=== PATIENT | female | born 1990 | race Caucasian/White ===

== ENCOUNTER 2017-01-09 18:43 | Emergency (ER) | payer OTHER ==
[2017-01-09 18:57] VITALS: BP 121/66; PULSE 87; O2SAT 97
--- NOTE | 2017-01-09 19:33 | ERPHSYRPT ---
- History of Present Illness Time Seen by Provider: 01/09/17 19:20 Source: patient Exam Limitations: clinical condition Patient Subjective Stated Complaint: gave blood today and now having weakness and dizziness. states passed out after looking at puncture site on left arm. this happened around 4pm today Triage Nursing Assessment: ambulated to room per self. skin w/d, color normal, resp easy. incident response manager equal, andres, a/o times three. Physician History: PATIENT HAD SYNCOPAL EPISODE AFTER DONATING BLOOD TODAY. HAD ASSOCIATED NAUSEA WITH DIZZINESS. DENIES HEADACHE, CHEST PAIN OR PALPITATIONS. ADMITS TO ONLY BEING HERE DUE TO HER BOSS AT WORK. REFUSES ALL LAB DRAWS. Witnessed: bystander Prior Episodes: multiple episodes today Timing/Duration: today Precipitating Factors: other (BLOOD DONOR) Context: standing Loss of Consciousness: no loss of consciousness Charcter of event(s): almost passed out Allergies/Adverse Reactions: cephalexin monohydrate [From KeEye-Fi] Allergy (Mild, Verified 01/09/17 18:52) Hives Home Medications: Ergocalciferol (Vitamin D2) [Vitamin D] 50,000 unit PO WEEKLY 01/09/17 [History] Hydroxyzine HCl 25 mg [Atarax 25 mg] 25 mg PO TID 01/09/17 [History] Trazodone HCl 50 mg [Desyrel 50 mg] 50 mg PO HS 01/09/17 [History] Venlafaxine HCl ER 75 mg [Effexor XR 75 MG] 75 mg PO DAILY 01/09/17 [ History] Hx Tetanus, Diphtheria Vaccination/Date Given: Yes Hx Influenza Vaccination/Date Given: No Hx Pneumococcal Vaccination/Date Given: No - Past Medical History Pertinent Past Medical History: Yes Neurological History: No Pertinent History ENT History: No Pertinent History Cardiac History: No Pertinent History Respiratory History: No Pertinent History Endocrine Medical History: No Pertinent History Musculoskeletal History: Arthritis GI Medical History: No Pertinent History Psycho-Social History: No Pertinent History Other Medical History: chronic back pain secondary to degenerative disk disease - Past Surgical History Past Surgical History: Yes Musculoskeletal: Orthopedic Surgery Other Surgical History: knee - tonsils - myringotomy - Social History Smoking Status: Current every day smoker How long have you smoked: YRS Exposure to second hand smoke: Yes Drug Use: none Patient Lives Alone: Yes - Female History Hx Now: No (Mirena BC) - Review of Systems Constitutional: No Fever, No Chills Eyes: No Symptoms Ears, Nose, & Throat: No Symptoms Respiratory: No Symptoms, No Cough, No Dyspnea Cardiac: No Symptoms, No Chest Pain, No Edema, No Syncope Abdominal/Gastrointestinal: No Symptoms, No Abdominal Pain, No Nausea, No Vomiting, No Diarrhea Genitourinary Symptoms: No Symptoms, No Dysuria Musculoskeletal: No Back Pain, No Neck Pain Skin: No Rash Neurological: No Dizziness, No Focal Weakness, No Sensory Changes Psychological: No Symptoms Endocrine: No Symptoms All Other Systems: Reviewed and Negative Physical Exam - Nursing Vital Signs Nursing Vital Signs: Initial Vital Signs Temperature 97.8 F Temperature Source Oral Pulse Rate 87 Respiratory Rate 18 Blood Pressure [Right Arm] 121/66 Pain Intensity 3 - [place] Coma Scale Best Eye Response (Christiano): (4) open spontaneously Best Verbal Response (Christiano): (5) oriented Best Motor Response ([place]): (6) obeys commands Christiano Total: 15 - Physical Exam General Appearance: no apparent distress, alert Eye Exam: bilateral eye: normal inspection, PERRL, EOMI Ears, Nose, Throat Exam: normal ENT inspection, pharynx normal, moist mucous membranes Neck Exam: normal inspection, non-tender, supple, full range of motion Respiratory: normal breath sounds, lungs clear, No chest tenderness, No respiratory distress Cardiovascular: regular rate/rhythm, capillary refill <2 sec, No murmur, No pulse deficit Gastrointestinal: soft, No tenderness, No distention, No mass Back Exam: normal inspection, normal range of motion, No CVA tenderness, No vertebral tenderness Extremity Exam: normal inspection, normal range of motion, pelvis stable, No tenderness Peripheral Pulses: carotid (R): 2+, carotid (L): 2+, femoral (R): 2+, femoral (L ): 2+, dorsalis-pedis (R): 2+, dorsalis-pedis (L): 2+ Mental Status: alert, oriented x 3, 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 Exam: normal speech, PERRL, No facial droop Coordination/Gait: normal finger to nose Motor/Sensory: no motor deficit, no sensory deficit, no pronator drift DTR: bicep (R): 2+, bicep (L): 2+, tricep (R): 2+, tricep (L): 2+, knee (R): 2+ , knee (L): 2+, ankle (R): 2+, ankle (L): 2+ Skin Exam: normal color, warm, dry, No rash SpO2 Interpretation: normal SpO2: 97 Oxygen Delivery: Room Air Ordered Tests: Active Orders 24 hr Category Date Time Status Clean Catch Urine Specimen STAT Care 01/09/17 19:31 Active EKG-ER Only STAT Care 01/09/17 19:31 Active IV Insertion STAT Care 01/09/17 19:31 Active BMP Stat Lab 01/09/17 19:31 Ordered CBC W DIFF Stat Lab 01/09/17 19:31 Ordered UA Stat Lab 01/09/17 19:31 Ordered Urine Triage Profile Stat Lab 01/09/17 19:31 Uncollected Medication Summary Generic Name Dose Route Start Last Admin Trade Name Freq PRN Reason Stop Dose Admin Sodium Chloride 1,000 mls @ 500 mls/hr 01/09/17 19:45 Sodium Chloride 0.9% 1000 Ml IV 02/08/17 19:44 .Q2H RASHEL - Progress Progress Note: 01/09/17 19:47, ORTHOSTATIC VS ARE NORMAL LAB TESTS, EKG AND IV FLUIDS ORDERED BUT PATIENT REFUSES AND SIGNS OUT AMA - Departure Time of Disposition: 19:35 Departure Disposition: AMA Clinical Impression: SYNCOPE Condition: Stable Critical Care Time: No Additional Instructions: CONSULT YOUR FAMILY PHYSICIAN FOR FOLLOWUP NEEDED.
[2017-01-09] MEDS ORDERED: Sodium Chloride 0.9% 1000 ML 1,000 ML IV SCH (19:45)
== END 2017-01-09 19:49 | disposition left against medical advice (07) ==
LOC: ED 18:43
DX: R55 Syncope and collapse (principal)
CPT/HCPCS: 99281

== ENCOUNTER 2019-05-22 05:16 | Emergency (ER) | payer OTHER ==
[2019-05-22] MEDS ORDERED: MORPHINE SULFATE 4 MG INJ IV ONE (05:35)
[2019-05-22] MEDS ORDERED: Pepcid 20 MG VIAL IV ONE ×2 (05:35→05:46)
[2019-05-22] MEDS ORDERED: Zofran 4 MG/2 ML VIAL IV ONE (05:35)
[2019-05-22] MEDS ORDERED: Sodium Chloride 0.9% 1000 ML 1,000 ML IV STA (05:35)
--- NOTE | 2019-05-22 05:42 | ERPHSYRPT ---
- History of Present Illness Time Seen by Provider: 05/22/19 05:25 Exam Limitations: no limitations Patient Subjective Stated Complaint: Abdominal pain Triage Nursing Assessment: Patient ambulated back to ED and transferred self to bed. Patient A+O X3. Patient's skin pink, warm and dry. Patient complains of abdominal pain 7/10 constant sharp stabbing pain. Patient states pain has lasted one month. Patient had ultrasound of gallbladder yesterday. Patient has been having vomiting and diarrhea. Patient's abdomen round and soft with BS X4. Physician History: Patient had a sudden onset of upper abdominal pain while asleep one hour prior to coming into the emergency department. Patient has had intermittent type symptoms of the abdominal pain with intermittent diarrhea, nausea and vomiting over the past one month. Activities at Onset: none, sleep Abdominal Pain Onset Location: RUQ, epigastric Pain Radiation: RUQ, LUQ Severity of Pain-Max: severe Severity of Pain-Current: severe Modifying Factors: Improves With: nothing. Worsens With: breathing, coughing, movement, rest Associated Symptoms: diarrhea, nausea, vomiting, No back, No chest pain, No diaphoresis, No fever/chills, No fatigue, No headache, No heartburn, No loss of appetite, No neck pain, No rash, No shortness of breath, No syncope, No weakness Previous symptoms: same symptoms as today, recently seen, other (had a RUQ ultrasound on 05/21/2019) Allergies/Adverse Reactions: cephalexin monohydrate [From Keflex] Allergy (Mild, Verified 05/22/19 05:26) Hives Home Medications: Omeprazole 1 tab PO DAILY 05/22/19 [History] Hx Tetanus, Diphtheria Vaccination/Date Given: Yes Hx Influenza Vaccination/Date Given: No Hx Pneumococcal Vaccination/Date Given: No Immunizations Up to Date: Yes - Review of Systems Constitutional: No Fever, No Chills Eyes: No Eye Pain, No Vision Changes Ears, Nose, & Throat: No Throat Pain, No Hoarse Respiratory: No Cough, No Dyspnea Cardiac: No Chest Pain, No Edema, No Syncope Abdominal/Gastrointestinal: Abdominal Pain, No Nausea, No Vomiting, No Diarrhea , No Constipation, No Hematemesis, No Hematochezia, No Melena Genitourinary Symptoms: No Dysuria, No Frequency, No Hematuria, No Flank Pain Musculoskeletal: No Back Pain, No Neck Pain Skin: No Rash Neurological: No Dizziness, No Focal Weakness, No Sensory Changes Psychological: No Alcohol Abuse, No Anxiety Endocrine: No Polyuria, No Polydipsia Hematologic/Lymphatic: No Easy Bleeding, No Easy Bruising All Other Systems: Reviewed and Negative - Past Medical History Pertinent Past Medical History: Yes Neurological History: No Pertinent History ENT History: No Pertinent History Cardiac History: No Pertinent History Respiratory History: No Pertinent History Endocrine Medical History: No Pertinent History Musculoskeletal History: Arthritis GI Medical History: No Pertinent History History: No Pertinent History Psycho-Social History: Depression Female Reproductive Disorders: No Pertinent History Other Medical History: chronic back pain secondary to degenerative disk disease - Past Surgical History Past Surgical History: Yes Neuro Surgical History: No Pertinent History Cardiac: No Pertinent History Gastrointestinal: No Pertinent History Genitourinary: No Pertinent History Musculoskeletal: Orthopedic Surgery Female Surgical History: No Pertinent History Other Surgical History: knee - tonsils - myringotomy - Social History Smoking Status: Never smoker How long have you smoked: YRS Exposure to second hand smoke: Yes Drug Use: none Patient Lives Alone: No - Female History Hx Last Menstrual Period: Mirena Hx Now: No - Nursing Vital Signs Nursing Vital Signs: Initial Vital Signs Temperature 98.5 F 05/22/19 05:28 Pulse Rate 87 05/22/19 05:28 Respiratory Rate 18 05/22/19 05:28 Blood Pressure 121/93 05/22/19 05:28 O2 Sat by Pulse Oximetry 96 05/22/19 05:28 Pain Scale Pain Intensity 7 - Physical Exam General Appearance: no apparent distress, alert Eye Exam: PERRL/EOMI, eyes nml inspection, No scleral icterus Ears, Nose, Throat Exam: normal ENT inspection, pharynx normal, moist mucous membranes Neck Exam: normal inspection, non-tender, supple, full range of motion Respiratory Exam: normal breath sounds, lungs clear, airway intact, No chest tenderness, No respiratory distress, No diminished breath sounds, No accessory muscle use, No crackles/rales, No rhonchi, No wheezing, No stridor Cardiovascular Exam: regular rate/rhythm, normal heart sounds, normal peripheral pulses, capillary refill <2 sec Gastrointestinal/Abdomen Exam: soft, normal bowel sounds, tenderness (on deep palpation, positive RUQ ultrasound), No mass, No rebound Back Exam: normal inspection, normal range of motion, No CVA tenderness, No vertebral tenderness Extremity Exam: normal inspection, normal range of motion, pelvis stable Neurologic Exam: alert, oriented x 3, cooperative, normal mood/affect, nml cerebellar function, sensation nml, No motor deficits Skin Exam: normal color, warm, dry SpO2 Interpretation: normal SpO2: 96 O2 Delivery: Room Air - Course Nursing assessment & vital signs reviewed: Yes EKG Interpreted by Me: RATE (75), Sinus Rhythm, NORMAL AXIS, NORMAL INTERVALS, NORMAL QRS, NORMAL ST-T - Radiology Ultrasound Exam Gallbladder Ultrasound: Other (Per radiologist report: Mild fatty liver, otherwise negative findings in the gallbladder, kidneys and pancreas as seen with overall impression being negative RUQ sonogram besides mild fatty liver) Ordered Tests: Active Orders 24 hr Category Date Time Status EKG-ER Only STAT Care 05/22/19 05:35 Active IV Insertion STAT Care 05/22/19 05:35 Active NPO (ED) STAT Care 05/22/19 05:35 Active AMYLASE Stat Lab 05/22/19 05:49 Completed CBC W DIFF Stat Lab 05/22/19 05:49 Completed CMP Stat Lab 05/22/19 05:49 Completed HCG,QUALITATIVE URINE Stat Lab 05/22/19 05:49 Completed LIPASE Stat Lab 05/22/19 05:49 Completed Lactic Acid Stat Lab 05/22/19 05:35 Completed TROPONIN Q3H Lab 05/22/19 05:49 Completed TROPONIN Q3H Lab 05/22/19 08:45 Ordered TROPONIN Q3H Lab 05/22/19 11:45 Ordered TROPONIN Q3H Lab 05/22/19 14:45 Ordered TROPONIN Q3H Lab 05/22/19 17:45 Ordered UA W/RFX UR CULTURE Stat Lab 05/22/19 05:49 Completed Medication Summary Discontinued Medications Generic Name Dose Route Start Last Admin Trade Name Freq PRN Reason Stop Dose Admin Famotidine 20 mg 05/22/19 05:35 05/22/19 05:58 Pepcid 20 Mg Vial IV 05/22/19 05:36 20 mg STAT ONE Administration Famotidine Confirm 05/22/19 05:46 Pepcid 20 Mg Vial Administered 05/22/19 05:47 Dose 20 mg IV .STK-MED ONE Sodium Chloride 1,000 mls @ 999 mls/hr 05/22/19 05:35 05/22/19 05:58 Sodium Chloride 0.9% 1000 Ml IV 05/22/19 06:35 999 mls/hr .Q1H1M STA Administration Sodium Chloride Confirm 05/22/19 05:46 Sodium Chloride 0.9% 1000 Ml Administered 05/22/19 05:47 Dose 1,000 mls @ ud .ROUTE .STK-MED ONE Morphine Sulfate 4 mg 05/22/19 05:35 05/22/19 05:58 Morphine Sulfate 4 Mg Inj IV 05/22/19 05:36 4 mg STAT ONE Administration Morphine Sulfate Confirm 05/22/19 05:46 Morphine Sulfate 4 Mg Inj Administered 05/22/19 05:47 Dose 4 mg .ROUTE .STK-MED ONE Ondansetron HCl 4 mg 05/22/19 05:35 05/22/19 05:58 Zofran 4 Mg/2 Ml Vial IV 05/22/19 05:36 4 mg STAT ONE Administration Ondansetron HCl Confirm 05/22/19 05:45 Zofran 4 Mg/2 Ml Vial Administered 05/22/19 05:46 Dose 4 mg .ROUTE .STK-MED ONE Lab/Rad Data: Laboratory Result Diagrams 05/22/19 05:49 05/22/19 05:49 Laboratory Results 05/22/19 05/22/19 05/22/19 Range/Units 05:49 05:49 05:49 WBC (4.0-10.5) K/mm3 RBC (4.1-5.4) M/mm3 Hgb (12.0-16.0) gm/dl Hct (35-47) % MCV (78-100) fl MCH (26-32) pg MCHC (32-36) g/dl RDW (11.5-14.0) % Plt Count (150-450) K/mm3 MPV (6-9.5) fl Gran % (36.0-66.0) % Eos # (Auto) (0-0.5) Absolute Lymphs (auto) (1.0-4.6) Absolute Monos (auto) (0.0-1.3) Lymphocytes % (24.0-44.0) % Monocytes % (0.0-12.0) % Eosinophils % (0.00-5.0) % Basophils % (0.0-0.4) % Absolute Granulocytes (1.4-6.9) Basophils # (0-0.4) Sodium (137-145) mmol/L Potassium (3.5-5.1) mmol/L Chloride (98-107) mmol/L Carbon Dioxide (22-30) mmol/L Anion Gap (5-15) MEQ/L BUN (7-17) mg/dL Creatinine (0.52-1.04) mg/dL Estimated GFR ML/MIN Glucose (74-106) mg/dL Lactic Acid (0.4-2.0) Calcium (8.4-10.2) mg/dL Total Bilirubin (0.2-1.3) mg/dL AST (14-36) U/L ALT (0-35) U/L Alkaline Phosphatase (38-126) U/L Troponin I < 0.012 (0.000-0.034) ng/mL Serum Total Protein (6.3-8.2) g/dL Albumin (3.5-5.0) g/dL Amylase (30-110) U/L Lipase (23-300) U/L Urine Color YELLOW (YELLOW) Urine Appearance CLEAR (CLEAR) Urine pH 7.0 (5-6) Ur Specific [place] 1.011 (1.005-1.025) Urine Protein NEGATIVE (Negative) Urine Ketones NEGATIVE (NEGATIVE) Urine Blood SMALL (0-5) Ajay/ul Urine Nitrite NEGATIVE (NEGATIVE) Urine Bilirubin NEGATIVE (NEGATIVE) Urine Urobilinogen NEGATIVE (0-1) mg/dL Ur Leukocyte Esterase NEGATIVE (NEGATIVE) Urine WBC (Auto) NONE (0-5) /HPF Urine RBC (Auto) NONE (0-2) /HPF U Epithel Cells (Auto) RARE (FEW) /HPF Urine Bacteria (Auto) NONE (NEGATIVE) /HPF Urine Mucus (Auto) SLIGHT (NEGATIVE) /HPF Urine Culture Reflexed NO (NO) Urine Glucose NEGATIVE (NEGATIVE) mg/dL Urine HCG, Qual NEGATIVE (Negative) 05/22/19 05/22/19 05/22/19 Range/Units 05:49 05:49 05:35 WBC 5.1 (4.0-10.5) K/mm3 RBC 4.54 (4.1-5.4) M/mm3 Hgb 15.2 (12.0-16.0) gm/dl Hct 43.9 (35-47) % MCV 96.7 (78-100) fl MCH 33.5 H (26-32) pg MCHC 34.6 (32-36) g/dl RDW 12.7 (11.5-14.0) % Plt Count 147 L (150-450) K/mm3 MPV 8.8 (6-9.5) fl Gran % 58.7 (36.0-66.0) % Eos # (Auto) 0.18 (0-0.5) Absolute Lymphs (auto) 1.65 (1.0-4.6) Absolute Monos (auto) 0.26 (0.0-1.3) Lymphocytes % 32.3 (24.0-44.0) % Monocytes % 5.1 (0.0-12.0) % Eosinophils % 3.5 (0.00-5.0) % Basophils % 0.4 (0.0-0.4) % Absolute Granulocytes 3.00 (1.4-6.9) Basophils # 0.02 (0-0.4) Sodium 138 (137-145) mmol/L Potassium 3.6 (3.5-5.1) mmol/L Chloride 104 (98-107) mmol/L Carbon Dioxide 26 (22-30) mmol/L Anion Gap 12.1 (5-15) MEQ/L BUN 7 (7-17) mg/dL Creatinine 0.70 (0.52-1.04) mg/dL Estimated GFR > 60.0 ML/MIN Glucose 89 (74-106) mg/dL Lactic Acid 1.0 (0.4-2.0) Calcium 8.2 L (8.4-10.2) mg/dL Total Bilirubin 0.50 (0.2-1.3) mg/dL AST 191 H (14-36) U/L ALT 68 H (0-35) U/L Alkaline Phosphatase 109 (38-126) U/L Troponin I (0.000-0.034) ng/mL Serum Total Protein 6.9 (6.3-8.2) g/dL Albumin 3.8 (3.5-5.0) g/dL Amylase 60 (30-110) U/L Lipase 130 (23-300) U/L Urine Color (YELLOW) Urine Appearance (CLEAR) Urine pH (5-6) Ur Specific [place] (1.005-1.025) Urine Protein (Negative) Urine Ketones (NEGATIVE) Urine Blood (0-5) Ajay/ul Urine Nitrite (NEGATIVE) Urine Bilirubin (NEGATIVE) Urine Urobilinogen (0-1) mg/dL Ur Leukocyte Esterase (NEGATIVE) Urine WBC (Auto) (0-5) /HPF Urine RBC (Auto) (0-2) /HPF U Epithel Cells (Auto) (FEW) /HPF Urine Bacteria (Auto) (NEGATIVE) /HPF Urine Mucus (Auto) (NEGATIVE) /HPF Urine Culture Reflexed (NO) Urine Glucose (NEGATIVE) mg/dL Urine HCG, Qual (Negative) - Progress Progress: improved, re-examined Progress Note: 05/22/19 06:43 pain has resolved after IV hydration and IV medication. No abdominal pain on repeat abdominal examination, no CVA tenderness bilaterally. Counseled pt/family regarding: lab results, diagnosis, need for follow-up, rad results - Departure Departure Disposition: Home Clinical Impression: RUQ abdominal pain, Elevated LFTs, Fatty liver, Elevated blood pressure reading without diagnosis of hypertension Condition: Good Critical Care Time: No Referrals: SAHRA GALVEZ MD [Primary Care Provider] - 05/24/19 Instructions: Acute Abdomen (Belly Pain), Nonalcoholic Steatohepatitis (GARCÍA), Toxic Hepatitis Additional Instructions: Return immediately to the emergency department if abdominal pain returns and worsens, any fevers, any nausea vomiting, new skin rashes, new chest pain, shortness of breath, new back pain or any other concerning signs or symptoms that were not present at the return visit for immediate reevaluation in the emergency department.
[2019-05-22] MEDS ORDERED: Zofran 4 MG/2 ML VIAL ONE (05:45)
[2019-05-22] MEDS ORDERED: Sodium Chloride 0.9% 1000 ML 1,000 ML ONE (05:46)
[2019-05-22] MEDS ORDERED: MORPHINE SULFATE 4 MG INJ ONE (05:46)
[2019-05-22 05:48] LABS: BASOPHIL % 0.4 % (0.0-0.4); Basophil (Absolute #) 0.02 (0-0.4); Eosinophil % 3.5 % (0.00-5.0); Eosinophil (Absolute #) 0.18 (0-0.5); Granulocytes % 58.7 % (36.0-66.0); Hematocrit 43.9 % (35-47); Hemoglobin 15.2 gm/dl (12.0-16.0); Lymphocyte (Absolute #) 1.65 (1.0-4.6); Lymphocytes % 32.3 % (24.0-44.0); Mean Cell Volume 96.7 fl (78-100); Mean Corpuscular Hemoglobin 33.5 pg (26-32); Mean Corpuscular Hgb Concent. 34.6 g/dl (32-36); Mean Platelet Volume 8.8 fl (6-9.5); Monocyte (Absolute #) 0.26 (0.0-1.3); Monocytes % 5.1 % (0.0-12.0); Platelet Count 147 K/mm3 (150-450); Red Blood Count 4.54 M/mm3 (4.1-5.4); Red Cell Distribution Width 12.7 % (11.5-14.0); White Blood Count 5.1 K/mm3 (4.0-10.5)
[2019-05-22 05:49] LABS: Appearance CLEAR (CLEAR); Bilirubin NEGATIVE (NEGATIVE); Blood SMALL Ery/ul (0-5); Epithelial Cells RARE /HPF (FEW); Glucose NEGATIVE (NEGATIVE); Ketones NEGATIVE (NEGATIVE); Leukocyte Esterase NEGATIVE (NEGATIVE); Mucus SLIGHT /HPF (NEGATIVE); Nitrite NEGATIVE (NEGATIVE); Protein,Urine Dip NEGATIVE (Negative); Specific Gravity 1.011 (1.005-1.025); Urobilinogen NEGATIVE mg/dL (0-1)
[2019-05-22 06:01] LABS: ALBUMIN 3.8 g/dL (3.5-5.0); ALKALINE PHOSPHATASE 109 U/L (38-126); AMYLASE 60 U/L (30-110); ANION GAP 12.1 MEQ/L (5-15); BLOOD UREA NITROGEN 7 mg/dL (7-17); CHLORIDE 104 mmol/L (98-107); Calcium 8.2 mg/dL (8.4-10.2); Carbon Dioxide 26 mmol/L (22-30); Glucose 89 mg/dL (74-106); Potassium 3.6 mmol/L (3.5-5.1); SGOT/AST 191 U/L (14-36); SGPT/ALT 68 U/L (0-35); SODIUM 138 mmol/L (137-145); Total Protein 6.9 g/dL (6.3-8.2)
[2019-05-22 06:07] LABS: LIPASE 130 U/L (23-300)
[2019-05-22 06:58] VITALS: BP 128/86; PULSE 80; O2SAT 97
== END 2019-05-22 07:17 | disposition home or self-care (01) ==
LOC: ED 05:16
DX: K77 Liver disorders in diseases classified elsewhere (principal); R10.11 Right upper quadrant pain; R79.89 Other specified abnormal findings of blood chemistry; K76.0 Fatty (change of) liver, not elsewhere classified
CPT/HCPCS: 36000; 36415; 80053; 81001; 82150; 83605; 83690; 84484; 84703; 85025; 93005; 96360; 96374; 96375; 99284; J2270; J2405

== ENCOUNTER 2020-04-09 10:45 | Observation (INO) | payer OTHER ==
--- NOTE | 2020-04-09 11:15 | ERPHSYRPT ---
- History of Present Illness Time Seen by Provider: 04/09/20 11:11 Historian: patient Exam Limitations: no limitations Patient Subjective Stated Complaint: vomiting/abdominal pain Triage Nursing Assessment: Patient ambulated back to ED and transferred self to bed. Patient A+O X3. Patient's skin flushed, warm and dry. Patient states she is having right sided abdominal pain with vomiting and diarrhea. Patient states she was seen in [facility] care on Friday and prescribed Zofran and was made an appointment with Dr. Hardy for April 11. Patient states she was scheduled last to have her gallblader removed, but cancelled surgery. Patient's a bdomen soft and round with BS X 4. Patient complains of constant sharp pain in RUQ 8/10. Physician History: vomiting/abdominal pain for 2 days Patient is 30-year-old female came to the emergency room with abdominal pain nausea vomiting and right upper quadrant abdominal pain for last 1 to 2 days. Patient had gallbladder ultrasound last May and at that time patient HIDA scan showed that patient ejection fraction is only 26% which was suggestive of chronic cholecystitis. At that time surgery was scheduled but somehow patient did not got her surgery done. Since last 2 days she was having severe right upper quadrant abdominal pain associated with nausea and vomiting. Denies any fever diarrhea chest pain headache. Timing/Duration: yesterday Activities at Onset: none Quality: cramping Abdominal Pain Onset Location: RUQ Pain Radiation: no radiation Severity of Pain-Max: moderate Severity of Pain-Current: moderate Modifying Factors: Improves With: nothing Associated Symptoms: loss of appetite, nausea, vomiting Previous symptoms: same symptoms as today Allergies/Adverse Reactions: cephalexin monohydrate [From Keflex] Allergy (Mild, Verified 04/09/20 10:54) Hives Home Medications: Omeprazole 1 tab PO DAILY 05/22/19 [History] Hx Tetanus, Diphtheria Vaccination/Date Given: Yes Hx Influenza Vaccination/Date Given: Yes Hx Pneumococcal Vaccination/Date Given: No Immunizations Up to Date: Yes Travel Risk - International Travel Have you traveled outside of the country in past 3 weeks: No - Coronavirus Screening Are you exhibiting any of the following symptoms?: No Symptoms: Vomiting/Diarrhea Close contact with a COVID-19 positive Pt in past 14-21 Days: No - Review of Systems Constitutional: No Fever, No Chills Eyes: No Symptoms Ears, Nose, & Throat: No Symptoms Respiratory: No Cough, No Dyspnea Cardiac: No Chest Pain, No Edema, No Syncope Abdominal/Gastrointestinal: Abdominal Pain, Nausea, Vomiting, No Diarrhea Genitourinary Symptoms: No Dysuria Musculoskeletal: No Back Pain, No Neck Pain Skin: No Rash Neurological: No Dizziness, No Focal Weakness, No Sensory Changes Psychological: No Symptoms Endocrine: No Symptoms All Other Systems: Reviewed and Negative - Past Medical History Pertinent Past Medical History: Yes Neurological History: No Pertinent History ENT History: No Pertinent History Cardiac History: No Pertinent History Respiratory History: No Pertinent History Endocrine Medical History: No Pertinent History Musculoskeletal History: Arthritis GI Medical History: No Pertinent History History: No Pertinent History Psycho-Social History: Anxiety, Attention Deficit Disorder, Depression Female Reproductive Disorders: No Pertinent History Other Medical History: chronic back pain secondary to degenerative disk disease. smoker and vaping. - Past Surgical History Past Surgical History: Yes Neuro Surgical History: No Pertinent History Cardiac: No Pertinent History Respiratory: No Pertinent History Gastrointestinal: No Pertinent History Genitourinary: No Pertinent History Musculoskeletal: Orthopedic Surgery Female Surgical History: No Pertinent History Other Surgical History: knee - tonsils - myringotomy - Social History Smoking Status: Current every day smoker How long have you smoked: 16 Exposure to second hand smoke: No Drug Use: marijuana Patient Lives Alone: No - Female History Hx Last Menstrual Period: Mirena Hx Now: No - Nursing Vital Signs Nursing Vital Signs: Initial Vital Signs Temperature 98.6 F 04/09/20 10:55 Pulse Rate 90 04/09/20 10:55 Respiratory Rate 18 04/09/20 10:55 Blood Pressure 136/100 04/09/20 10:55 O2 Sat by Pulse Oximetry 97 04/09/20 10:55 Pain Scale Pain Intensity 8 - Physical Exam General Appearance: no apparent distress, alert Eye Exam: PERRL/EOMI, eyes nml inspection Ears, Nose, Throat Exam: normal ENT inspection, pharynx normal, moist mucous membranes Neck Exam: normal inspection, non-tender, supple, full range of motion Respiratory Exam: normal breath sounds, lungs clear, No respiratory distress Cardiovascular Exam: regular rate/rhythm, normal heart sounds Gastrointestinal/Abdomen Exam: soft, tenderness (right upper quadrant), No mass Back Exam: normal inspection, normal range of motion, No CVA tenderness, No vertebral tenderness Extremity Exam: normal inspection, normal range of motion, pelvis stable Neurologic Exam: alert, oriented x 3, cooperative, normal mood/affect, nml cerebellar function, sensation nml, No motor deficits Skin Exam: normal color, warm, dry SpO2: 97 - Course Nursing assessment & vital signs reviewed: Yes Ordered Tests: Active Orders 24 hr Category Date Time Status AMYLASE Stat Lab 04/09/20 11:20 Completed CBC W DIFF Stat Lab 04/09/20 11:20 Completed CMP Stat Lab 04/09/20 11:20 Completed CULTURE,URINE Stat Lab 04/09/20 11:27 Received HCG,QUALITATIVE URINE Stat Lab 04/09/20 11:27 Completed LIPASE Stat Lab 04/09/20 11:20 Completed Lactic Acid Stat Lab 04/09/20 11:17 Completed UA W/RFX UR CULTURE Stat Lab 04/09/20 11:27 Completed Transfer Order Routine Transfer 04/09/20 Ordered Medication Summary Generic Name Dose Route Start Last Admin Trade Name Freq PRN Reason Stop Dose Admin Levofloxacin/Dextrose 500 mg in 100 mls @ 100 mls/hr 04/09/20 11:56 Levofloxacin 500mg/100ml D5w IV 04/09/20 12:55 STAT STA Discontinued Medications Generic Name Dose Route Start Last Admin Trade Name Freq PRN Reason Stop Dose Admin Famotidine 20 mg 04/09/20 11:17 04/09/20 11:30 Pepcid 20 Mg Vial IV 04/09/20 11:18 20 mg STAT ONE Administration Famotidine Confirm 04/09/20 11:29 Pepcid 20 Mg Vial Administered 04/09/20 11:30 Dose 20 mg IV .STK-MED ONE Sodium Chloride 1,000 mls @ 999 mls/hr 04/09/20 11:17 04/09/20 11:30 Sodium Chloride 0.9% 1000 Ml IV 04/09/20 12:17 999 mls/hr .Q1H1M STA Administration Sodium Chloride Confirm 04/09/20 11:29 Sodium Chloride 0.9% 1000 Ml Administered 04/09/20 11:30 Dose 1,000 mls @ ud .ROUTE .STK-MED ONE Morphine Sulfate 4 mg 04/09/20 12:11 Morphine Sulfate 4 Mg Inj IV 04/09/20 12:12 STAT ONE Ondansetron HCl 4 mg 04/09/20 11:17 04/09/20 11:30 Zofran 4 Mg/2 Ml Vial IV 04/09/20 11:18 4 mg STAT ONE Administration Ondansetron HCl Confirm 04/09/20 11:29 Zofran 4 Mg/2 Ml Vial Administered 04/09/20 11:30 Dose 4 mg .ROUTE .STK-MED ONE Pantoprazole Sodium 40 mg 04/09/20 11:17 04/09/20 11:30 Protonix 40 Mg Iv IV 04/09/20 11:18 40 mg STAT ONE Administration Pantoprazole Sodium Confirm 04/09/20 11:29 Protonix 40 Mg Iv Administered 04/09/20 11:30 Dose 40 mg IV .STK-MED ONE Lab/Rad Data: Laboratory Result Diagrams 04/09/20 11:20 04/09/20 11:20 Laboratory Results 04/09/20 04/09/20 04/09/20 Range/Units 11:27 11:27 11:20 WBC (4.0-10.5) K/mm3 RBC (4.1-5.4) M/mm3 Hgb (12.0-16.0) gm/dl Hct (35-47) % MCV (78-100) fl MCH (26-32) pg MCHC (32-36) g/dl RDW (11.5-14.0) % Plt Count (150-450) K/mm3 MPV (7.5-11.0) fl Gran % (36.0-66.0) % Eos # (Auto) (0-0.5) Absolute Lymphs (auto) (1.0-4.6) Absolute Monos (auto) (0.0-1.3) Lymphocytes % (24.0-44.0) % Monocytes % (0.0-12.0) % Eosinophils % (0.00-5.0) % Basophils % (0.0-0.4) % Absolute Granulocytes (1.4-6.9) Basophils # (0-0.4) Sodium 137 (137-145) mmol/L Potassium 3.7 (3.5-5.1) mmol/L Chloride 104 (98-107) mmol/L Carbon Dioxide 22 (22-30) mmol/L Anion Gap 14.1 (5-15) MEQ/L BUN 3 L (7-17) mg/dL Creatinine 0.71 (0.52-1.04) mg/dL Estimated GFR > 60.0 ML/MIN Glucose 111 H (74-106) mg/dL Lactic Acid (0.4-2.0) Calcium 9.7 (8.4-10.2) mg/dL Total Bilirubin 0.70 (0.2-1.3) mg/dL AST 21 (14-36) U/L ALT 11 (0-35) U/L Alkaline Phosphatase 114 (38-126) U/L Serum Total Protein 8.3 H (6.3-8.2) g/dL Albumin 4.6 (3.5-5.0) g/dL Amylase 67 (30-110) U/L Lipase 58 (23-300) U/L Urine Color YELLOW (YELLOW) Urine Appearance SLIGHTLY CLOUDY (CLEAR) Urine pH 7.0 (5-6) Ur Specific [place] 1.008 (1.005-1.025) Urine Protein NEGATIVE (Negative) Urine Ketones NEGATIVE (NEGATIVE) Urine Blood SMALL (0-5) Ajay/ul Urine Nitrite NEGATIVE (NEGATIVE) Urine Bilirubin NEGATIVE (NEGATIVE) Urine Urobilinogen NEGATIVE (0-1) mg/dL Ur Leukocyte Esterase LARGE (NEGATIVE) Urine WBC (Auto) 51-100 (0-5) /HPF Urine RBC (Auto) 11-15 (0-2) /HPF U Epithel Cells (Auto) FEW (FEW) /HPF Urine Bacteria (Auto) RARE (NEGATIVE) /HPF Urine Culture Reflexed YES (NO) Urine Glucose NEGATIVE (NEGATIVE) mg/dL Urine HCG, Qual NEGATIVE (Negative) 04/09/20 04/09/20 Range/Units 11:20 11:17 WBC 16.2 H (4.0-10.5) K/mm3 RBC 5.46 H (4.1-5.4) M/mm3 Hgb 16.9 H (12.0-16.0) gm/dl Hct 49.3 H (35-47) % MCV 90.3 (78-100) fl MCH 31.0 (26-32) pg MCHC 34.3 (32-36) g/dl RDW 12.1 (11.5-14.0) % Plt Count 449 (150-450) K/mm3 MPV 9.3 (7.5-11.0) fl Gran % 80.4 H (36.0-66.0) % Eos # (Auto) 0.10 (0-0.5) Absolute Lymphs (auto) 2.42 (1.0-4.6) Absolute Monos (auto) 0.62 (0.0-1.3) Lymphocytes % 15.0 L (24.0-44.0) % Monocytes % 3.8 (0.0-12.0) % Eosinophils % 0.6 (0.00-5.0) % Basophils % 0.2 (0.0-0.4) % Absolute Granulocytes 13.00 H (1.4-6.9) Basophils # 0.04 (0-0.4) Sodium (137-145) mmol/L Potassium (3.5-5.1) mmol/L Chloride (98-107) mmol/L Carbon Dioxide (22-30) mmol/L Anion Gap (5-15) MEQ/L BUN (7-17) mg/dL Creatinine (0.52-1.04) mg/dL Estimated GFR ML/MIN Glucose (74-106) mg/dL Lactic Acid 1.4 (0.4-2.0) Calcium (8.4-10.2) mg/dL Total Bilirubin (0.2-1.3) mg/dL AST (14-36) U/L ALT (0-35) U/L Alkaline Phosphatase (38-126) U/L Serum Total Protein (6.3-8.2) g/dL Albumin (3.5-5.0) g/dL Amylase (30-110) U/L Lipase (23-300) U/L Urine Color (YELLOW) Urine Appearance (CLEAR) Urine pH (5-6) Ur Specific [place] (1.005-1.025) Urine Protein (Negative) Urine Ketones (NEGATIVE) Urine Blood (0-5) Ajay/ul Urine Nitrite (NEGATIVE) Urine Bilirubin (NEGATIVE) Urine Urobilinogen (0-1) mg/dL Ur Leukocyte Esterase (NEGATIVE) Urine WBC (Auto) (0-5) /HPF Urine RBC (Auto) (0-2) /HPF U Epithel Cells (Auto) (FEW) /HPF Urine Bacteria (Auto) (NEGATIVE) /HPF Urine Culture Reflexed (NO) Urine Glucose (NEGATIVE) mg/dL Urine HCG, Qual (Negative) - Progress Progress: unchanged Progress Note: 04/09/20 12:[address] Carter Hardy who is a surgeon. He advised patient to be admitted and ordered a gallbladder ultrasound in the morning and then they will proceed for further surgical intervention tomorrow. Discussed with DrMarylou: Haven Fam B.Lynch Will see patient in: hospital (observation) Counseled pt/family regarding: lab results, diagnosis, need for follow-up, rad results - Departure Departure Disposition: Observation Clinical Impression: RUQ abdominal pain, Chronic cholecystitis Condition: Fair Critical Care Time: Yes Critical Care Time(excluding separately billable procedures): Critical 30-74 mins Referrals: SAHRA GALVEZ MD [Primary Care Provider] -
[2020-04-09] MEDS ORDERED: Sodium Chloride 0.9% 1000 ML 1,000 ML IV STA (11:17)
[2020-04-09] MEDS ORDERED: Pepcid 20 MG VIAL IV ONE ×2 (11:17→11:29)
[2020-04-09] MEDS ORDERED: PROTONIX 40 MG IV IV ONE ×2 (11:17→11:29)
[2020-04-09] MEDS ORDERED: Zofran 4 MG/2 ML VIAL IV ONE (11:17)
[2020-04-09 11:24] LABS: BASOPHIL % 0.2 % (0.0-0.4); Basophil (Absolute #) 0.04 (0-0.4); Eosinophil % 0.6 % (0.00-5.0); Hematocrit 49.3 % (35-47); Hemoglobin 16.9 gm/dl (12.0-16.0); Lymphocyte (Absolute #) 2.42 (1.0-4.6); Mean Cell Volume 90.3 fl (78-100); Mean Corpuscular Hgb Concent. 34.3 g/dl (32-36); Mean Platelet Volume 9.3 fl (7.5-11.0); Monocyte (Absolute #) 0.62 (0.0-1.3); Monocytes % 3.8 % (0.0-12.0); Neutrophil % 80.4 % (36.0-66.0); Platelet Count 449 K/mm3 (150-450); Red Blood Count 5.46 M/mm3 (4.1-5.4); Red Cell Distribution Width 12.1 % (11.5-14.0); White Blood Count 16.2 K/mm3 (4.0-10.5)
[2020-04-09] MEDS ORDERED: Zofran 4 MG/2 ML VIAL ONE (11:29)
[2020-04-09] MEDS ORDERED: Sodium Chloride 0.9% 1000 ML 1,000 ML ONE (11:29)
[2020-04-09 11:39] LABS: ALBUMIN 4.6 g/dL (3.5-5.0); ALKALINE PHOSPHATASE 114 U/L (38-126); AMYLASE 67 U/L (30-110); ANION GAP 14.1 MEQ/L (5-15); BLOOD UREA NITROGEN 3 mg/dL (7-17); CHLORIDE 104 mmol/L (98-107); Calcium 9.7 mg/dL (8.4-10.2); Carbon Dioxide 22 mmol/L (22-30); Creatinine 1 0.71 mg/dL (0.52-1.04); Glucose 111 mg/dL (74-106); LIPASE 58 U/L (23-300); Potassium 3.7 mmol/L (3.5-5.1); SGOT/AST 21 U/L (14-36); SGPT/ALT 11 U/L (0-35); SODIUM 137 mmol/L (137-145); Total Protein 8.3 g/dL (6.3-8.2)
[2020-04-09 11:47] LABS: Appearance SLIGHTLY CLOUDY (CLEAR); Bacteria RARE /HPF (NEGATIVE); Bilirubin NEGATIVE (NEGATIVE); Blood SMALL Ery/ul (0-5); Epithelial Cells FEW /HPF (FEW); Glucose NEGATIVE (NEGATIVE); Ketones NEGATIVE (NEGATIVE); Leukocyte Esterase LARGE (NEGATIVE); Nitrite NEGATIVE (NEGATIVE); Protein,Urine Dip NEGATIVE (Negative); Specific Gravity 1.008 (1.005-1.025); Urobilinogen NEGATIVE mg/dL (0-1); WBC 51-100 /HPF (0-5)
[2020-04-09] MEDS ORDERED: Levofloxacin 500MG/100ML D5W 500 MG/100 ML BAG IV STA (11:56)
[2020-04-09] MEDS ORDERED: MORPHINE SULFATE 4 MG INJ IV ONE (12:11)
[2020-04-09] MEDS ORDERED: Levofloxacin 500MG/100ML D5W 500 MG/100 ML BAG IV ONE (12:33)
[2020-04-09] MEDS ORDERED: MORPHINE SULFATE 4 MG INJ ONE (12:33)
[2020-04-09] MEDS: Sodium Chloride 0.9% 1000 ML 1,000 ML IV SCH ×2 (13:47→23:51)
[2020-04-09] MEDS: Zofran 4 MG/2 ML VIAL IV PRN ×2 (13:48→19:49)
[2020-04-09] MEDS: NICODERM CQ 14 MG TOP SCH (15:13)
[2020-04-09] MEDS: MORPHINE SULFATE 4 MG INJ IV PRN ×2 (16:35→20:35)
[2020-04-10] MEDS: MORPHINE SULFATE 4 MG INJ IV PRN ×3 (00:39→17:45)
[2020-04-10] MEDS: Zofran 4 MG/2 ML VIAL IV PRN ×3 (03:52→23:23)
[2020-04-10 05:01] LABS: Absolute Neutrophil Ct (ANC) 8.18 (1.4-6.9); BASOPHIL % 0.3 % (0.0-0.4); Basophil (Absolute #) 0.04 (0-0.4); Eosinophil % 3.5 % (0.00-5.0); Eosinophil (Absolute #) 0.46 (0-0.5); Hematocrit 42.9 % (35-47); Hemoglobin 14.3 gm/dl (12.0-16.0); Lymphocyte (Absolute #) 3.53 (1.0-4.6); Lymphocytes % 26.9 % (24.0-44.0); Mean Cell Volume 92.7 fl (78-100); Mean Corpuscular Hemoglobin 30.9 pg (26-32); Mean Corpuscular Hgb Concent. 33.3 g/dl (32-36); Mean Platelet Volume 9.2 fl (7.5-11.0); Monocytes % 6.9 % (0.0-12.0); Neutrophil % 62.4 % (36.0-66.0); Platelet Count 310 K/mm3 (150-450); Red Blood Count 4.63 M/mm3 (4.1-5.4); White Blood Count 13.1 K/mm3 (4.0-10.5)
[2020-04-10 05:20] LABS: ALBUMIN 3.4 g/dL (3.5-5.0); ALKALINE PHOSPHATASE 74 U/L (38-126); CHLORIDE 108 mmol/L (98-107); Calcium 8.5 mg/dL (8.4-10.2); Carbon Dioxide 23 mmol/L (22-30); Creatinine 1 0.61 mg/dL (0.52-1.04); Glucose 97 mg/dL (74-106); Potassium 3.5 mmol/L (3.5-5.1); SGOT/AST 15 U/L (14-36); SGPT/ALT 7 U/L (0-35); SODIUM 136 mmol/L (137-145); Total Protein 6.4 g/dL (6.3-8.2)
[2020-04-10 05:34] LABS: BLOOD UREA NITROGEN 2 mg/dL (7-17)
--- NOTE | 2020-04-10 08:34 | PCM.HP ---
History of Present Illness - Chief Complaint Chief Complaint: chronic cholecystitis History of Present Illness: is a 30 year old female with right upper quadrant pain, nausea and vomiting for 3 days prior to arrival. states she has had similar intermittent issues in the past. had a HIDA scan in 05/2019 with EF 26% and suggestive of chronic cholecystitis, she was scheduled to have cholecystectomy with Dr Enoc Hardy in the fall but cancelled due to a family member talking her out of having surgery. She has felt feverish but no known objective fever. had negative covid testing on 04/01, no cough, no shortness of breath, no sore throat. - Review of Systems Constitutional: No Fever, No Chills Respiratory: No Cough, No Short Of Breath Cardiac: No Chest Pain, No Edema, No Syncope Abdominal/Gastrointestinal: Abdominal Pain, Nausea, Vomiting, No Diarrhea, No Constipation Genitourinary Symptoms: No Dysuria Skin: No Rash All Other Systems: Reviewed and Negative Medications & Allergies Home Medications: Home Medication List Omeprazole 20 mg PO DAILY 05/22/19 [History Confirmed 04/09/20] Allergies/Adverse Reactions: Allergies Allergy/AdvReac Type Severity Reaction Status Date / Time cephalexin monohydrate Allergy Mild Hives Verified 04/09/20 10:54 [From Keflex] - Past Medical History Past Medical History: Yes Neurological History: No Pertinent History ENT History: Other Cardiac History: No Pertinent History Respiratory History: No Pertinent History Endocrine Medical History: Liver Disease Musculoskelatal History: No Pertinent History GI Medical History: No Pertinent History History: Other Pyscho-Social History: Anxiety, Depression Reproductive Disorders: No Pertinent History Comment: chronic back pain secondary to degenerative disk disease. smoker and vaping. wears glasses, fatty liver, UTI - Female History Hx Last Menstrual Period: Mirena Are you now?: No - Past Surgical History Past Surgical History: Yes Neuro Surgical History: No Pertinent History Cardiac History: No Pertinent History Respiratory Surgery: No Pertinent History GI Surgical History: No Pertinent History Genitourinary Surgical Hx: No Pertinent History Musculskeletal Surgical Hx: Orthopedic Surgery Female Surgical History: No Pertinent History Other Surgical History: knee - tonsils - adenoids - tubes in ears - Social History Smoking Status: Current every day smoker How long have you smoked: 12 years Exposure to second hand smoke: Yes Alcohol: None Drug Use: none - Physical Exam Vital Signs: Vital Signs - 24 hr Temp Pulse Resp BP Pulse Ox 04/10/20 07:24 99.1 F 77 16 122/67 98 04/10/20 04:10 98.7 F 67 16 112/55 96 04/09/20 23:51 98.7 F 71 18 119/76 96 04/09/20 20:00 98.2 F 73 16 113/69 97 04/09/20 16:00 99.5 F 71 16 128/72 95 04/09/20 14:54 98.6 F 67 20 102/84 04/09/20 12:46 67 20 102/84 04/09/20 12:25 97 04/09/20 10:55 98.6 F 90 18 136/100 97 General Appearance: no apparent distress Neurologic Exam: alert, oriented x 3, cooperative Respiratory Exam: normal breath sounds, lungs clear, No respiratory distress Cardiovascular Exam: regular rate/rhythm, normal heart sounds, normal peripheral pulses Gastrointestinal/Abdomen Exam: soft, normal bowel sounds, tenderness (mild RUQ), No guarding, No rebound, No hernia, No hepatomegaly, No organomegaly Extremity Exam: normal inspection, normal range of motion, pelvis stable Skin Exam: normal color, warm, dry, No rash Results - Labs Lab/Micro Results: Lab Results-Last 24 Hours 04/09/20 04/09/20 04/09/20 Range/Units 11:17 11:20 11:20 WBC 16.2 H (4.0-10.5) K/mm3 RBC 5.46 H (4.1-5.4) M/mm3 Hgb 16.9 H (12.0-16.0) gm/dl Hct 49.3 H (35-47) % MCV 90.3 (78-100) fl MCH 31.0 (26-32) pg MCHC 34.3 (32-36) g/dl RDW 12.1 (11.5-14.0) % Plt Count 449 (150-450) K/mm3 MPV 9.3 (7.5-11.0) fl Gran % 80.4 H (36.0-66.0) % Eos # (Auto) 0.10 (0-0.5) Absolute Lymphs (auto) 2.42 (1.0-4.6) Absolute Monos (auto) 0.62 (0.0-1.3) Lymphocytes % 15.0 L (24.0-44.0) % Monocytes % 3.8 (0.0-12.0) % Eosinophils % 0.6 (0.00-5.0) % Basophils % 0.2 (0.0-0.4) % Absolute Granulocytes 13.00 H (1.4-6.9) Basophils # 0.04 (0-0.4) Sodium 137 (137-145) mmol/L Potassium 3.7 (3.5-5.1) mmol/L Chloride 104 (98-107) mmol/L Carbon Dioxide 22 (22-30) mmol/L Anion Gap 14.1 (5-15) MEQ/L BUN 3 L (7-17) mg/dL Creatinine 0.71 (0.52-1.04) mg/dL Estimated GFR > 60.0 ML/MIN Glucose 111 H (74-106) mg/dL Lactic Acid 1.4 (0.4-2.0) Calcium 9.7 (8.4-10.2) mg/dL Total Bilirubin 0.70 (0.2-1.3) mg/dL AST 21 (14-36) U/L ALT 11 (0-35) U/L Alkaline Phosphatase 114 (38-126) U/L Serum Total Protein 8.3 H (6.3-8.2) g/dL Albumin 4.6 (3.5-5.0) g/dL Amylase 67 (30-110) U/L Lipase 58 (23-300) U/L Urine Color (YELLOW) Urine Appearance (CLEAR) Urine pH (5-6) Ur Specific [place] (1.005-1.025) Urine Protein (Negative) Urine Ketones (NEGATIVE) Urine Blood (0-5) Ajay/ul Urine Nitrite (NEGATIVE) Urine Bilirubin (NEGATIVE) Urine Urobilinogen (0-1) mg/dL Ur Leukocyte Esterase (NEGATIVE) Urine WBC (Auto) (0-5) /HPF Urine RBC (Auto) (0-2) /HPF U Epithel Cells (Auto) (FEW) /HPF Urine Bacteria (Auto) (NEGATIVE) /HPF Urine Culture Reflexed (NO) Urine Glucose (NEGATIVE) mg/dL Urine HCG, Qual (Negative) 08/02/20 08/02/20 08/03/20 Range/Units 11:27 11:27 04:40 WBC 13.1 H (4.0-10.5) K/mm3 RBC 4.63 (4.1-5.4) M/mm3 Hgb 14.3 (12.0-16.0) gm/dl Hct 42.9 (35-47) % MCV 92.7 (78-100) fl MCH 30.9 (26-32) pg MCHC 33.3 (32-36) g/dl RDW 12.0 (11.5-14.0) % Plt Count 310 (150-450) K/mm3 MPV 9.2 (7.5-11.0) fl Gran % 62.4 (36.0-66.0) % Eos # (Auto) 0.46 (0-0.5) Absolute Lymphs (auto) 3.53 (1.0-4.6) Absolute Monos (auto) 0.90 (0.0-1.3) Lymphocytes % 26.9 (24.0-44.0) % Monocytes % 6.9 (0.0-12.0) % Eosinophils % 3.5 (0.00-5.0) % Basophils % 0.3 (0.0-0.4) % Absolute Granulocytes 8.18 H (1.4-6.9) Basophils # 0.04 (0-0.4) Sodium (137-145) mmol/L Potassium (3.5-5.1) mmol/L Chloride (98-107) mmol/L Carbon Dioxide (22-30) mmol/L Anion Gap (5-15) MEQ/L BUN (7-17) mg/dL Creatinine (0.52-1.04) mg/dL Estimated GFR ML/MIN Glucose (74-106) mg/dL Lactic Acid (0.4-2.0) Calcium (8.4-10.2) mg/dL Total Bilirubin (0.2-1.3) mg/dL AST (14-36) U/L ALT (0-35) U/L Alkaline Phosphatase (38-126) U/L Serum Total Protein (6.3-8.2) g/dL Albumin (3.5-5.0) g/dL Amylase (30-110) U/L Lipase (23-300) U/L Urine Color YELLOW (YELLOW) Urine Appearance SLIGHTLY CLOUDY (CLEAR) Urine pH 7.0 (5-6) Ur Specific [place] 1.008 (1.005-1.025) Urine Protein NEGATIVE (Negative) Urine Ketones NEGATIVE (NEGATIVE) Urine Blood SMALL (0-5) Ajay/ul Urine Nitrite NEGATIVE (NEGATIVE) Urine Bilirubin NEGATIVE (NEGATIVE) Urine Urobilinogen NEGATIVE (0-1) mg/dL Ur Leukocyte Esterase LARGE (NEGATIVE) Urine WBC (Auto) 51-100 (0-5) /HPF Urine RBC (Auto) 11-15 (0-2) /HPF U Epithel Cells (Auto) FEW (FEW) /HPF Urine Bacteria (Auto) RARE (NEGATIVE) /HPF Urine Culture Reflexed YES (NO) Urine Glucose NEGATIVE (NEGATIVE) mg/dL Urine HCG, Qual NEGATIVE (Negative) 04/10/20 Range/Units 04:40 WBC (4.0-10.5) K/mm3 RBC (4.1-5.4) M/mm3 Hgb (12.0-16.0) gm/dl Hct (35-47) % MCV (78-100) fl MCH (26-32) pg MCHC (32-36) g/dl RDW (11.5-14.0) % Plt Count (150-450) K/mm3 MPV (7.5-11.0) fl Gran % (36.0-66.0) % Eos # (Auto) (0-0.5) Absolute Lymphs (auto) (1.0-4.6) Absolute Monos (auto) (0.0-1.3) Lymphocytes % (24.0-44.0) % Monocytes % (0.0-12.0) % Eosinophils % (0.00-5.0) % Basophils % (0.0-0.4) % Absolute Granulocytes (1.4-6.9) Basophils # (0-0.4) Sodium 136 L (137-145) mmol/L Potassium 3.5 (3.5-5.1) mmol/L Chloride 108 H (98-107) mmol/L Carbon Dioxide 23 (22-30) mmol/L Anion Gap 9.0 (5-15) MEQ/L BUN 2 L (7-17) mg/dL Creatinine 0.61 (0.52-1.04) mg/dL Estimated GFR > 60.0 ML/MIN Glucose 97 (74-106) mg/dL Lactic Acid (0.4-2.0) Calcium 8.5 (8.4-10.2) mg/dL Total Bilirubin 0.70 (0.2-1.3) mg/dL AST 15 (14-36) U/L ALT 7 (0-35) U/L Alkaline Phosphatase 74 (38-126) U/L Serum Total Protein 6.4 (6.3-8.2) g/dL Albumin 3.4 L (3.5-5.0) g/dL Amylase (30-110) U/L Lipase (23-300) U/L Urine Color (YELLOW) Urine Appearance (CLEAR) Urine pH (5-6) Ur Specific [place] (1.005-1.025) Urine Protein (Negative) Urine Ketones (NEGATIVE) Urine Blood (0-5) Ajay/ul Urine Nitrite (NEGATIVE) Urine Bilirubin (NEGATIVE) Urine Urobilinogen (0-1) mg/dL Ur Leukocyte Esterase (NEGATIVE) Urine WBC (Auto) (0-5) /HPF Urine RBC (Auto) (0-2) /HPF U Epithel Cells (Auto) (FEW) /HPF Urine Bacteria (Auto) (NEGATIVE) /HPF Urine Culture Reflexed (NO) Urine Glucose (NEGATIVE) mg/dL Urine HCG, Qual (Negative) - Radiology Impressions Radiology Exams & Impressions: Radiology Procedures Category Date Time Status GALLBLADDER [US] Routine Exams 04/10/20 07:00 Ordered - Other Procedures and Tests Respiratory Therapy 04/09/20 15:40 Smoking Cessation Education ONCE Assessment/Plan (1) Chronic cholecystitis Current Visit: Yes Status: Acute Assessment & Plan: gallbladder ultrasound pending, will continue levaquin and add flagyl with elevation of wbc and patient report of chills/subjective fever. those symptoms could be attributable to pyuria present Code(s): K81.1 - CHRONIC CHOLECYSTITIS (2) RUQ abdominal pain Current Visit: Yes Status: Acute Code(s): R10.11 - RIGHT UPPER QUADRANT PAIN (3) UTI (urinary tract infection) Current Visit: Yes Status: Acute Assessment & Plan: continue levaquin, culture pending. Code(s): N39.0 - URINARY TRACT INFECTION, SITE NOT SPECIFIED
[2020-04-10] MEDS: FLAGYL 500 MG IVPB 500 MG/100 ML BAG IV SCH ×3 (09:46→23:23)
[2020-04-10] MEDS: Protonix 40MG Tablet PO SCH (09:47)
[2020-04-10] MEDS: Sodium Chloride 0.9% 1000 ML 1,000 ML IV SCH ×2 (09:47→15:02)
[2020-04-10] MEDS ORDERED: NON-FORMULARY ITEM (Omeprazole [Omeprazole] 20 MG) PO SCH (10:00)
[2020-04-10] MEDS ORDERED: Lactated Ringers 1,000 ML IV ONE ×2 (10:33→12:31)
[2020-04-10] MEDS ORDERED: Sensorcaine 0.25% 10 ML ONE ×2 (10:33→12:32)
--- NOTE | 2020-04-10 11:39 | XRAY ---
Indication: Right upper quadrant pain. Two-dimensional gallbladder sonogram performed. Comparison: May 21, 2019. Pancreas not well-seen due to overlying bowel gas. Gallbladder again normally distended without gallstones, wall thickening, or pericholecystic fluid. Common bile duct measures 2.8 mm. Stable mild fatty echogenic liver without focal solid/cystic mass or ascites. Remaining visualized right kidney unremarkable measuring 10.2 cm in length. Incidental small right lung base effusion. Impression: 1. Pancreas not visualized. 2. Continued negative gallbladder sonogram. 3. Incidental right lung base effusion.
[2020-04-10] MEDS ORDERED: Zofran 4 MG/2 ML VIAL ONE (11:50)
[2020-04-10] MEDS ORDERED: SUBLIMAZE 100 MCG/2 ML ONE ×4 (11:50→14:16)
[2020-04-10] MEDS ORDERED: Xylocaine-Mpf 2% 5 Ml Vial ONE (11:50)
[2020-04-10] MEDS ORDERED: TORAdol 30 mg Injection ONE (11:50)
[2020-04-10] MEDS ORDERED: DIPRIVAN 200 MG/20 ML IV ONE (11:50)
[2020-04-10] MEDS ORDERED: Zemuron 100 MG/10 ML ONE (11:50)
[2020-04-10] MEDS ORDERED: Decadron 4 MG INJ ONE (11:50)
[2020-04-10] MEDS ORDERED: BRIDION 200MG/2ML IV ONE (11:50)
[2020-04-10] MEDS ORDERED: Versed 2 MG/2 ML Injection ONE (11:51)
[2020-04-10] MEDS ORDERED: Lactated Ringers 1,000 ML IV SCH (12:30)
[2020-04-10] MEDS ORDERED: LOPRESSOR 5 MG/5 ML INJECTION IV ONE (13:06)
[2020-04-10] MEDS ORDERED: CLINDAMYCIN-D5W 900 MG/50 ML*** 900 MG/50 ML BAG IV ONE (13:29)
[2020-04-10] MEDS ORDERED: DILAUDID 2 MG INJECTION ONE (13:43)
[2020-04-10] MEDS ORDERED: Phenergan 25 MG INJ ONE (13:43)
--- NOTE | 2020-04-10 14:28 | XRAY ---
Indication: Pleural effusion. Comparison: November 11, 2014. Portable chest remains clear. Heart is not enlarged. Bony thorax intact. No new/acute findings.
[2020-04-10] MEDS: NICODERM CQ 14 MG TOP SCH (15:05)
[2020-04-10] MEDS: Levofloxacin 500MG/100ML D5W 500 MG/100 ML BAG IV SCH (15:05)
[2020-04-10] MEDS: NORCO 5/325 MG PO PRN (16:16)
[2020-04-10] MEDS: Compazine 10 MG/2 ML IV PRN (18:54)
[2020-04-10] MEDS ORDERED: MORPHINE SULFATE 4 MG INJ IM ONE (20:00)
[2020-04-10] MEDS: Morphine PCA 1 MG/ML 30 ML IV PRN (20:08)
[2020-04-11] MEDS: Compazine 10 MG/2 ML IV PRN ×2 (02:20→12:52)
[2020-04-11] MEDS: Sodium Chloride 0.9% 1000 ML 1,000 ML IV SCH ×2 (02:20→15:21)
[2020-04-11 05:03] LABS: Absolute Neutrophil Ct (ANC) 16.11 (1.4-6.9); Basophil (Absolute #) 0 (0-0.4); Eosinophil % 0.1 % (0.00-5.0); Eosinophil (Absolute #) 0.02 (0-0.5); Hemoglobin 14.1 gm/dl (12.0-16.0); Lymphocytes % 12.6 % (24.0-44.0); Mean Cell Volume 92.3 fl (78-100); Mean Corpuscular Hgb Concent. 33.6 g/dl (32-36); Mean Platelet Volume 9.2 fl (7.5-11.0); Monocyte (Absolute #) 1.14 (0.0-1.3); Monocytes % 5.8 % (0.0-12.0); Neutrophil % 81.5 % (36.0-66.0); Platelet Count 313 K/mm3 (150-450); Red Blood Count 4.55 M/mm3 (4.1-5.4); White Blood Count 19.8 K/mm3 (4.0-10.5)
[2020-04-11 05:20] LABS: ALBUMIN 3.7 g/dL (3.5-5.0); ALKALINE PHOSPHATASE 82 U/L (38-126); ANION GAP 11.3 MEQ/L (5-15); BLOOD UREA NITROGEN 4 mg/dL (7-17); CHLORIDE 105 mmol/L (98-107); Calcium 8.4 mg/dL (8.4-10.2); Carbon Dioxide 21 mmol/L (22-30); Creatinine 1 0.57 mg/dL (0.52-1.04); Glucose 101 mg/dL (74-106); Potassium 3.4 mmol/L (3.5-5.1); SGOT/AST 28 U/L (14-36); SGPT/ALT 16 U/L (0-35); SODIUM 134 mmol/L (137-145); Total Protein 6.7 g/dL (6.3-8.2)
[2020-04-11] MEDS: FLAGYL 500 MG IVPB 500 MG/100 ML BAG IV SCH ×4 (06:05→23:20)
--- NOTE | 2020-04-11 08:45 | PCM.NOTE ---
Date and Time: 04/11/20 0840 Subjective Assessment: Pt really wants to discharge to home. However, she vomited everything she ate yesterday. Did get up and walk some yesterday. She is still using pain pump. WBC 19,000 this morning. - Review of Systems Constitutional: No Fever Abdominal/Gastrointestinal: Abdominal Pain, Vomiting Objective Exam General Appearance: no apparent distress, alert Neurologic Exam: oriented x 3, cooperative Skin Exam: diaphoresis, No rash Wound Assessment: Skin/Wound Assessment Wound/Incision Assessment Start: 04/09/20 20:00 Text: Status: Active Freq: Q4H Protocol: Document 04/11/20 04:00 ST (Rec: 04/11/20 05:05 ST [id number]) Wound/Incision Assessment Abdomen Wound Assessment Shift Assessment Wound Type Incision Wound Stage Non Pressure Wound Dressing Status Dry & Intact Drainage Amount None General Appearance Clean/Dry Wound Photo Photo Taken No Neck Exam: normal inspection Respiratory Exam: normal breath sounds, lungs clear, No crackles/rales, No rhonchi, No wheezing Cardiovascular Exam: regular rate/rhythm, normal heart sounds, No murmur Gastrointestinal/Abdomen Exam: soft, tenderness (throughout), No normal bowel sounds (hypoactive), No distention, No mass, No guarding, No rebound Extremity Exam: No pedal edema, No swelling Back Exam: normal inspection, No rash OBJECTIVE DATA Vital Signs: Vital Signs - 24 hr Temp Pulse Resp BP Pulse Ox 04/11/20 07:32 98.9 F 66 14 137/67 95 04/11/20 06:12 98 04/11/20 04:08 98 04/11/20 04:00 16 04/11/20 03:29 98.9 F 73 24 174/81 98 04/11/20 00:08 96 04/11/20 00:02 99 F 62 18 107/57 96 04/11/20 00:00 18 04/10/20 20:08 96 04/10/20 20:00 32 H 04/10/20 19:43 55 L 163/95 04/10/20 18:00 98.4 F 66 32 H 171/92 98 04/10/20 17:07 98.5 F 64 16 162/88 97 04/10/20 14:50 63 16 116/61 92 L 04/10/20 14:35 99.1 F 62 16 124/81 96 04/10/20 12:00 98.9 F 74 16 140/77 97 04/10/20 11:48 98.9 F 74 16 140/77 97 Pain Assessment - Last Documented Pain Intensity 10 Pain Scale Used 0-10 Pain Scale Intake and Output: Intake & Output 04/08/20 04/09/20 04/10/20 04/11/20 11:59 11:59 11:59 11:59 Intake Total 3242 4739 Output Total 1600 2600 Balance 1642 2139 Weight 81.102 kg 81.102 kg 81.102 kg Lab Results: Lab Results-Last 24 Hours 04/11/20 04/11/20 Range/Units 04:47 04:47 WBC 19.8 H (4.0-10.5) K/mm3 RBC 4.55 (4.1-5.4) M/mm3 Hgb 14.1 (12.0-16.0) gm/dl Hct 42.0 (35-47) % MCV 92.3 (78-100) fl MCH 31.0 (26-32) pg MCHC 33.6 (32-36) g/dl RDW 12.0 (11.5-14.0) % Plt Count 313 (150-450) K/mm3 MPV 9.2 (7.5-11.0) fl Gran % 81.5 H (36.0-66.0) % Eos # (Auto) 0.02 (0-0.5) Absolute Lymphs (auto) 2.50 (1.0-4.6) Absolute Monos (auto) 1.14 (0.0-1.3) Lymphocytes % 12.6 L (24.0-44.0) % Monocytes % 5.8 (0.0-12.0) % Eosinophils % 0.1 (0.00-5.0) % Basophils % 0.0 (0.0-0.4) % Absolute Granulocytes 16.11 H (1.4-6.9) Basophils # 0 (0-0.4) Sodium 134 L (137-145) mmol/L Potassium 3.4 L (3.5-5.1) mmol/L Chloride 105 (98-107) mmol/L Carbon Dioxide 21 L (22-30) mmol/L Anion Gap 11.3 (5-15) MEQ/L BUN 4 L (7-17) mg/dL Creatinine 0.57 (0.52-1.04) mg/dL Estimated GFR > 60.0 ML/MIN Glucose 101 (74-106) mg/dL Calcium 8.4 (8.4-10.2) mg/dL Total Bilirubin 0.70 (0.2-1.3) mg/dL AST 28 (14-36) U/L ALT 16 (0-35) U/L Alkaline Phosphatase 82 (38-126) U/L Serum Total Protein 6.7 (6.3-8.2) g/dL Albumin 3.7 (3.5-5.0) g/dL Radiology Exams: Radiology Procedures Category Date Time Status CHEST 1 VIEW (PORTABLE) Routine Exams 04/10/20 14:01 Completed GALLBLADDER [US] Routine Exams 04/10/20 07:00 Completed Assessment/Plan (1) S/P cholecystectomy Current Visit: Yes Status: Acute Assessment & Plan: POD #1. Needs to be asif po well, have po pain meds, prior to d/c home. She does not appear to be ready today. Code(s): Z90.49 - ACQUIRED ABSENCE OF OTHER SPECIFIED PARTS OF DIGESTIVE TRACT (2) Pleural effusion Current Visit: Yes Status: Acute Assessment & Plan: recheck with cxr. Code(s): J90 - PLEURAL EFFUSION, NOT ELSEWHERE CLASSIFIED (3) UTI (urinary tract infection) Current Visit: Yes Status: Acute Qualifiers: Urinary tract infection type: acute cystitis Hematuria presence: without hematuria Qualified Code(s): N30.00 - Acute cystitis without hematuria Assessment & Plan: on levaquin day #3 and flagyl day #2 Code(s): N39.0 - URINARY TRACT INFECTION, SITE NOT SPECIFIED (4) Leukocytosis Current Visit: Yes Status: Acute Qualifiers: Leukocytosis type: unspecified Qualified Code(s): D72.829 - Elevated white blood cell count, unspecified Assessment & Plan: 19,000 today, rechecking this evening and in a.m. Code(s): D72.829 - ELEVATED WHITE BLOOD CELL COUNT, UNSPECIFIED
--- NOTE | 2020-04-11 09:02 | CONS ---
CONSULT DATE: 04/10/2020 REASON FOR CONSULT: Right upper quadrant abdominal pain. HISTORY: The patient is a 30 year-old female who previously had been evaluated for biliary dyskinesia. Around one year ago she started having symptoms of right upper quadrant pain postprandial in nature that had become increasingly more frequent. She had been evaluated in the office with a positive HIDA scan with decreased ejection fraction, negative ultrasound by one of my partners. She was set up for laparoscopic cholecystectomy but then was talked out of it by one of her friends. In recent time the pain had become more frequent in nature and is now bothering her at least weekly and she had constant right upper quadrant abdominal pain since Friday five days ago. She had associated nausea, occasional emesis, nonbloody, nonbilious. Otherwise the review of systems is negative. MEDICATIONS: Omeprazole daily. ALLERGIES: KEFLEX (HIVES). 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 PAST SURGICAL HISTORY: Knee scoped x2. Tonsils and adenoids. Ear tubes. LEEP. FAMILY HISTORY: No bleeding. No cancer. SOCIAL HISTORY: Pack per day smoker. No illicits. Nondaily drinker. REVIEW OF SYSTEMS: Twelve point review of systems negative. PHYSICAL EXAMINATION: Afebrile. Vital signs normal. MCAP (mobile clinical access portal). HEENT: Sclera nonicteric, extraocular motion intact. NECK: Symmetric. No mass. CHEST: Nonlabored respirations. HEART: Regular rate and rhythm. ABDOMEN: Nondistended, soft, tender in the right upper quadrant without rebound or guarding. No Reyes sign. EXTREMITIES: No peripheral edema. LAB DATA AND TESTS: CBC, BMP, hepatic function and lipase reviewed. Mild leukocytosis. Liver function tests all normal. Ultrasound reviewed and no stones or wall thickening with a normal common bile duct. There is a small right pleural effusion. Prior HIDA scan with reduced ejection fraction. ASSESSMENT: A 30 year-old female with right upper quadrant pain most consistent with chronic cholecystitis, biliary dyskinesia. She does have a reported history of fatty liver disease. However, she has normal liver function tests. She has a prior positive HIDA scan. Ultrasound does not show any evidence of acute cholecystitis. She is mild to moderately tender in the right upper quadrant. PLAN: I recommend cholecystectomy. Risks, benefits, alternatives discussed with the patient and will plan for cholecystectomy with probably liver biopsy.
[2020-04-11] MEDS: Protonix 40MG Tablet PO SCH (09:12)
--- NOTE | 2020-04-11 09:26 | XRAY ---
Indication: Pleural effusion on recent gallbladder. Comparison: One day earlier. Portable chest now rotated again demonstrating normal heart, lungs, and bony thorax.
[2020-04-11] MEDS ORDERED: NICODERM CQ 14 MG TOP SCH (10:00)
--- NOTE | 2020-04-11 10:09 | OP ---
SURGERY DATE/TIME: 04/10/2020 1235 PREOPERATIVE DIAGNOSES: 1) Chronic cholecystitis. 2) Hepatic steatosis. POSTOPERATIVE DIAGNOSES: 1) Chronic cholecystitis. 2) Hepatic steatosis. PROCEDURE: Laparoscopic cholecystectomy with liver wedge biopsy. SURGEON: Johnny Hardy M.D. ANESTHESIA: General. ESTIMATED BLOOD LOSS: 100. CONDITION: Patient condition stable. COMPLICATIONS: None. SPECIMENS: 1) Gallbladder. 2) Liver wedge biopsy. HISTORY: The patient is a 30 year-old female who has had some right upper quadrant abdominal pain on and off for about a year. She had previous HIDA scan that was positive. This has been more bothersome more frequently with her. Around a year ago she was diagnosed with hepatic steatosis and nonviral hepatitis. She was set up for cholecystectomy but then was talked out of it by a friend. She has had increasing symptoms more recently. She was admitted to the hospital with five day history of right upper quadrant abdominal pain with nausea. The pain is worse with any p.o. intake. Laboratory studies show normal liver function tests, lipase. Ultrasound showed no acute cholecystitis. Discussion was had with the patient and family. Risk of infection, bleeding, injury to nearby structure, common bile duct injury, hernia as well as nontherapeutic procedure was discussed. She elected to proceed. FINDINGS: Some omental adhesions to the gallbladder consistent with chronic cholecystitis. Critical view easily obtained. Liver appeared somewhat steatotic and the liver biopsy was taken from the right liver away from the gallbladder. DESCRIPTION OF PROCEDURE: The patient was brought to the operating room. General anesthesia was induced. She was placed supine with arms out. SCD's applied on. She was routinely prepped and draped. Time out was performed. She had received preoperative antibiotic. Veress needle was inserted left upper quadrant. Opening pressure was 4. Pneumoperitoneum was established. A 5 mm Optiview trocar was placed in left upper quadrant. Abdomen was surveyed. There was no injury from Veress insertion. The 11 mm trocar was placed infraumbilically. Two additional 5 mm trocars were placed in the right upper quadrant. The gallbladder was attempted to be retracted. There were omental adhesions to the gallbladder. These were taken down with hook cautery. Gallbladder was then retracted. Cystic duct and cystic artery were dissected out with a combination of L-hook cautery, [place] and blunt dissection. There was clear anatomy. Critical view was obtained. The cystic duct was taken three down and one up with a 5 mm metal clip blacksmith helper. Cystic artery was taken two down and one up with a 5 mm clip blacksmith helper. Both were divided. The gallbladder was taken off the liver bed. A small hole was made in the gallbladder. There was spillage of bile but no spillage of stones this was all suctioned up. Gallbladder placed was placed in specimen bag removed and sent to pathology. Port was inserted. Right upper quadrant was examined. Suctioned, irrigated and the liver was addressed. The liver was somewhat enlarged and steatotic appearing. A wedge biopsy was taken from the right lateral liver away from the gallbladder, this was sent to pathology. The liver was hemostatic with some cautery. The right upper quadrant was re-examined. Clips were in position. There was good hemostasis. The 11 trocar was closed with 0 Vicryl suture passer. Skin was closed with 4-0 Vicryl sutures. Steri-Strips and sterile dressings were applied. All counts were correct. The patient tolerated the procedure well.
[2020-04-11] MEDS: Levofloxacin 500MG/100ML D5W 500 MG/100 ML BAG IV SCH (10:57)
[2020-04-11] MEDS: Morphine PCA 1 MG/ML 30 ML IV PRN (14:09)
[2020-04-11] MEDS: Ativan 0.5 MG PO PRN (16:19)
[2020-04-11] MEDS ORDERED: BENADRYL 50 MG/ML IV ONE (17:41)
[2020-04-11 17:57] LABS: Absolute Neutrophil Ct (ANC) 13.32 (1.4-6.9); BASOPHIL % 0.1 % (0.0-0.4); Basophil (Absolute #) 0.02 (0-0.4); Eosinophil % 1.4 % (0.00-5.0); Eosinophil (Absolute #) 0.25 (0-0.5); Hematocrit 44.3 % (35-47); Hemoglobin 14.8 gm/dl (12.0-16.0); Lymphocyte (Absolute #) 3.39 (1.0-4.6); Lymphocytes % 18.9 % (24.0-44.0); Mean Cell Volume 92.1 fl (78-100); Mean Corpuscular Hemoglobin 30.8 pg (26-32); Mean Corpuscular Hgb Concent. 33.4 g/dl (32-36); Mean Platelet Volume 9.4 fl (7.5-11.0); Monocyte (Absolute #) 0.96 (0.0-1.3); Monocytes % 5.4 % (0.0-12.0); Neutrophil % 74.2 % (36.0-66.0); Platelet Count 338 K/mm3 (150-450); Red Blood Count 4.81 M/mm3 (4.1-5.4); Red Cell Distribution Width 12.2 % (11.5-14.0); White Blood Count 17.9 K/mm3 (4.0-10.5)
[2020-04-11] MEDS: NORCO 5/325 MG PO PRN (20:06)
[2020-04-12] MEDS: NORCO 5/325 MG PO PRN ×2 (01:23→06:58)
[2020-04-12] MEDS: Ativan 0.5 MG PO PRN ×2 (01:23→07:44)
[2020-04-12] MEDS: Sodium Chloride 0.9% 1000 ML 1,000 ML IV SCH (02:39)
[2020-04-12] MEDS: Zofran 4 MG/2 ML VIAL IV PRN (04:52)
[2020-04-12 05:01] LABS: Absolute Neutrophil Ct (ANC) 7.94 (1.4-6.9); BASOPHIL % 0.3 % (0.0-0.4); Basophil (Absolute #) 0.04 (0-0.4); Eosinophil % 2.8 % (0.00-5.0); Eosinophil (Absolute #) 0.32 (0-0.5); Hemoglobin 13.4 gm/dl (12.0-16.0); Lymphocyte (Absolute #) 2.56 (1.0-4.6); Lymphocytes % 22.1 % (24.0-44.0); Mean Cell Volume 93.2 fl (78-100); Mean Corpuscular Hemoglobin 30.5 pg (26-32); Mean Corpuscular Hgb Concent. 32.7 g/dl (32-36); Monocyte (Absolute #) 0.74 (0.0-1.3); Monocytes % 6.4 % (0.0-12.0); Neutrophil % 68.4 % (36.0-66.0); Platelet Count 286 K/mm3 (150-450); Red Cell Distribution Width 12.3 % (11.5-14.0); White Blood Count 11.6 K/mm3 (4.0-10.5)
[2020-04-12 05:24] LABS: ALBUMIN 3.2 g/dL (3.5-5.0); ALKALINE PHOSPHATASE 67 U/L (38-126); BLOOD UREA NITROGEN 5 mg/dL (7-17); CHLORIDE 107 mmol/L (98-107); Calcium 8.3 mg/dL (8.4-10.2); Carbon Dioxide 24 mmol/L (22-30); Creatinine 1 0.62 mg/dL (0.52-1.04); Glucose 89 mg/dL (74-106); Potassium 3.3 mmol/L (3.5-5.1); SGOT/AST 22 U/L (14-36); SGPT/ALT 16 U/L (0-35); SODIUM 137 mmol/L (137-145); Total Protein 5.9 g/dL (6.3-8.2)
[2020-04-12] MEDS: FLAGYL 500 MG IVPB 500 MG/100 ML BAG IV SCH (06:20)
[2020-04-12 07:27] VITALS: BP 119/74; PULSE 69; O2SAT 97
--- NOTE | 2020-04-12 09:22 | PCM.DS ---
Discharge Summary Date of Admission: 04/09/20 12:40 Admitting Physician: JUSTINE GUSTAFSON Primary Care Provider: SAHRA GALVEZ CHINO Allergies Allergies cephalexin monohydrate [From Keflex] Allergy (Mild, Verified 04/09/20 10:54) [facility] Summary - Hospital Course Hospital Course: patient was admitted with ruq pain and nausea/vomiting. hx biliary dyskinesia, suspected chronic cholecystitis. had surgery on 04/10 and confirmed, had elevated white count and nausea/vomiting postoperatively so kept additional time. asif po intake, pain is controlled and she is doing quite well. - Vitals & Intake/Output Vital Signs: Vital Signs Temperature 98.4 F 04/12/20 07:27 Pulse Rate 69 04/12/20 07:27 Respiratory Rate 18 04/12/20 07:51 Blood Pressure 119/74 04/12/20 07:27 O2 Sat by Pulse Oximetry 97 04/12/20 07:27 Intake & Output: Intake & Output 04/09/20 04/10/20 04/11/20 04/12/20 11:59 11:59 11:59 11:59 Intake Total 3242 4739 2847 Output Total 1600 3500 800 Balance 1642 1239 2047 Weight 81.102 kg 81.102 kg 81.102 kg - Lab Result Diagrams: 04/12/20 04:40 04/12/20 04:40 Lab Results-Last 24 Hrs: Lab Results-Last 24 Hours 04/11/20 04/12/20 04/12/20 Range/Units 17:15 04:40 04:40 WBC 17.9 H 11.6 H (4.0-10.5) K/mm3 RBC 4.81 4.40 (4.1-5.4) M/mm3 Hgb 14.8 13.4 (12.0-16.0) gm/dl Hct 44.3 41.0 (35-47) % MCV 92.1 93.2 (78-100) fl MCH 30.8 30.5 (26-32) pg MCHC 33.4 32.7 (32-36) g/dl RDW 12.2 12.3 (11.5-14.0) % Plt Count 338 286 (150-450) K/mm3 MPV 9.4 9.0 (7.5-11.0) fl Gran % 74.2 H 68.4 H (36.0-66.0) % Eos # (Auto) 0.25 0.32 (0-0.5) Absolute Lymphs (auto) 3.39 2.56 (1.0-4.6) Absolute Monos (auto) 0.96 0.74 (0.0-1.3) Lymphocytes % 18.9 L 22.1 L (24.0-44.0) % Monocytes % 5.4 6.4 (0.0-12.0) % Eosinophils % 1.4 2.8 (0.00-5.0) % Basophils % 0.1 0.3 (0.0-0.4) % Absolute Granulocytes 13.32 H 7.94 H (1.4-6.9) Basophils # 0.02 0.04 (0-0.4) Sodium 137 (137-145) mmol/L Potassium 3.3 L (3.5-5.1) mmol/L Chloride 107 (98-107) mmol/L Carbon Dioxide 24 (22-30) mmol/L Anion Gap 9.0 (5-15) MEQ/L BUN 5 L (7-17) mg/dL Creatinine 0.62 (0.52-1.04) mg/dL Estimated GFR > 60.0 ML/MIN Glucose 89 (74-106) mg/dL Calcium 8.3 L (8.4-10.2) mg/dL Total Bilirubin 0.80 (0.2-1.3) mg/dL AST 22 (14-36) U/L ALT 16 (0-35) U/L Alkaline Phosphatase 67 (38-126) U/L Serum Total Protein 5.9 L (6.3-8.2) g/dL Albumin 3.2 L (3.5-5.0) g/dL Micro Results-Entire Visit: Microbiology 04/09/20 11:27 Urine Culture - Final Clean Catch Midstream <10K NORMAL SKIN DEMAR PROBABLE SKIN CONTAMINANT - Radiology Exams Ordered Rad Exams-Entire Visit: Radiology Procedures Category Date Time Status CHEST 1 VIEW (PORTABLE) Routine Exams 04/10/20 14:01 Completed CHEST 1 VIEW (PORTABLE) Routine Exams 04/11/20 08:40 Completed - Procedures and Test Procedures and Tests throughout Hospitalization: Therapy Orders & Screens 04/09/20 15:40 Smoking Cessation Education ONCE Comment: Diagnosis: chronic cholecystitis Smoking Status: Current every day smoker How long have you smoked: 12 years Have you smoked in the past 12 months: Yes Approximately how many cigarettes per day: 3/4 pack per day Do you dip or chew tobacco: No Discharge Exam General Appearance: no apparent distress, alert Respiratory Exam: normal breath sounds, lungs clear, No respiratory distress Cardiovascular Exam: regular rate/rhythm, normal heart sounds Gastrointestinal/Abdomen Exam: soft, No tenderness, No mass Wound Assessment: Skin/Wound Assessment Wound/Incision Assessment Start: 04/09/20 20:00 Text: Status: Active Freq: Q4H Protocol: Document 04/12/20 07:52 BE (Rec: 04/12/20 07:55 BE [id number]) Wound/Incision Assessment Abdomen Wound Assessment Shift Assessment Wound Type Incision Wound Stage Non Pressure Wound Dressing Status Dry & Intact Drainage Amount None General Appearance Clean/Dry Surrounding Tissue [place] Primary Dressing Absorbant Pad Comment skin intact around incisions Final Diagnosis/Problem List - Final Discharge Diagnosis/Problem (1) Chronic cholecystitis Current Visit: Yes Status: Acute Assessment & Plan: home on po levaquin with elevated white count etc, improving Code(s): K81.1 - CHRONIC CHOLECYSTITIS (2) RUQ abdominal pain Current Visit: Yes Status: Acute Code(s): R10.11 - RIGHT UPPER QUADRANT PAIN (3) UTI (urinary tract infection) Current Visit: Yes Status: Acute Assessment & Plan: culture negative Code(s): N39.0 - URINARY TRACT INFECTION, SITE NOT SPECIFIED - Discharge Disposition: Home, Self-Care Condition: Good Prescriptions: New Levofloxacin [Levaquin] 500 mg PO DAILY #5 tablet Continue Omeprazole 20 mg PO DAILY Follow up with: SAHRA GALVEZ MD [Primary Care Provider] - 1 Week KIERRA MAGANA MD [ASSOCIATE STAFF] - 1 Week
[2020-04-12] MEDS: Morphine PCA 1 MG/ML 30 ML IV PRN (10:36)
--- NOTE | 2020-04-13 07:40 | CONS ---
CONSULT DATE: 04/09/2020 REASON FOR CONSULT: Medical consultation for possible gallbladder disease. HISTORY: The patient has been seen before in the past and was felt to have gallbladder dyskinesia. She now presents with severe nausea and severe abdominal pain radiating to the back. She was hospitalized acutely. Her white count is mildly elevated. Her bilirubin is normal. On her abdominal examination she is tender in the epigastrium right upper quadrant. Jeramy discussion with her. She would like to proceed with intervention while she is here. The procedure of laparoscopic cholecystectomy was discussed in detail probably will be performed on Friday.
== END 2020-04-12 10:10 | disposition home or self-care (01) ==
LOC: ED 10:45 → MED SURG 12:40
PROVIDERS: ADMIT Family Medicine; ATTEND Family Medicine
DX: K81.1 Chronic cholecystitis (principal); K76.0 Fatty (change of) liver, not elsewhere classified; N39.0 Urinary tract infection, site not specified; R10.11 Right upper quadrant pain; J90 Pleural effusion, not elsewhere classified; D72.829 Elevated white blood cell count, unspecified; Z79.899 Other long term (current) drug therapy
CPT/HCPCS: 36415; 47100; 47562; 71045; 76705; 80053; 81001; 82150; 83605; 83690; 84703; 85025; 87086; 93268; 96365; 96374; 96375; 99291; G0378; 88304; 88307; 99285; J1100; J1170; J1200; J1885; J1956; J2250; J2270; J2405; J2550; J2704; J3010; A9270-GY

== ENCOUNTER 2020-04-28 13:32 | Emergency (ER) | payer OTHER ==
[2020-04-28] MEDS ORDERED: Hydromorphone 1 mg/ml Ampule IV ONE (14:06)
[2020-04-28] MEDS ORDERED: Sodium Chloride 0.9% 1000 ML 1,000 ML IV STA (14:06)
[2020-04-28] MEDS ORDERED: Reglan 10 MG/2 ML IV ONE (14:06)
[2020-04-28] MEDS ORDERED: TORAdol 30 mg Injection IV ONE (14:06)
[2020-04-28] MEDS ORDERED: PROTONIX 40 MG IV IV ONE ×2 (14:06→14:43)
[2020-04-28] MEDS ORDERED: TORAdol 30 mg Injection ONE (14:43)
[2020-04-28] MEDS ORDERED: Hydromorphone 1 mg/ml Ampule ONE (14:44)
[2020-04-28] MEDS ORDERED: Reglan 10 MG/2 ML ONE (14:44)
[2020-04-28] MEDS ORDERED: Sodium Chloride 0.9% 1000 ML 1,000 ML ONE (14:44)
[2020-04-28 14:48] LABS: Absolute Neutrophil Ct (ANC) 8.85 (1.4-6.9); BASOPHIL % 0.3 % (0.0-0.4); Basophil (Absolute #) 0.04 (0-0.4); Eosinophil % 0.6 % (0.00-5.0); Eosinophil (Absolute #) 0.07 (0-0.5); Hemoglobin 15.6 gm/dl (12.0-16.0); Lymphocytes % 21.2 % (24.0-44.0); Mean Cell Volume 91.3 fl (78-100); Mean Corpuscular Hgb Concent. 33.9 g/dl (32-36); Mean Platelet Volume 9.5 fl (7.5-11.0); Monocytes % 5.7 % (0.0-12.0); Neutrophil % 72.2 % (36.0-66.0); Platelet Count 435 K/mm3 (150-450); Red Blood Count 5.04 M/mm3 (4.1-5.4); Red Cell Distribution Width 12.1 % (11.5-14.0); White Blood Count 12.3 K/mm3 (4.0-10.5)
[2020-04-28 14:55] LABS: INR 1.17 (0.8-3.0); PROTIME 13.2 SECONDS (9.95-12.35)
[2020-04-28 14:58] LABS: ALBUMIN 4.7 g/dL (3.5-5.0); ALKALINE PHOSPHATASE 104 U/L (38-126); AMYLASE 79 U/L (30-110); ANION GAP 13.4 MEQ/L (5-15); BLOOD UREA NITROGEN 6 mg/dL (7-17); CHLORIDE 104 mmol/L (98-107); Calcium 9.6 mg/dL (8.4-10.2); Carbon Dioxide 22 mmol/L (22-30); Creatinine 1 0.59 mg/dL (0.52-1.04); EST GLOMERULAR FILTRATION RATE > 60.0 ML/MIN; Glucose 102 mg/dL (74-106); LIPASE 58 U/L (23-300); Potassium 3.9 mmol/L (3.5-5.1); SGOT/AST 19 U/L (14-36); SGPT/ALT 14 U/L (0-35); SODIUM 136 mmol/L (137-145); Total Protein 8.3 g/dL (6.3-8.2)
[2020-04-28 16:19] LABS: Appearance SLIGHTLY CLOUDY (CLEAR); Bilirubin NEGATIVE (NEGATIVE); Blood NEGATIVE Ery/ul (0-5); Epithelial Cells RARE /HPF (FEW); Glucose NEGATIVE (NEGATIVE); Ketones TRACE (NEGATIVE); Leukocyte Esterase NEGATIVE (NEGATIVE); Mucus MODERATE /HPF (NEGATIVE); Nitrite NEGATIVE (NEGATIVE); Protein,Urine Dip 100 (Negative); Specific Gravity 1.025 (1.005-1.025); Urobilinogen 2 mg/dL (0-1)
--- NOTE | 2020-04-28 17:39 | ERPHSYRPT ---
- History of Present Illness Time Seen by Provider: 04/28/20 14:00 Patient Subjective Stated Complaint: Pt states "I had my gall bladder out in the beggining of the month and now I am vomiting. I cannot keep anything down." Triage Nursing Assessment: pt presented alert and oriented X 3, skin pwd Pt ambulates iwth an upright steady gait, able to speak in clear full sentences. Pt nauseated and dry heaving. Physician History: Garry is a 30-year-old female who had her gallbladder out approximately 3 weeks ago who last night started with nausea and vomiting and was unable to retain any feedings. Zofran which she had been given was no help she did have epigastric pain that seem to go through the back she denied fever chills or sweats she has had some diarrhea as well. Timing/Duration: yesterday Activities at Onset: none Quality: cramping, throbbing Abdominal Pain Onset Location: epigastric Pain Radiation: back Severity of Pain-Max: moderate Severity of Pain-Current: moderate Modifying Factors: Improves With: eating Associated Symptoms: nausea, vomiting Allergies/Adverse Reactions: cephalexin monohydrate [From Keflex] Allergy (Mild, Verified 04/09/20 10:54) Hives Home Medications: Omeprazole 20 mg PO DAILY 05/22/19 [History] Hx Tetanus, Diphtheria Vaccination/Date Given: No Hx Influenza Vaccination/Date Given: Yes Hx Pneumococcal Vaccination/Date Given: No Immunizations Up to Date: Yes Travel Risk - International Travel Have you traveled outside of the country in past 3 weeks: No - Coronavirus Screening Close contact with a COVID-19 positive Pt in past 14-21 Days: No - Review of Systems Constitutional: No Fever, No Chills Eyes: No Symptoms Ears, Nose, & Throat: No Symptoms Respiratory: No Cough, No Dyspnea Cardiac: No Chest Pain, No Edema, No Syncope Abdominal/Gastrointestinal: Abdominal Pain, Nausea, Vomiting, Diarrhea Genitourinary Symptoms: No Dysuria Musculoskeletal: No Back Pain, No Neck Pain Skin: No Rash Neurological: No Dizziness, No Focal Weakness, No Sensory Changes Psychological: No Symptoms Endocrine: No Symptoms All Other Systems: Reviewed and Negative - Past Medical History Pertinent Past Medical History: Yes Neurological History: No Pertinent History ENT History: Other Cardiac History: No Pertinent History Respiratory History: No Pertinent History Endocrine Medical History: Liver Disease Musculoskeletal History: No Pertinent History GI Medical History: No Pertinent History History: Other Psycho-Social History: Anxiety, Depression Female Reproductive Disorders: No Pertinent History Other Medical History: chronic back pain secondary to degenerative disk disease. smoker and vaping. wears glasses, fatty liver, UTI - Past Surgical History Past Surgical History: Yes Neuro Surgical History: No Pertinent History Cardiac: No Pertinent History Respiratory: No Pertinent History Gastrointestinal: No Pertinent History Genitourinary: No Pertinent History Musculoskeletal: Orthopedic Surgery Female Surgical History: No Pertinent History Other Surgical History: knee - tonsils - adenoids - tubes in ears. nicole - Social History Smoking Status: Current every day smoker How long have you smoked: years Exposure to second hand smoke: Yes Drug Use: none Patient Lives Alone: No - Female History Hx Last Menstrual Period: mirena Hx Now: No (uses mirena) - Nursing Vital Signs Nursing Vital Signs: Initial Vital Signs Temperature 99.1 F 04/28/20 13:46 Pulse Rate 71 04/28/20 13:46 Respiratory Rate 24 04/28/20 13:46 Blood Pressure 129/98 04/28/20 13:46 O2 Sat by Pulse Oximetry 98 04/28/20 13:46 Pain Scale Pain Intensity 2 - Physical Exam General Appearance: moderate distress, alert Eye Exam: PERRL/EOMI, eyes nml inspection Ears, Nose, Throat Exam: normal ENT inspection, pharynx normal, moist mucous m embranes Neck Exam: normal inspection, non-tender, supple, full range of motion Respiratory Exam: normal breath sounds, lungs clear, No respiratory distress Cardiovascular Exam: regular rate/rhythm, normal heart sounds Gastrointestinal/Abdomen Exam: tenderness, No mass Back Exam: normal inspection, normal range of motion, No CVA tenderness, No vertebral tenderness Extremity Exam: normal inspection, normal range of motion, pelvis stable Neurologic Exam: alert, oriented x 3, cooperative, normal mood/affect, nml cerebellar function, sensation nml, No motor deficits Skin Exam: normal color, warm, dry SpO2: 97 - Course Nursing assessment & vital signs reviewed: Yes - CT Exams Abdomen/Pelvis CT Interpretation: Other (Impression of the CT of the abdomen and pelvis showed surgical absence of the gallbladder no biliary distention no inflammation in the region of the gallbladder fossa and no evidence of bili [place] or other complication. 2 would be apparent gastric mural thickening probably at least due in part to non) Ordered Tests: Active Orders 24 hr Category Date Time Status ABDOMEN AND PELVIS W CONTRAST [CT] Stat Exams 04/28/20 14:06 Taken AMYLASE Stat Lab 04/28/20 14:40 Completed CBC W DIFF Stat Lab 04/28/20 14:06 Completed CMP Stat Lab 04/28/20 14:40 Completed HCG,QUALITATIVE URINE Stat Lab 04/28/20 15:54 Completed LIPASE Stat Lab 04/28/20 14:40 Completed Lactic Acid Stat Lab 04/28/20 14:40 Completed PROTIME WITH INR Stat Lab 04/28/20 14:40 Completed UA W/RFX UR CULTURE Stat Lab 04/28/20 15:54 Completed Medication Summary Discontinued Medications Generic Name Dose Route Start Last Admin Trade Name Freq PRN Reason Stop Dose Admin Hydromorphone HCl 1 mg 04/28/20 14:06 04/28/20 14:46 Hydromorphone 1 Mg/Ml Ampule IV 04/28/20 14:07 1 mg STAT ONE Administration Hydromorphone HCl Confirm 04/28/20 14:44 Hydromorphone 1 Mg/Ml Ampule Administered 04/28/20 14:45 Dose 1 mg .ROUTE .STK-MED ONE Sodium Chloride 1,000 mls @ 999 mls/hr 04/28/20 14:06 04/28/20 16:16 Sodium Chloride 0.9% 1000 Ml IV 04/28/20 15:06 Infused .Q1H1M STA Infusion Sodium Chloride Confirm 04/28/20 14:44 Sodium Chloride 0.9% 1000 Ml Administered 04/28/20 14:45 Dose 1,000 mls @ ud .ROUTE .STK-MED ONE Ketorolac Tromethamine 30 mg 04/28/20 14:06 04/28/20 14:47 Toradol 30 Mg Injection IV 04/28/20 14:07 30 mg STAT ONE Administration Ketorolac Tromethamine Confirm 04/28/20 14:43 Toradol 30 Mg Injection Administered 04/28/20 14:44 Dose 30 mg .ROUTE .STK-MED ONE Metoclopramide HCl 10 mg 04/28/20 14:06 04/28/20 14:47 Reglan 10 Mg/2 Ml IV 04/28/20 14:07 10 mg STAT ONE Administration Metoclopramide HCl Confirm 04/28/20 14:44 Reglan 10 Mg/2 Ml Administered 04/28/20 14:45 Dose 10 mg .ROUTE .K-MED ONE Pantoprazole Sodium 40 mg 04/28/20 14:06 04/28/20 14:47 Protonix 40 Mg Iv IV 04/28/20 14:07 40 mg STAT ONE Administration Pantoprazole Sodium Confirm 04/28/20 14:43 Protonix 40 Mg Iv Administered 04/28/20 14:44 Dose 40 mg IV .K-MED ONE Lab/Rad Data: Laboratory Result Diagrams 04/28/20 14:06 04/28/20 14:40 Laboratory Results 04/28/20 04/28/20 04/28/20 Range/Units 15:54 15:54 14:40 WBC (4.0-10.5) K/mm3 RBC (4.1-5.4) M/mm3 Hgb (12.0-16.0) gm/dl Hct (35-47) % MCV (78-100) fl MCH (26-32) pg MCHC (32-36) g/dl RDW (11.5-14.0) % Plt Count (150-450) K/mm3 MPV (7.5-11.0) fl Gran % (36.0-66.0) % Eos # (Auto) (0-0.5) Absolute Lymphs (auto) (1.0-4.6) Absolute Monos (auto) (0.0-1.3) Lymphocytes % (24.0-44.0) % Monocytes % (0.0-12.0) % Eosinophils % (0.00-5.0) % Basophils % (0.0-0.4) % Absolute Granulocytes (1.4-6.9) Basophils # (0-0.4) PT 13.2 H (9.95-12.35) SECONDS INR 1.17 (0.8-3.0) Sodium (137-145) mmol/L Potassium (3.5-5.1) mmol/L Chloride (98-107) mmol/L Carbon Dioxide (22-30) mmol/L Anion Gap (5-15) MEQ/L BUN (7-17) mg/dL Creatinine (0.52-1.04) mg/dL Estimated GFR ML/MIN Glucose (74-106) mg/dL Lactic Acid (0.4-2.0) Calcium (8.4-10.2) mg/dL Total Bilirubin (0.2-1.3) mg/dL AST (14-36) U/L ALT (0-35) U/L Alkaline Phosphatase (38-126) U/L Serum Total Protein (6.3-8.2) g/dL Albumin (3.5-5.0) g/dL Amylase (30-110) U/L Lipase (23-300) U/L Urine Color CHASE (YELLOW) Urine Appearance SLIGHTLY CLOUDY (CLEAR) Urine pH 9.0 (5-6) Ur Specific [place] 1.025 (1.005-1.025) Urine Protein 100 (Negative) Urine Ketones TRACE (NEGATIVE) Urine Blood NEGATIVE (0-5) Ajay/ul Urine Nitrite NEGATIVE (NEGATIVE) Urine Bilirubin NEGATIVE (NEGATIVE) Urine Urobilinogen 2 (0-1) mg/dL Ur Leukocyte Esterase NEGATIVE (NEGATIVE) Urine WBC (Auto) NONE (0-5) /HPF Urine RBC (Auto) 3-5 (0-2) /HPF U Epithel Cells (Auto) RARE (FEW) /HPF Urine Bacteria (Auto) NONE (NEGATIVE) /HPF Urine Mucus (Auto) MODERATE (NEGATIVE) /HPF Urine Culture Reflexed NO (NO) Urine Glucose NEGATIVE (NEGATIVE) mg/dL Urine HCG, Qual NEGATIVE (Negative) 04/28/20 04/28/20 04/28/20 Range/Units 14:40 14:40 14:06 WBC 12.3 H (4.0-10.5) K/mm3 RBC 5.04 (4.1-5.4) M/mm3 Hgb 15.6 (12.0-16.0) gm/dl Hct 46.0 (35-47) % MCV 91.3 (78-100) fl MCH 31.0 (26-32) pg MCHC 33.9 (32-36) g/dl RDW 12.1 (11.5-14.0) % Plt Count 435 (150-450) K/mm3 MPV 9.5 (7.5-11.0) fl Gran % 72.2 H (36.0-66.0) % Eos # (Auto) 0.07 (0-0.5) Absolute Lymphs (auto) 2.60 (1.0-4.6) Absolute Monos (auto) 0.70 (0.0-1.3) Lymphocytes % 21.2 L (24.0-44.0) % Monocytes % 5.7 (0.0-12.0) % Eosinophils % 0.6 (0.00-5.0) % Basophils % 0.3 (0.0-0.4) % Absolute Granulocytes 8.85 H (1.4-6.9) Basophils # 0.04 (0-0.4) PT (9.95-12.35) SECONDS INR (0.8-3.0) Sodium 136 L (137-145) mmol/L Potassium 3.9 (3.5-5.1) mmol/L Chloride 104 (98-107) mmol/L Carbon Dioxide 22 (22-30) mmol/L Anion Gap 13.4 (5-15) MEQ/L BUN 6 L (7-17) mg/dL Creatinine 0.59 (0.52-1.04) mg/dL Estimated GFR > 60.0 ML/MIN Glucose 102 (74-106) mg/dL Lactic Acid 1.3 (0.4-2.0) Calcium 9.6 (8.4-10.2) mg/dL Total Bilirubin 0.90 (0.2-1.3) mg/dL AST 19 (14-36) U/L ALT 14 (0-35) U/L Alkaline Phosphatase 104 (38-126) U/L Serum Total Protein 8.3 H (6.3-8.2) g/dL Albumin 4.7 (3.5-5.0) g/dL Amylase 79 (30-110) U/L Lipase 58 (23-300) U/L Urine Color (YELLOW) Urine Appearance (CLEAR) Urine pH (5-6) Ur Specific [place] (1.005-1.025) Urine Protein (Negative) Urine Ketones (NEGATIVE) Urine Blood (0-5) Ajay/ul Urine Nitrite (NEGATIVE) Urine Bilirubin (NEGATIVE) Urine Urobilinogen (0-1) mg/dL Ur Leukocyte Esterase (NEGATIVE) Urine WBC (Auto) (0-5) /HPF Urine RBC (Auto) (0-2) /HPF U Epithel Cells (Auto) (FEW) /HPF Urine Bacteria (Auto) (NEGATIVE) /HPF Urine Mucus (Auto) (NEGATIVE) /HPF Urine Culture Reflexed (NO) Urine Glucose (NEGATIVE) mg/dL Urine HCG, Qual (Negative) - Progress Progress: improved - Departure Departure Disposition: Home Clinical Impression: Gastritis Condition: Stable Critical Care Time: No Referrals: SAHRA GALVEZ MD [Primary Care Provider] - Prescriptions: PANTOPRAZOLE 40 mg Tablet [Protonix 40MG Tablet] 40 mg PO QAM 30 Days #30 tab Metoclopramide HCl [Reglan] 5 mg PO Q6H 5 Days #20 tablet
[2020-04-28 18:13] VITALS: BP 111/63; PULSE 62; O2SAT 98
--- NOTE | 2020-04-28 22:37 | XRAY ---
Indication: Abdomen pain and vomiting. Multiple contiguous axial images obtained through the abdomen and pelvis using 80 cc Isovue 370 contrast only. Comparison: None Lung bases are clear with incidental tiny left lower lobe calcified granuloma. Heart is not enlarged. Noncontrasted stomach and bowel loops appear nonobstructed. Normal appendix. Previous cholecystectomy. No free fluid/air. Uterus demonstrates IUD in situ. Remaining liver, pancreas, spleen, adrenal glands, kidneys, ureters, bladder, uterus, and aorta appear unremarkable. No pathologic retroperitoneal lymphadenopathy. Osseous structures intact. Impression: Incidental left lung base calcified granuloma and IUD in situ. Remaining CT abdomen/pelvis with contrast exam is negative. Comment: Preliminary interpretation was made by [facility]. No critical discrepancy.
== END 2020-04-28 18:12 | disposition home or self-care (01) ==
LOC: ED 13:32
DX: K29.70 Gastritis, unspecified, without bleeding (principal)
CPT/HCPCS: 36000; 36415; 74177; 80053; 81001; 82150; 83605; 83690; 84703; 85025; 85610; 96360; 96374; 96375; 99284; J1170; J1885

== ENCOUNTER 2020-04-29 10:04 | Emergency (ER) | payer OTHER ==
[2020-04-29] MEDS ORDERED: MORPHINE SULFATE 4 MG INJ IV ONE (10:24)
[2020-04-29] MEDS ORDERED: Sodium Chloride 0.9% 1000 ML 1,000 ML IV STA (10:24)
[2020-04-29] MEDS ORDERED: Zofran 4 MG/2 ML VIAL IV ONE (10:24)
[2020-04-29] MEDS ORDERED: Pepcid 20 MG VIAL IV ONE ×2 (10:24→10:27)
--- NOTE | 2020-04-29 10:26 | ERPHSYRPT ---
- History of Present Illness Time Seen by Provider: 04/29/20 10:15 Historian: patient Exam Limitations: no limitations Patient Subjective Stated Complaint: nausea/vomiting Triage Nursing Assessment: pt to ED for NVD x 3 days. has had diarrhea since gallbladder removed earlier this month at [facility]. seen here in ED yesterday for same sx, dx with gastritis and dc with reglan and protonix. has taken both 0400 this am with no relief. also had one zofran at 0800 also with no relief. emesis bile and anything she attempts to take PO. rates 7/10 abd pain. no urinary problems Physician History: 30 years old female presented in the ER with chief complaint of upper abdominal pain associated with nausea and multiple episodes of nonprojectile, nonbilious vomiting with no hematemesis. Patient was seen in the ER yesterday with thorough work-up including CT done which were grossly negative and patient was discharged on Reglan/Protonix. She did not have vomiting after discharge yesterday until this morning. Patient reports she had router tender last night and around 4 AM woke up with increasing upper abdominal pain with nausea and had multiple episodes of vomiting. Denies any fever or chills. She has a chronic diarrhea after her cholecystectomy and is not any worse than usual. No fever or chills reported. Patient feels dehydrated and generally weak. Timing/Duration: day(s) (3) Activities at Onset: rest Quality: aching Pain Radiation: RUQ, epigastric, periumbilical Severity of Pain-Max: moderate Severity of Pain-Current: moderate Modifying Factors: Improves With: eating, vomiting Associated Symptoms: diarrhea, nausea, vomiting Previous symptoms: no prior history Allergies/Adverse Reactions: cephalexin monohydrate [From Keflex] Allergy (Mild, Verified 04/09/20 10:54) Hives Home Medications: Omeprazole 20 mg PO DAILY 05/22/19 [History] Hx Tetanus, Diphtheria Vaccination/Date Given: No Hx Influenza Vaccination/Date Given: Yes Hx Pneumococcal Vaccination/Date Given: No Immunizations Up to Date: No Travel Risk - International Travel Have you traveled outside of the country in past 3 weeks: No - Coronavirus Screening Are you exhibiting any of the following symptoms?: Yes Symptoms: Vomiting/Diarrhea Close contact with a COVID-19 positive Pt in past 14-21 Days: No - Review of Systems Constitutional: Fatigue, Weakness Eyes: No Symptoms Ears, Nose, & Throat: No Symptoms Respiratory: No Symptoms Cardiac: No Symptoms Abdominal/Gastrointestinal: Abdominal Pain, Nausea, Vomiting, Diarrhea Genitourinary Symptoms: No Symptoms Musculoskeletal: No Symptoms Neurological: No Symptoms Psychological: No Symptoms Endocrine: No Symptoms Hematologic/Lymphatic: No Symptoms Immunological/Allergic: No Symptoms - Past Medical History Pertinent Past Medical History: Yes Neurological History: No Pertinent History ENT History: Other Cardiac History: No Pertinent History Respiratory History: No Pertinent History Endocrine Medical History: Liver Disease Musculoskeletal History: No Pertinent History GI Medical History: No Pertinent History History: Other Psycho-Social History: Anxiety, Depression Female Reproductive Disorders: No Pertinent History Other Medical History: chronic back pain secondary to degenerative disk disease. smoker and vaping. wears glasses, fatty liver, UTI - Past Surgical History Past Surgical History: Yes Neuro Surgical History: No Pertinent History Cardiac: No Pertinent History Respiratory: No Pertinent History Gastrointestinal: No Pertinent History Genitourinary: No Pertinent History Musculoskeletal: Orthopedic Surgery Female Surgical History: No Pertinent History Other Surgical History: knee - tonsils - adenoids - tubes in ears. nicole - Social History Smoking Status: Current every day smoker How long have you smoked: years Exposure to second hand smoke: Yes Drug Use: none Patient Lives Alone: No - Female History Hx Now: No - Nursing Vital Signs Nursing Vital Signs: Initial Vital Signs Temperature 98.1 F 04/29/20 10:05 Pulse Rate 85 04/29/20 10:05 Respiratory Rate 18 04/29/20 10:05 Blood Pressure 132/89 04/29/20 10:05 O2 Sat by Pulse Oximetry 97 04/29/20 10:05 Pain Scale Pain Intensity 10 - Physical Exam General Appearance: no apparent distress, alert Eye Exam: eyes nml inspection Ears, Nose, Throat Exam: normal ENT inspection, pharynx normal Neck Exam: normal inspection, supple, full range of motion Respiratory Exam: normal breath sounds, lungs clear Cardiovascular Exam: regular rate/rhythm, normal heart sounds Gastrointestinal/Abdomen Exam: soft, tenderness (Epigastric/periumbilical area/right upper quadrant with no guarding or rebound) Back Exam: normal inspection, normal range of motion, No CVA tenderness Extremity Exam: normal inspection Neurologic Exam: alert, oriented x 3, cooperative Skin Exam: normal color, warm, dry SpO2 Interpretation: normal SpO2: 97 O2 Delivery: Room Air Ordered Tests: Active Orders 24 hr Category Date Time Status IV Insertion STAT Care 04/29/20 10:24 Active NPO (ED) STAT Care 04/29/20 10:24 Active KUB Stat Exams 04/29/20 10:24 Taken CBC W DIFF Stat Lab 04/29/20 10:24 Completed CMP Stat Lab 04/29/20 10:24 Completed LIPASE Stat Lab 04/29/20 10:24 Completed UA W/RFX UR CULTURE Stat Lab 04/29/20 10:26 Completed Medication Summary Discontinued Medications Generic Name Dose Route Start Last Admin Trade Name Ronnellq PRN Reason Stop Dose Admin Famotidine 20 mg 04/29/20 10:24 04/29/20 10:32 Pepcid 20 Mg Vial IV 04/29/20 10:25 20 mg STAT ONE Administration Famotidine Confirm 04/29/20 10:27 Pepcid 20 Mg Vial Administered 04/29/20 10:28 Dose 20 mg IV .STK-MED ONE Hydromorphone HCl Confirm 04/29/20 11:14 Hydromorphone 1 Mg/Ml Ampule Administered 04/29/20 11:15 Dose 1 mg .ROUTE .STK-MED ONE Hydromorphone HCl 1 mg 04/29/20 11:24 04/29/20 11:26 Hydromorphone 1 Mg/Ml Ampule IV 04/29/20 11:25 1 mg STAT ONE Administration Sodium Chloride 1,000 mls @ 999 mls/hr 04/29/20 10:24 04/29/20 11:33 Sodium Chloride 0.9% 1000 Ml IV 04/29/20 11:24 Infused .Q1H1M STA Infusion Sodium Chloride Confirm 04/29/20 10:28 Sodium Chloride 0.9% 1000 Ml Administered 04/29/20 10:29 Dose 1,000 mls @ ud .ROUTE .STK-MED ONE Morphine Sulfate 4 mg 04/29/20 10:24 04/29/20 10:32 Morphine Sulfate 4 Mg Inj IV 04/29/20 10:25 4 mg STAT ONE Administration Morphine Sulfate Confirm 04/29/20 10:28 Morphine Sulfate 4 Mg Inj Administered 04/29/20 10:29 Dose 4 mg .ROUTE .STK-MED ONE Ondansetron HCl 4 mg 04/29/20 10:24 04/29/20 10:32 Zofran 4 Mg/2 Ml Vial IV 04/29/20 10:25 4 mg STAT ONE Administration Ondansetron HCl Confirm 04/29/20 10:27 Zofran 4 Mg/2 Ml Vial Administered 04/29/20 10:28 Dose 4 mg .ROUTE .STK-MED ONE Promethazine HCl Confirm 04/29/20 11:14 Phenergan 25 Mg Inj Administered 04/29/20 11:15 Dose 25 mg .ROUTE .STK-MED ONE Promethazine HCl 12.5 mg 04/29/20 11:24 04/29/20 11:26 Phenergan 25 Mg Inj IM 04/29/20 11:25 12.5 mg STAT ONE Administration Lab/Rad Data: Laboratory Result Diagrams 04/29/20 10:24 04/29/20 10:24 Laboratory Results 04/29/20 04/29/20 04/29/20 Range/Units 10:26 10:24 10:24 WBC 11.1 H (4.0-10.5) K/mm3 RBC 4.76 (4.1-5.4) M/mm3 Hgb 14.8 (12.0-16.0) gm/dl Hct 43.8 (35-47) % MCV 92.0 (78-100) fl MCH 31.1 (26-32) pg MCHC 33.8 (32-36) g/dl RDW 12.3 (11.5-14.0) % Plt Count 400 (150-450) K/mm3 MPV 9.6 (7.5-11.0) fl Gran % 70.8 H (36.0-66.0) % Eos # (Auto) 0.08 (0-0.5) Absolute Lymphs (auto) 2.71 (1.0-4.6) Absolute Monos (auto) 0.43 (0.0-1.3) Lymphocytes % 24.3 (24.0-44.0) % Monocytes % 3.9 (0.0-12.0) % Eosinophils % 0.7 (0.00-5.0) % Basophils % 0.3 (0.0-0.4) % Absolute Granulocytes 7.88 H (1.4-6.9) Basophils # 0.03 (0-0.4) Sodium 137 (137-145) mmol/L Potassium 3.4 L (3.5-5.1) mmol/L Chloride 106 (98-107) mmol/L Carbon Dioxide 21 L (22-30) mmol/L Anion Gap 12.6 (5-15) MEQ/L BUN 4 L (7-17) mg/dL Creatinine 0.55 (0.52-1.04) mg/dL Estimated GFR > 60.0 ML/MIN Glucose 104 (74-106) mg/dL Calcium 9.1 (8.4-10.2) mg/dL Total Bilirubin 0.80 (0.2-1.3) mg/dL AST 20 (14-36) U/L ALT 13 (0-35) U/L Alkaline Phosphatase 93 (38-126) U/L Serum Total Protein 7.4 (6.3-8.2) g/dL Albumin 4.3 (3.5-5.0) g/dL Lipase 102 (23-300) U/L Urine Color STRAW (YELLOW) Urine Appearance CLEAR (CLEAR) Urine pH 8.0 (5-6) Ur Specific [place] 1.003 (1.005-1.025) Urine Protein NEGATIVE (Negative) Urine Ketones TRACE (NEGATIVE) Urine Blood SMALL (0-5) Ajay/ul Urine Nitrite NEGATIVE (NEGATIVE) Urine Bilirubin NEGATIVE (NEGATIVE) Urine Urobilinogen NEGATIVE (0-1) mg/dL Ur Leukocyte Esterase NEGATIVE (NEGATIVE) Urine WBC (Auto) NONE (0-5) /HPF Urine RBC (Auto) NONE (0-2) /HPF U Epithel Cells (Auto) RARE (FEW) /HPF Urine Bacteria (Auto) NONE (NEGATIVE) /HPF Urine Mucus (Auto) SLIGHT (NEGATIVE) /HPF Urine Culture Reflexed NO (NO) Urine Glucose NEGATIVE (NEGATIVE) mg/dL - Progress Progress: improved, re-examined Progress Note: 04/29/20 12:26 She is given IV fluid and pain medication along with Zofran and Phenergan, on reevaluation feeling better. She has no peritoneal signs. Vomiting only couple of times before antiemetics and currently nausea free. Has minimally elevated white count of 11, stable chemistries. KUB did not show any obstructive gas pattern. I believe patient has gastritis and is advised to continue with Protonix and will add Phenergan to take as needed along with Zofran and will hold off on Reglan. She is advised to slowly introduce soft diet followed by regular. Discussed signs symptoms of worsening needing return to ER which she seemed understanding. Stable for discharge. Counseled pt/family regarding: lab results, diagnosis, need for follow-up, rad results - Departure Departure Disposition: Home Clinical Impression: Gastritis Qualifiers: Gastritis type: unspecified gastritis Chronicity: acute Gastritis bleeding: without bleeding Qualified Code(s): K29.00 - Acute gastritis without bleeding Condition: Stable Critical Care Time: No Referrals: SAHRA GALVZE MD [Primary Care Provider] - Follow Up with PCP/3 days Instructions: Gastritis (DC), Nausea and Vomiting, Adult (DC) Additional Instructions: Drink plenty of fluids. Continue with Protonix. Take Zofran and Phenergan as needed on alternate basis. Stop taking Reglan. Follow-up with primary care for reevaluation. Return to ER for any worsening. Prescriptions: Promethazine HCl 25 mg [Phenergan 25 mg] 25 mg PO Q8H PRN PRN #10 tablet PRN Reason: Vomiting
[2020-04-29] MEDS ORDERED: Zofran 4 MG/2 ML VIAL ONE (10:27)
[2020-04-29] MEDS ORDERED: Sodium Chloride 0.9% 1000 ML 1,000 ML ONE (10:28)
[2020-04-29] MEDS ORDERED: MORPHINE SULFATE 4 MG INJ ONE (10:28)
[2020-04-29 10:43] LABS: Absolute Neutrophil Ct (ANC) 7.88 (1.4-6.9); BASOPHIL % 0.3 % (0.0-0.4); Basophil (Absolute #) 0.03 (0-0.4); Eosinophil % 0.7 % (0.00-5.0); Eosinophil (Absolute #) 0.08 (0-0.5); Hematocrit 43.8 % (35-47); Hemoglobin 14.8 gm/dl (12.0-16.0); Lymphocyte (Absolute #) 2.71 (1.0-4.6); Lymphocytes % 24.3 % (24.0-44.0); Mean Corpuscular Hemoglobin 31.1 pg (26-32); Mean Corpuscular Hgb Concent. 33.8 g/dl (32-36); Mean Platelet Volume 9.6 fl (7.5-11.0); Monocyte (Absolute #) 0.43 (0.0-1.3); Monocytes % 3.9 % (0.0-12.0); Neutrophil % 70.8 % (36.0-66.0); Platelet Count 400 K/mm3 (150-450); Red Blood Count 4.76 M/mm3 (4.1-5.4); Red Cell Distribution Width 12.3 % (11.5-14.0); White Blood Count 11.1 K/mm3 (4.0-10.5)
[2020-04-29 10:45] LABS: Appearance CLEAR (CLEAR); Bilirubin NEGATIVE (NEGATIVE); Blood SMALL Ery/ul (0-5); Epithelial Cells RARE /HPF (FEW); Glucose NEGATIVE (NEGATIVE); Ketones TRACE (NEGATIVE); Leukocyte Esterase NEGATIVE (NEGATIVE); Mucus SLIGHT /HPF (NEGATIVE); Nitrite NEGATIVE (NEGATIVE); Protein,Urine Dip NEGATIVE (Negative); Specific Gravity 1.003 (1.005-1.025); Urobilinogen NEGATIVE mg/dL (0-1)
[2020-04-29 10:55] LABS: ALBUMIN 4.3 g/dL (3.5-5.0); ALKALINE PHOSPHATASE 93 U/L (38-126); ANION GAP 12.6 MEQ/L (5-15); BLOOD UREA NITROGEN 4 mg/dL (7-17); CHLORIDE 106 mmol/L (98-107); Calcium 9.1 mg/dL (8.4-10.2); Carbon Dioxide 21 mmol/L (22-30); Creatinine 1 0.55 mg/dL (0.52-1.04); Glucose 104 mg/dL (74-106); LIPASE 102 U/L (23-300); Potassium 3.4 mmol/L (3.5-5.1); SGOT/AST 20 U/L (14-36); SGPT/ALT 13 U/L (0-35); SODIUM 137 mmol/L (137-145); Total Protein 7.4 g/dL (6.3-8.2)
[2020-04-29] MEDS ORDERED: Hydromorphone 1 mg/ml Ampule ONE (11:14)
[2020-04-29] MEDS ORDERED: Phenergan 25 MG INJ ONE (11:14)
[2020-04-29] MEDS ORDERED: Hydromorphone 1 mg/ml Ampule IV ONE (11:24)
[2020-04-29] MEDS ORDERED: Phenergan 25 MG INJ IM ONE (11:24)
[2020-04-29 12:25] VITALS: O2SAT 97
[2020-04-29 12:43] VITALS: BP 131/77; PULSE 56
--- NOTE | 2020-04-29 15:58 | XRAY ---
Indication: Abdomen pain, nausea, and vomiting. Negative CT abdomen/pelvis 1 day earlier. Comparison: None KUB nonacute and nonobstructed with incidental cholecystectomy clips and IUD in situ. Solid organs unremarkable. Osseous structures intact with stable right femur head bone island.
== END 2020-04-29 12:43 | disposition home or self-care (01) ==
LOC: ED 10:04
DX: K29.00 Acute gastritis without bleeding (principal); R11.2 Nausea with vomiting, unspecified; R19.7 Diarrhea, unspecified; R10.11 Right upper quadrant pain; R10.13 Epigastric pain; R10.9 Unspecified abdominal pain; Z79.899 Other long term (current) drug therapy
CPT/HCPCS: 36000; 36415; 74018; 80053; 81001; 83690; 85025; 96360; 96372; 96374; 96375; 99284; J1170; J2270; J2405; J2550

== ENCOUNTER 2020-04-30 07:04 | Emergency (ER) | payer OTHER ==
[2020-04-30] MEDS ORDERED: Zofran 4 MG/2 ML VIAL IV ONE (07:18)
[2020-04-30] MEDS ORDERED: Sodium Chloride 0.9% 1000 ML 1,000 ML IV STA (07:18)
[2020-04-30] MEDS ORDERED: Carafate 1 GM PO ONE ×2 (07:18→07:43)
--- NOTE | 2020-04-30 07:21 | ERPHSYRPT ---
- History of Present Illness Time Seen by Provider: 04/30/20 07:17 Historian: patient Exam Limitations: no limitations Physician History: The patient is a 30-year-old female who presents with a chief complaint of persistent nausea and vomiting and epigastric pain as well as right upper quadrant pain. Of note, this is the patient's believe third visit to the emergency department for such complaint. She reportedly has been dealing with abdominal pain and nausea vomiting for well over a year. She had an outpatient HIDA scan that suggested possible chronic cholecystitis a year ago but decided against a cholecystectomy because a family member talked her out of it. She represented again as an outpatient with ongoing right upper quadrant pain and nausea vomiting and had a repeat gallbladder ultrasound on 04/10/20 that was relatively benign and then had a elective cholecystectomy by Dr. Hardy on April 102019. She continues to experience right upper quadrant and epigastric pain as well as nausea vomiting as described above and has had a recent CT abdomen and pelvis with contrast on 04/28/20 that was relatively benign with the exception of showing evidence of her being status post cholecystectomy with no evidence of abscess or bile leak. She re-presented again to the emergency department with ongoing abdominal pain and had a KUB on April 29, 2020 that was relatively normal and her labs are relatively reassuring and she was subsequently discharged with not only instructions to take Zofran but as well as promethazine and Protonix which reportedly she has been trying to take but with no relief in her symptoms. She states that she continues to vomit and has tried to take 2 doses of Phenergan but she keeps vomiting the medications up and will not stay down. Of note, the patient did endorse being in a weekly marijuana smoker and reports that she smokes marijuana in addition to vaping CBD oil and this seems to help her abdominal pain. She states that her last use was Friday prior to coming back to the emergency department with vomiting and epigastric pain and right upper quadrant abdominal pain. Allergies/Adverse Reactions: cephalexin monohydrate [From Keflex] Allergy (Mild, Verified 04/30/20 09:43) Hives Home Medications: Omeprazole 20 mg PO DAILY 05/22/19 [History] Hx Tetanus, Diphtheria Vaccination/Date Given: No Hx Influenza Vaccination/Date Given: Yes Hx Pneumococcal Vaccination/Date Given: No - Review of Systems Constitutional: No Fever, No Chills Eyes: No Symptoms Ears, Nose, & Throat: No Symptoms Respiratory: No Symptoms Abdominal/Gastrointestinal: Abdominal Pain, Nausea, Vomiting Genitourinary Symptoms: No Dysuria, No Frequency, No Hematuria Musculoskeletal: No No Symptoms Skin: No Symptoms Neurological: No Symptoms Psychological: No Symptoms Endocrine: No Symptoms Hematologic/Lymphatic: No Symptoms All Other Systems: Reviewed and Negative - Past Medical History Pertinent Past Medical History: Yes Neurological History: No Pertinent History ENT History: Other Cardiac History: No Pertinent History Respiratory History: No Pertinent History Endocrine Medical History: Liver Disease Musculoskeletal History: No Pertinent History GI Medical History: No Pertinent History History: Other Psycho-Social History: Anxiety, Depression Female Reproductive Disorders: No Pertinent History Other Medical History: chronic back pain secondary to degenerative disk disease. smoker and vaping. wears glasses, fatty liver, UTI - Past Surgical History Past Surgical History: Yes Neuro Surgical History: No Pertinent History Cardiac: No Pertinent History Respiratory: No Pertinent History Gastrointestinal: No Pertinent History Genitourinary: No Pertinent History Musculoskeletal: Orthopedic Surgery Female Surgical History: No Pertinent History Other Surgical History: knee - tonsils - adenoids - tubes in ears. nicole - Social History Smoking Status: Current every day smoker How long have you smoked: years Exposure to second hand smoke: Yes Drug Use: none Patient Lives Alone: No - Nursing Vital Signs Nursing Vital Signs: Initial Vital Signs Temperature 98.2 F 04/30/20 07:18 Pulse Rate 62 04/30/20 07:18 Respiratory Rate 16 04/30/20 07:18 Blood Pressure 121/106 04/30/20 07:18 O2 Sat by Pulse Oximetry 99 04/30/20 07:18 Pain Scale Pain Intensity 5 - Physical Exam General Appearance: mild distress, obese, other (The patient was sitting up in the bed with a bag full of vomitus) Eye Exam: PERRL/EOMI, eyes nml inspection, scleral icterus Ears, Nose, Throat Exam: normal ENT inspection Neck Exam: normal inspection, non-tender, supple Respiratory Exam: normal breath sounds, lungs clear, No chest tenderness, No respiratory distress Cardiovascular Exam: normal heart sounds, normal peripheral pulses, capillary refill <2 sec, No murmur, No friction rub, No gallop Gastrointestinal/Abdomen Exam: soft, tenderness (Tenderness to the epigastrum and RUQ with no rebound tenderness, guarding, or rigidity) Pelvic Exam: not done Rectal Exam: deferred Back Exam: normal inspection Extremity Exam: normal inspection Neurologic Exam: alert, oriented x 3, cooperative Skin Exam: normal color, warm, dry, No rash, No petechiae, No jaundice SpO2 Interpretation: normal O2 Delivery: Room Air Ordered Tests: Active Orders 24 hr Category Date Time Status EKG-ER Only STAT Care 04/30/20 07:18 Completed IV Insertion STAT Care 04/30/20 07:18 Completed CMP Stat Lab 04/30/20 07:18 Completed LIPASE Stat Lab 04/30/20 07:18 Completed Lactic Acid Stat Lab 04/30/20 07:18 Completed UA W/RFX UR CULTURE Stat Lab 04/30/20 07:56 Completed Urine Triage Profile Stat Lab 04/30/20 07:56 Completed Medication Summary Discontinued Medications Generic Name Dose Route Start Last Admin Trade Name Freq PRN Reason Stop Dose Admin Dicyclomine HCl 20 mg 04/30/20 09:00 04/30/20 09:06 Bentyl 20 Mg PO 04/30/20 09:01 20 mg ONCE ONE Administration Dicyclomine HCl Confirm 04/30/20 09:03 Bentyl 20 Mg Administered 04/30/20 09:04 Dose 20 mg .ROUTE .STK-MED ONE Diphenhydramine HCl 25 mg 04/30/20 07:33 04/30/20 07:52 Benadryl 50 Mg/Ml IV 04/30/20 07:34 25 mg STAT ONE Administration Diphenhydramine HCl Confirm 04/30/20 07:43 Benadryl 50 Mg/Ml Administered 04/30/20 07:44 Dose 50 mg .ROUTE .STK-MED ONE Diphenhydramine HCl 25 mg 04/30/20 08:58 04/30/20 09:05 Benadryl 50 Mg/Ml IV 04/30/20 08:59 25 mg STAT ONE Administration Diphenhydramine HCl Confirm 04/30/20 09:02 Benadryl 50 Mg/Ml Administered 04/30/20 09:03 Dose 50 mg .ROUTE .STK-MED ONE Haloperidol Lactate 2.5 mg 04/30/20 07:32 04/30/20 07:51 Haldol 5 Mg IV 04/30/20 07:33 2.5 mg STAT ONE Administration Haloperidol Lactate Confirm 04/30/20 07:43 Haldol 5 Mg Administered 04/30/20 07:44 Dose 5 mg .ROUTE .STK-MED ONE Sodium Chloride 1,000 mls @ 999 mls/hr 04/30/20 07:18 04/30/20 07:46 Sodium Chloride 0.9% 1000 Ml IV 04/30/20 08:18 999 mls/hr .Q1H1M STA Administration Sodium Chloride Confirm 04/30/20 07:43 Sodium Chloride 0.9% 1000 Ml Administered 04/30/20 07:44 Dose 1,000 mls @ ud .ROUTE .STK-MED ONE Metoclopramide HCl 10 mg 04/30/20 08:58 04/30/20 09:06 Reglan 10 Mg/2 Ml IV 04/30/20 08:59 10 mg STAT ONE Administration Metoclopramide HCl Confirm 04/30/20 09:03 Reglan 10 Mg/2 Ml Administered 04/30/20 09:04 Dose 10 mg .ROUTE .STK-MED ONE Ondansetron HCl 8 mg 04/30/20 07:18 04/30/20 07:51 Zofran 4 Mg/2 Ml Vial IV 04/30/20 07:19 8 mg STAT ONE Administration Ondansetron HCl Confirm 04/30/20 07:43 Zofran 4 Mg/2 Ml Vial Administered 04/30/20 07:44 Dose 4 mg .ROUTE .STK-MED ONE Ondansetron HCl Confirm 04/30/20 07:53 Zofran 4 Mg/2 Ml Vial Administered 04/30/20 07:54 Dose 4 mg .ROUTE .STK-MED ONE Sucralfate 1 g 04/30/20 07:18 04/30/20 08:32 Carafate 1 Gm PO 04/30/20 07:19 1 g STAT ONE Administration Sucralfate Confirm 04/30/20 07:43 Carafate 1 Gm Administered 04/30/20 07:44 Dose 1 g PO .STK-MED ONE Lab/Rad Data: Laboratory Result Diagrams 04/30/20 07:18 Laboratory Results 04/30/20 04/30/20 04/30/20 Range/Units 07:56 07:56 07:18 Sodium 137 (137-145) mmol/L Potassium 3.6 (3.5-5.1) mmol/L Chloride 105 (98-107) mmol/L Carbon Dioxide 23 (22-30) mmol/L Anion Gap 12.5 (5-15) MEQ/L BUN 4 L (7-17) mg/dL Creatinine 0.69 (0.52-1.04) mg/dL Estimated GFR > 60.0 ML/MIN Glucose 112 H (74-106) mg/dL Lactic Acid (0.4-2.0) Calcium 9.3 (8.4-10.2) mg/dL Total Bilirubin 0.70 (0.2-1.3) mg/dL AST 32 (14-36) U/L ALT 29 (0-35) U/L Alkaline Phosphatase 105 (38-126) U/L Serum Total Protein 7.5 (6.3-8.2) g/dL Albumin 4.3 (3.5-5.0) g/dL Lipase 99 (23-300) U/L Urine Color STRAW (YELLOW) Urine Appearance CLEAR (CLEAR) Urine pH 9.0 (5-6) Ur Specific [place] 1.004 (1.005-1.025) Urine Protein NEGATIVE (Negative) Urine Ketones TRACE (NEGATIVE) Urine Blood NEGATIVE (0-5) Ajay/ul Urine Nitrite NEGATIVE (NEGATIVE) Urine Bilirubin NEGATIVE (NEGATIVE) Urine Urobilinogen NEGATIVE (0-1) mg/dL Ur Leukocyte Esterase NEGATIVE (NEGATIVE) Urine WBC (Auto) NONE (0-5) /HPF Urine RBC (Auto) NONE (0-2) /HPF U Epithel Cells (Auto) NONE (FEW) /HPF Urine Bacteria (Auto) NONE (NEGATIVE) /HPF Urine Culture Reflexed NO (NO) Urine Glucose NEGATIVE (NEGATIVE) mg/dL Urine Opiates Level NEGATIVE (NEGATIVE) Ur Methadone NEGATIVE (NEGATIVE) Urine Barbiturates NEGATIVE (NEGATIVE) Ur Phencyclidine (PCP) NEGATIVE (NEGATIVE) Urine Amphetamine NEGATIVE (NEGATIVE) U Benzodiazepine Level NEGATIVE (NEGATIVE) Urine Cocaine NEGATIVE (NEGATIVE) Urine Marijuana (THC) POSITIVE (NEGATIVE) 04/30/20 Range/Units 07:18 Sodium (137-145) mmol/L Potassium (3.5-5.1) mmol/L Chloride (98-107) mmol/L Carbon Dioxide (22-30) mmol/L Anion Gap (5-15) MEQ/L BUN (7-17) mg/dL Creatinine (0.52-1.04) mg/dL Estimated GFR ML/MIN Glucose (74-106) mg/dL Lactic Acid 1.1 (0.4-2.0) Calcium (8.4-10.2) mg/dL Total Bilirubin (0.2-1.3) mg/dL AST (14-36) U/L ALT (0-35) U/L Alkaline Phosphatase (38-126) U/L Serum Total Protein (6.3-8.2) g/dL Albumin (3.5-5.0) g/dL Lipase (23-300) U/L Urine Color (YELLOW) Urine Appearance (CLEAR) Urine pH (5-6) Ur Specific [place] (1.005-1.025) Urine Protein (Negative) Urine Ketones (NEGATIVE) Urine Blood (0-5) Ajay/ul Urine Nitrite (NEGATIVE) Urine Bilirubin (NEGATIVE) Urine Urobilinogen (0-1) mg/dL Ur Leukocyte Esterase (NEGATIVE) Urine WBC (Auto) (0-5) /HPF Urine RBC (Auto) (0-2) /HPF U Epithel Cells (Auto) (FEW) /HPF Urine Bacteria (Auto) (NEGATIVE) /HPF Urine Culture Reflexed (NO) Urine Glucose (NEGATIVE) mg/dL Urine Opiates Level (NEGATIVE) Ur Methadone (NEGATIVE) Urine Barbiturates (NEGATIVE) Ur Phencyclidine (PCP) (NEGATIVE) Urine Amphetamine (NEGATIVE) U Benzodiazepine Level (NEGATIVE) Urine Cocaine (NEGATIVE) Urine Marijuana (THC) (NEGATIVE) - Progress Progress: improved (See progress note) Progress Note: 04/30/20 07:41 EMR reviewed, specifically most recent ED visits and recent operative report from her cholecystectomy. Patient is nontoxic in appearance who presents with persistent abdominal pain and nausea vomiting which honestly sounds like chronic abdominal pain at this time. I am suspicious that her right upper quadrant abdominal pain was not her gallbladder to begin with and she appears to have no postoperative complication seen on her most previous work-up in the emergency department include KUB as well as CT abdomen pelvis with contrast, specifically a bile leak or any abdominal abscess. Given her body habitus and given that there is evidence of hepatic steatosis differential at this time includes possible gastroparesis although she has not had any emptying study of her stomach at this point or possible cannabis hyperemesis syndrome given her repor doron history of marijuana use, specifically marijuana use to relieve her abdominal pain. No ahead and obtain screening labs to include CBC CMP, urine, UPT in addition to a urine drug screen. I did administer IV fluids in addition to Zofran. I discussed using Haldol with the patient and that has been used as an off label for abdominal pain, specifically cannabis hyperemesis syndrome with reported success and alleviation of pain. The patient was receptive to receiving this medication and she was warned about potential side effects to include akathisia's and dystonia which Benadryl will be administered to prevent this side effect. I did obtain a screening EKG to eval the patient's QT interv al to screen for prolonged QT given as some of these medications are associated with prolonging the QT interval as well. 04/30/20 09:00 Is reassessed to find that she felt "jittery" and stated that she was overall feeling better. I will go ahead and order more Benadryl, Bentyl in addition to some Reglan. I will try to contact her primary care provider to set up hopefully follow-up as an outpatient tomorrow. Her labs are reviewed and relatively benign. 04/30/20 09:21 Urine drug screen did confirm that the patient is indeed taken marijuana given that she tested positive for this. 04/30/20 09:59 The patient was discharged home with instructions to follow-up with her primary care provider for further evaluation. I specifically instructed her to inquire about the need for GI follow-up to see if she warrants an EGD or gastric emptying study. I have a suspicion that her right upper quadrant pain and nausea vomiting was likely not due to gallbladder dysfunction. I instructed her to refrain from using marijuana as well. He was discharged with Phenergan suppositories in addition to Bentyl. I have a low suspicion for peritonitis at this time and therefore imaging of her abdomen was deferred as planned. 04/30/20 10:03 Counseled pt/family regarding: lab results, diagnosis, need for follow-up, smoking cessation - Departure Departure Disposition: Home Clinical Impression: Nausea and vomiting, Abdominal pain, Marijuana abuse Condition: Good Critical Care Time: No Referrals: SAHRA GALVEZ MD [Primary Care Provider] - Instructions: Acute Abdomen (Belly Pain), Adult (DC), Nausea and Vomiting, Adult (DC) Additional Instructions: He is refrain from smoking marijuana or vaping CBD oil in the future. This may be contributing to your episodes of nausea and vomiting as well as abdominal pain. Please follow-up with your primary care provider if able ideally tomorrow and inquire about the need to have a gastroenterology referral, specifically to inquire about the need for endoscopy or an emptying study to rule out gastroparesis. Also please take Benadryl 5 to 50 mg every 8 hours for your complaint of "jitteriness" which may be a medication side effect from the Haldol. The side effect should gradually waned over the next 24 hours then resolve on its own. Prescriptions: Diphenhydramine HCl 25 mg [Benadryl 25 mg Capsule] 25 mg PO Q4H PRN PRN #20 capsule PRN Reason: Muscle Spasms Dicyclomine HCl 20 mg [Bentyl 20 mg] 20 mg PO Q6-8HPRN PRN #30 tablet PRN Reason: Pain Promethazine HCl 25 mg Supp [Phenergan 25 mg Supp] 25 mg [place] Q6-8HPRN PRN #25 supp.rect PRN Reason: Nausea/Vomiting
[2020-04-30] MEDS ORDERED: Haldol 5 MG IV ONE (07:32)
[2020-04-30] MEDS ORDERED: BENADRYL 50 MG/ML IV ONE ×2 (07:33→08:58)
[2020-04-30] MEDS ORDERED: Sodium Chloride 0.9% 1000 ML 1,000 ML ONE (07:43)
[2020-04-30] MEDS ORDERED: BENADRYL 50 MG/ML ONE ×2 (07:43→09:02)
[2020-04-30] MEDS ORDERED: Zofran 4 MG/2 ML VIAL ONE ×2 (07:43→07:53)
[2020-04-30] MEDS ORDERED: Haldol 5 MG ONE (07:43)
[2020-04-30 08:06] LABS: Appearance CLEAR (CLEAR); Bilirubin NEGATIVE (NEGATIVE); Blood NEGATIVE Ery/ul (0-5); Glucose NEGATIVE (NEGATIVE); Ketones TRACE (NEGATIVE); Leukocyte Esterase NEGATIVE (NEGATIVE); Nitrite NEGATIVE (NEGATIVE); Protein,Urine Dip NEGATIVE (Negative); Specific Gravity 1.004 (1.005-1.025); Urobilinogen NEGATIVE mg/dL (0-1)
[2020-04-30 08:07] LABS: ALBUMIN 4.3 g/dL (3.5-5.0); ALKALINE PHOSPHATASE 105 U/L (38-126); ANION GAP 12.5 MEQ/L (5-15); BLOOD UREA NITROGEN 4 mg/dL (7-17); CHLORIDE 105 mmol/L (98-107); Calcium 9.3 mg/dL (8.4-10.2); Carbon Dioxide 23 mmol/L (22-30); Creatinine 1 0.69 mg/dL (0.52-1.04); Glucose 112 mg/dL (74-106); LIPASE 99 U/L (23-300); Potassium 3.6 mmol/L (3.5-5.1); SGOT/AST 32 U/L (14-36); SGPT/ALT 29 U/L (0-35); SODIUM 137 mmol/L (137-145); Total Protein 7.5 g/dL (6.3-8.2)
[2020-04-30 08:34] LABS: Amphetamine,Urine NEGATIVE (NEGATIVE); Barbiturate,Urine NEGATIVE (NEGATIVE); Benzodiazepine,Urine NEGATIVE (NEGATIVE); Cocaine,Urine NEGATIVE (NEGATIVE); Methadone,Urine NEGATIVE (NEGATIVE); Opiate,Urine NEGATIVE (NEGATIVE); PCP,Urine NEGATIVE (NEGATIVE); THC,Urine POSITIVE (NEGATIVE)
[2020-04-30] MEDS ORDERED: Reglan 10 MG/2 ML IV ONE (08:58)
[2020-04-30] MEDS ORDERED: BENTYL 20 MG PO ONE (09:00)
[2020-04-30] MEDS ORDERED: Reglan 10 MG/2 ML ONE (09:03)
[2020-04-30] MEDS ORDERED: BENTYL 20 MG ONE (09:03)
[2020-04-30 09:41] VITALS: BP 114/89; PULSE 86; O2SAT 97
== END 2020-04-30 09:58 | disposition home or self-care (01) ==
LOC: ED 07:04
DX: R11.2 Nausea with vomiting, unspecified (principal); F12.10 Cannabis abuse, uncomplicated; R10.13 Epigastric pain
CPT/HCPCS: 36000; 36415; 80053; 80307; 81001; 83605; 83690; 93005; 96360; 96374; 96375; 96376; 99284; J1200; J1630; J2405; A9270-GY

== ENCOUNTER 2021-01-27 14:25 | Emergency (ER) | payer OTHER ==
[2021-01-27] MEDS ORDERED: Zofran 4 MG/2 ML VIAL IV ONE (14:58)
[2021-01-27] MEDS ORDERED: Protonix 40MG Tablet PO ONE (14:58)
[2021-01-27] MEDS ORDERED: Reglan 10 MG/2 ML IV ONE (14:58)
[2021-01-27] MEDS ORDERED: Sodium Chloride 0.9% 1000 ML 1,000 ML IV STA (14:58)
[2021-01-27] MEDS ORDERED: SUBLIMAZE 100 MCG/2 ML IV ONE (14:58)
[2021-01-27] MEDS ORDERED: Zofran 4 MG/2 ML VIAL ONE (15:12)
[2021-01-27] MEDS ORDERED: SUBLIMAZE 100 MCG/2 ML ONE (15:13)
[2021-01-27] MEDS ORDERED: Reglan 10 MG/2 ML ONE (15:13)
[2021-01-27] MEDS ORDERED: PROTONIX 40 MG IV IV ONE ×2 (15:13→15:29)
[2021-01-27] MEDS ORDERED: Sodium Chloride 0.9% 1000 ML 1,000 ML ONE (15:14)
[2021-01-27 15:31] LABS: Absolute Neutrophil Ct (ANC) 10.58 (1.4-6.9); BASOPHIL % 0.1 % (0.0-0.4); Basophil (Absolute #) 0.02 (0-0.4); Eosinophil % 0.4 % (0.00-5.0); Eosinophil (Absolute #) 0.05 (0-0.5); Hematocrit 53.8 % (35-47); Hemoglobin 18.1 gm/dl (12.0-16.0); Lymphocyte (Absolute #) 2.66 (1.0-4.6); Lymphocytes % 18.9 % (24.0-44.0); Mean Cell Volume 91.5 fl (78-100); Mean Corpuscular Hemoglobin 30.8 pg (26-32); Mean Corpuscular Hgb Concent. 33.6 g/dl (32-36); Mean Platelet Volume 9.5 fl (7.5-11.0); Monocytes % 5.7 % (0.0-12.0); Neutrophil % 74.9 % (36.0-66.0); Platelet Count 307 K/mm3 (150-450); Red Blood Count 5.88 M/mm3 (4.1-5.4); White Blood Count 14.1 K/mm3 (4.0-10.5)
[2021-01-27 15:37] LABS: ALBUMIN 4.5 g/dL (3.5-5.0); ALKALINE PHOSPHATASE 113 U/L (38-126); AMYLASE 55 U/L (30-110); ANION GAP 13.2 MEQ/L (5-15); BLOOD UREA NITROGEN 3 mg/dL (7-17); CHLORIDE 101 mmol/L (98-107); Calcium 9.6 mg/dL (8.4-10.2); Carbon Dioxide 24 mmol/L (22-30); Creatinine 1 0.63 mg/dL (0.52-1.04); EST GLOMERULAR FILTRATION RATE > 60.0 ML/MIN; Glucose 93 mg/dL (74-106); LIPASE 52 U/L (23-300); Potassium 3.3 mmol/L (3.5-5.1); SGOT/AST 28 U/L (14-36); SGPT/ALT 41 U/L (0-35); SODIUM 134 mmol/L (137-145); Total Protein 7.9 g/dL (6.3-8.2)
--- NOTE | 2021-01-27 18:04 | ERPHSYRPT ---
- History of Present Illness Time Seen by Provider: 01/27/21 14:50 Historian: patient Exam Limitations: no limitations Patient Subjective Stated Complaint: vomiting with upper abdominal pain for 3 days Triage Nursing Assessment: Pt was brought to the ER by her father, vitals wnl, rates abd pain as 7/10, upper quadrants of abdomen tender with palpatation, unable to keep anything down for 3 days, pulses normal, skin n/w/d Physician History: Patient has been vomiting for 3 days brought to the hospital by her father with a complaint of upper abdominal pain really severe nausea vomiting unable to retain anything for 3 days she reports no diarrhea no fever chills or sweats she also reports that she has these episodes frequently she had her gallbladder out within the last year and feels that that has worsened her problems. Timing/Duration: day(s) (3) Activities at Onset: none Quality: stabbing Abdominal Pain Onset Location: epigastric Pain Radiation: no radiation Severity of Pain-Max: moderate Severity of Pain-Current: moderate Modifying Factors: Improves With: eating, vomiting Associated Symptoms: nausea, vomiting Previous symptoms: same symptoms as today Allergies/Adverse Reactions: cephalexin monohydrate [From [employer]isure[employer]] Allergy (Mild, Verified 01/27/21 14:46) Hives Home Medications: Doxepin HCl 25 mg PO HS 01/27/21 [History] Hx Tetanus, Diphtheria Vaccination/Date Given: No Hx Influenza Vaccination/Date Given: Yes Hx Pneumococcal Vaccination/Date Given: No Travel Risk - International Travel Have you traveled outside of the country in past 3 weeks: No - Coronavirus Screening Are you exhibiting any of the following symptoms?: No Close contact with a COVID-19 positive Pt in past 14-21 Days: No - Vaccine Status Have you recieved a Covid-19 vaccination: No - Review of Systems Constitutional: No Fever, No Chills Eyes: No Symptoms Ears, Nose, & Throat: No Symptoms Respiratory: No Cough, No Dyspnea Cardiac: No Chest Pain, No Edema, No Syncope Abdominal/Gastrointestinal: Abdominal Pain, Vomiting, No Nausea, No Diarrhea Genitourinary Symptoms: No Dysuria Musculoskeletal: No Back Pain, No Neck Pain Skin: No Rash Neurological: No Dizziness, No Focal Weakness, No Sensory Changes Psychological: No Symptoms Endocrine: No Symptoms All Other Systems: Reviewed and Negative - Past Medical History Pertinent Past Medical History: Yes Neurological History: No Pertinent History ENT History: Other Cardiac History: No Pertinent History Respiratory History: No Pertinent History Endocrine Medical History: No Pertinent History Musculoskeletal History: Other GI Medical History: No Pertinent History History: Other Psycho-Social History: Anxiety, Depression Female Reproductive Disorders: No Pertinent History Other Medical History: IBS. ACL TEAR ON RIGHT KNEE AT AGE 14 WITH TWO SURGERIES. - Past Surgical History Past Surgical History: Yes Neuro Surgical History: No Pertinent History Cardiac: No Pertinent History Respiratory: No Pertinent History Gastrointestinal: Cholecystectomy Genitourinary: No Pertinent History Musculoskeletal: Orthopedic Surgery Female Surgical History: No Pertinent History Other Surgical History: knee - tonsils - adenoids - tubes in ears. nicole - Social History Smoking Status: Current every day smoker How long have you smoked: years Exposure to second hand smoke: Yes Drug Use: none Patient Lives Alone: No - Female History Hx Now: No (rachel) - Nursing Vital Signs Nursing Vital Signs: Initial Vital Signs Temperature 98.5 F 01/27/21 14:37 Pulse Rate 89 01/27/21 14:37 Blood Pressure 133/83 01/27/21 14:37 O2 Sat by Pulse Oximetry 97 01/27/21 14:37 Pain Scale Pain Intensity 5 - Physical Exam General Appearance: moderate distress, alert Eye Exam: PERRL/EOMI, eyes nml inspection Ears, Nose, Throat Exam: normal ENT inspection, pharynx normal, moist mucous membranes Neck Exam: normal inspection, non-tender, supple, full range of motion Respiratory Exam: normal breath sounds, lungs clear, No respiratory distress Cardiovascular Exam: regular rate/rhythm, normal heart sounds Gastrointestinal/Abdomen Exam: soft, No tenderness, No mass Back Exam: normal inspection, normal range of motion, No CVA tenderness, No vertebral tenderness Extremity Exam: normal inspection, normal range of motion, pelvis stable Neurologic Exam: alert, oriented x 3, cooperative, normal mood/affect, nml cerebellar function, sensation nml, No motor deficits Skin Exam: normal color, warm, dry SpO2: 99 - Course Nursing assessment & vital signs reviewed: Yes - CT Exams Abdomen/Pelvis CT Interpretation: Negative, Tele-radiologist Report Ordered Tests: Active Orders 24 hr Category Date Time Status IV Insertion STAT Care 01/27/21 14:58 Active ABDOMEN AND PELVIS W CONTRAST [CT] Stat Exams 01/27/21 14:59 Taken AMYLASE Stat Lab 01/27/21 15:15 Completed CBC W DIFF Stat Lab 01/27/21 15:15 Completed CMP Stat Lab 01/27/21 15:15 Completed LIPASE Stat Lab 01/27/21 15:15 Completed Lactic Acid Stat Lab 01/27/21 14:58 Completed UA W/RFX UR CULTURE Stat Lab 01/27/21 17:13 Ordered Medication Summary Discontinued Medications Generic Name Dose Route Start Last Admin Trade Name Remi PRN Reason Stop Dose Admin Fentanyl Citrate 50 mcg 01/27/21 14:58 01/27/21 15:27 Sublimaze 100 Mcg/2 Ml IV 01/27/21 14:59 50 mcg STAT ONE Administration Fentanyl Citrate Confirm 01/27/21 15:13 Sublimaze 100 Mcg/2 Ml Administered 01/27/21 15:14 Dose 100 mcg .ROUTE .STK-MED ONE Sodium Chloride 1,000 mls @ 999 mls/hr 01/27/21 14:58 01/27/21 16:20 Sodium Chloride 0.9% 1000 Ml IV 01/27/21 15:58 Infused .Q1H1M STA Infusion Sodium Chloride Confirm 01/27/21 15:14 Sodium Chloride 0.9% 1000 Ml Administered 01/27/21 15:15 Dose 1,000 mls @ ud .ROUTE .STK-MED ONE Metoclopramide HCl 10 mg 01/27/21 14:58 01/27/21 15:22 Reglan 10 Mg/2 Ml IV 01/27/21 14:59 10 mg STAT ONE Administration Metoclopramide HCl Confirm 01/27/21 15:13 Reglan 10 Mg/2 Ml Administered 01/27/21 15:14 Dose 10 mg .ROUTE .STK-MED ONE Ondansetron HCl 4 mg 01/27/21 14:58 01/27/21 15:21 Zofran 4 Mg/2 Ml Vial IV 01/27/21 14:59 4 mg STAT ONE Administration Ondansetron HCl Confirm 01/27/21 15:12 Zofran 4 Mg/2 Ml Vial Administered 01/27/21 15:13 Dose 4 mg .ROUTE .STK-MED ONE Pantoprazole Sodium 40 mg 01/27/21 14:58 01/27/21 15:29 Protonix 40mg Tablet PO 01/27/21 14:59 Not Given STAT ONE Pantoprazole Sodium Confirm 01/27/21 15:13 Protonix 40 Mg Iv Administered 01/27/21 15:14 Dose 40 mg IV .STK-MED ONE Pantoprazole Sodium 40 mg 01/27/21 15:29 01/27/21 15:20 Protonix 40 Mg Iv IV 01/27/21 15:30 40 mg STAT ONE Administration Lab/Rad Data: Laboratory Result Diagrams 01/27/21 15:15 01/27/21 15:15 Laboratory Results 01/27/21 01/27/21 01/27/21 Range/Units 15:15 15:15 14:58 WBC 14.1 H (4.0-10.5) K/mm3 RBC 5.88 H (4.1-5.4) M/mm3 Hgb 18.1 H (12.0-16.0) gm/dl Hct 53.8 H (35-47) % MCV 91.5 (78-100) fl MCH 30.8 (26-32) pg MCHC 33.6 (32-36) g/dl RDW 13.0 (11.5-14.0) % Plt Count 307 (150-450) K/mm3 MPV 9.5 (7.5-11.0) fl Gran % 74.9 H (36.0-66.0) % Eos # (Auto) 0.05 (0-0.5) Absolute Lymphs (auto) 2.66 (1.0-4.6) Absolute Monos (auto) 0.80 (0.0-1.3) Lymphocytes % 18.9 L (24.0-44.0) % Monocytes % 5.7 (0.0-12.0) % Eosinophils % 0.4 (0.00-5.0) % Basophils % 0.1 (0.0-0.4) % Absolute Granulocytes 10.58 H (1.4-6.9) Basophils # 0.02 (0-0.4) Sodium 134 L (137-145) mmol/L Potassium 3.3 L (3.5-5.1) mmol/L Chloride 101 (98-107) mmol/L Carbon Dioxide 24 (22-30) mmol/L Anion Gap 13.2 (5-15) MEQ/L BUN 3 L (7-17) mg/dL Creatinine 0.63 (0.52-1.04) mg/dL Estimated GFR > 60.0 ML/MIN Glucose 93 (74-106) mg/dL Lactic Acid 1.2 (0.4-2.0) Calcium 9.6 (8.4-10.2) mg/dL Total Bilirubin 0.90 (0.2-1.3) mg/dL AST 28 (14-36) U/L ALT 41 H (0-35) U/L Alkaline Phosphatase 113 (38-126) U/L Serum Total Protein 7.9 (6.3-8.2) g/dL Albumin 4.5 (3.5-5.0) g/dL Amylase 55 (30-110) U/L Lipase 52 (23-300) U/L - Progress Progress: improved - Departure Departure Disposition: Home Clinical Impression: Cyclical vomiting syndrome Condition: Fair Critical Care Time: No Referrals: SAHRA GALVEZ MD [Primary Care Provider] - Instructions: Gastritis (DC) Prescriptions: Metoclopramide HCl 10 mg [Reglan 10 MG] 10 mg PO Q6H 5 Days #30 tablet
[2021-01-27 18:39] VITALS: BP 124/72; PULSE 94; O2SAT 95
[2021-01-27 19:29] LABS: Appearance SLIGHTLY CLOUDY (CLEAR); Bilirubin NEGATIVE (NEGATIVE); Blood NEGATIVE Ery/ul (0-5); Epithelial Cells RARE /HPF (FEW); Glucose NEGATIVE (NEGATIVE); Ketones NEGATIVE (NEGATIVE); Leukocyte Esterase NEGATIVE (NEGATIVE); Nitrite NEGATIVE (NEGATIVE); Protein,Urine Dip NEGATIVE (Negative); Specific Gravity 1.008 (1.005-1.025); Urobilinogen NEGATIVE mg/dL (0-1)
--- NOTE | 2021-01-27 22:17 | XRAY ---
Indication: Abdomen pain, nausea, and vomiting. Multiple contiguous axial images obtained through the abdomen and pelvis using 80 cc Isovue 370 contrast. Comparison: April 28, 2020. Lung bases remain clear again with left lower lobe calcified granuloma. Heart not enlarged. Noncontrasted stomach and bowel loops remain nonobstructed. Normal appendix. Again cholecystectomy clips and uterine IUD. No free fluid/air. Remaining liver, pancreas, spleen, adrenal glands, kidneys, ureters, bladder, uterus, and aorta appear unremarkable. No pathologic retroperitoneal lymphadenopathy. Osseous structures intact. Impression: Continued negative CT abdomen/pelvis with contrast exam. Comment: Preliminary interpretation was made by [facility]. No critical discrepancy.
== END 2021-01-27 18:30 | disposition home or self-care (01) ==
LOC: ED 14:25
DX: R11.15 Cyclical vomiting syndrome unrelated to migraine (principal)
CPT/HCPCS: 36000; 36415; 74177; 80053; 81001; 82150; 83605; 83690; 85025; 96360; 96374; 96375; 99284; J2405; J3010

== ENCOUNTER 2021-04-03 11:32 | Observation (INO) | payer OTHER ==
[2021-04-03] MEDS ORDERED: MORPHINE SULFATE 4 MG INJ IV ONE ×2 (12:37→14:07)
[2021-04-03] MEDS ORDERED: Sodium Chloride 0.9% 1000 ML 1,000 ML IV STA (12:37)
[2021-04-03] MEDS ORDERED: Zofran 4 MG/2 ML VIAL IV ONE ×2 (12:52→14:14)
[2021-04-03 12:53] LABS: BASOPHIL % 0.2 % (0.0-0.4); Basophil (Absolute #) 0.03 (0-0.4); Eosinophil % 0.3 % (0.00-5.0); Eosinophil (Absolute #) 0.04 (0-0.5); Hematocrit 56.3 % (35-47); Hemoglobin 18.6 gm/dl (12.0-16.0); Lymphocyte (Absolute #) 1.82 (1.0-4.6); Lymphocytes % 13.7 % (24.0-44.0); Mean Cell Volume 94.5 fl (78-100); Mean Corpuscular Hemoglobin 31.2 pg (26-32); Mean Platelet Volume 9.8 fl (7.5-11.0); Monocyte (Absolute #) 0.47 (0.0-1.3); Monocytes % 3.5 % (0.0-12.0); Neutrophil % 82.3 % (36.0-66.0); Platelet Count 354 K/mm3 (150-450); Red Blood Count 5.96 M/mm3 (4.1-5.4); Red Cell Distribution Width 13.2 % (11.5-14.0); White Blood Count 13.3 K/mm3 (4.0-10.5)
[2021-04-03] MEDS ORDERED: MORPHINE SULFATE 4 MG INJ ONE ×2 (12:53→14:09)
[2021-04-03] MEDS ORDERED: Sodium Chloride 0.9% 1000 ML 1,000 ML ONE (12:53)
[2021-04-03] MEDS ORDERED: Zofran 4 MG/2 ML VIAL ONE ×2 (12:53→14:17)
[2021-04-03 13:05] LABS: ALBUMIN 4.5 g/dL (3.5-5.0); ALKALINE PHOSPHATASE 127 U/L (38-126); ANION GAP 15.2 MEQ/L (5-15); BLOOD UREA NITROGEN 4 mg/dL (7-17); CHLORIDE 106 mmol/L (98-107); Calcium 9.2 mg/dL (8.4-10.2); Carbon Dioxide 21 mmol/L (22-30); Creatinine 1 0.59 mg/dL (0.52-1.04); EST GLOMERULAR FILTRATION RATE > 60.0 ML/MIN; Glucose 116 mg/dL (74-106); LIPASE 75 U/L (23-300); Potassium 3.9 mmol/L (3.5-5.1); SGOT/AST 28 U/L (14-36); SGPT/ALT 20 U/L (0-35); SODIUM 137 mmol/L (137-145); Total Protein 8.1 g/dL (6.3-8.2)
[2021-04-03 13:07] LABS: Appearance SLIGHTLY CLOUDY (CLEAR); Bacteria RARE /HPF (NEGATIVE); Bilirubin NEGATIVE (NEGATIVE); Blood NEGATIVE Ery/ul (0-5); Epithelial Cells RARE /HPF (FEW); Glucose NEGATIVE (NEGATIVE); Ketones NEGATIVE (NEGATIVE); Leukocyte Esterase NEGATIVE (NEGATIVE); Mucus SLIGHT /HPF (NEGATIVE); Nitrite NEGATIVE (NEGATIVE); Protein,Urine Dip 30 (Negative); Urobilinogen NEGATIVE mg/dL (0-1); WBC 0-2 /HPF (0-5)
--- NOTE | 2021-04-03 15:11 | XRAY ---
Indication: Intermittent vomiting and nausea for over one year. Multiple contiguous images obtained through the abdomen and pelvis using 80 cc Isovue 370 contrast. Comparison: January 27, 2021. Lung bases demonstrates stable small left lower lobe calcified granuloma. No infiltrate or effusion. Heart not enlarged. New small hiatal hernia. Noncontrasted stomach and bowel loops remain nonobstructed with normal appendix. Stable cholecystectomy clips and uterine IUD. No free fluid/air. Remaining liver, pancreas, spleen, adrenal glands, kidneys, ureters, bladder, uterus, and aorta are unremarkable. No pathologic retroperitoneal lymphadenopathy. Osseous structures intact. Impression: 1. New small hiatal hernia. 2. Remaining CT abdomen/pelvis with contrast exam is again negative.
--- NOTE | 2021-04-03 15:25 | ERPHSYRPT ---
- History of Present Illness Time Seen by Provider: 04/03/21 11:55 Historian: patient Exam Limitations: no limitations Patient Subjective Stated Complaint: pt here for vomiting since last sat. pt has been vomiting off and on since gallbladder out, and was placed on new meds Triage Nursing Assessment: pt alert, vomiting.resp easy, skin w/d/p. face mask in place, abd soft Physician History: Patient is a 31-year-old female 1 year status post cholecystectomy presents to our ED with complaints of epigastric pain nausea and vomiting. Patient states that ever since she had her surgery she has been experiencing intermittent bouts of nausea vomiting and pain. Most recently patient's last bout of nausea vomiting started Friday 3 days ago. Patient states she is unable to hold anything down. Patient tries to eat and vomits immediately. Symptoms have been constant. No specific worsening improving factors. No trauma no fever. Patient denies chest pain. Patient voices no other complaints or concerns at this time. Timing/Duration: day(s) (3 days) Activities at Onset: none Quality: aching Abdominal Pain Onset Location: epigastric Pain Radiation: no radiation Severity of Pain-Max: moderate Severity of Pain-Current: mild Modifying Factors: Improves With: nothing Associated Symptoms: No chest pain, No diarrhea, No headache, No heartburn, No loss of appetite, No shortness of breath, No weakness Previous symptoms: no prior history Allergies/Adverse Reactions: cephalexin monohydrate [From Keflex] Allergy (Mild, Verified 04/03/21 11:52) Hives Home Medications: Amitriptyline HCl 10 mg [Elavil 10 mg] 1 ea DAILY 04/03/21 [History] Ondansetron ODT 4 MG [Zofran Odt 4 mg] 1 ea QID 04/03/21 [History] Trazodone HCl 1 ea DAILY 04/03/21 [History] Hx Tetanus, Diphtheria Vaccination/Date Given: No Hx Influenza Vaccination/Date Given: No Hx Pneumococcal Vaccination/Date Given: No Immunizations Up to Date: Yes Travel Risk - International Travel Have you traveled outside of the country in past 3 weeks: No - Coronavirus Screening Are you exhibiting any of the following symptoms?: No - Vaccine Status Have you recieved a Covid-19 vaccination: No - Review of Systems Constitutional: No Symptoms, No Fever, No Chills Eyes: No Symptoms Ears, Nose, & Throat: No Symptoms Respiratory: No Symptoms, No Cough, No Dyspnea Cardiac: No Symptoms, No Chest Pain, No Edema, No Syncope Abdominal/Gastrointestinal: No Symptoms, No Abdominal Pain, No Nausea, No Vomiting, No Diarrhea Genitourinary Symptoms: No Symptoms, No Dysuria Musculoskeletal: No Symptoms, No Back Pain, No Neck Pain Skin: No Symptoms, No Rash Neurological: No Symptoms, No Dizziness, No Focal Weakness, No Sensory Changes Psychological: No Symptoms Endocrine: No Symptoms Hematologic/Lymphatic: No Symptoms Immunological/Allergic: No Symptoms All Other Systems: Reviewed and Negative - Past Medical History Pertinent Past Medical History: Yes Neurological History: No Pertinent History ENT History: Other Cardiac History: No Pertinent History Respiratory History: No Pertinent History Endocrine Medical History: No Pertinent History Musculoskeletal History: Other GI Medical History: No Pertinent History History: Other Psycho-Social History: Anxiety, Depression Female Reproductive Disorders: No Pertinent History Other Medical History: IBS. ACL TEAR ON RIGHT KNEE AT AGE 14 WITH TWO SURGERIES. - Past Surgical History Past Surgical History: Yes Neuro Surgical History: No Pertinent History Cardiac: No Pertinent History Respiratory: No Pertinent History Gastrointestinal: Cholecystectomy Genitourinary: No Pertinent History Musculoskeletal: Orthopedic Surgery Female Surgical History: No Pertinent History Other Surgical History: knee - tonsils - adenoids - tubes in ears. nicole - Social History Smoking Status: Current every day smoker How long have you smoked: years Exposure to second hand smoke: Yes Drug Use: marijuana Patient Lives Alone: No - Female History Hx Last Menstrual Period: unsure Hx Now: No - Nursing Vital Signs Nursing Vital Signs: Initial Vital Signs Temperature 96.0 F 04/03/21 11:45 Pulse Rate 80 04/03/21 11:45 Respiratory Rate 16 04/03/21 11:45 Blood Pressure 159/97 04/03/21 11:45 O2 Sat by Pulse Oximetry 99 04/03/21 11:45 Pain Scale Pain Intensity 9 - Physical Exam General Appearance: no apparent distress, alert Eye Exam: PERRL/EOMI, eyes nml inspection Ears, Nose, Throat Exam: normal ENT inspection, pharynx normal, moist mucous membranes Neck Exam: normal inspection, non-tender, supple, full range of motion Respiratory Exam: normal breath sounds, lungs clear, No respiratory distress Cardiovascular Exam: regular rate/rhythm, normal heart sounds Gastrointestinal/Abdomen Exam: soft, tenderness, other (Epigastric tenderness. No guarding. No pulsatile masses no rebound. Overlying soft tissue intact. No signs of trauma.), No mass Back Exam: normal inspection, normal range of motion, No CVA tenderness, No vertebral tenderness Extremity Exam: normal inspection, normal range of motion, pelvis stable Neurologic Exam: alert, oriented x 3, cooperative, normal mood/affect, nml cerebellar function, sensation nml, No motor deficits Skin Exam: normal color, warm, dry SpO2 Interpretation: normal SpO2: 98 O2 Delivery: Room Air - Course Nursing assessment & vital signs reviewed: Yes - CT Exams Abdomen/Pelvis CT Interpretation: Tele-radiologist Report (New small hiatal hernia. CT abdomen pelvis with contrast is otherwise negative.) Ordered Tests: Active Orders 24 hr Category Date Time Status IV Insertion STAT Care 04/03/21 12:37 Active ABDOMEN AND PELVIS W CONTRAST [CT] Stat Exams 04/03/21 12:37 Completed CBC W DIFF Stat Lab 04/03/21 12:45 Completed CMP Stat Lab 04/03/21 12:45 Completed HCG,QUALITATIVE URINE Stat Lab 04/03/21 12:45 Completed LIPASE Stat Lab 04/03/21 12:45 Completed TROPONIN Q3H Lab 04/03/21 12:45 Completed TROPONIN Q3H Lab 04/03/21 15:45 Completed TROPONIN Q3H Lab 04/03/21 18:45 Ordered TROPONIN Q3H Lab 04/03/21 21:45 Ordered TROPONIN Q3H Lab 04/04/21 00:45 Ordered UA W/RFX UR CULTURE Stat Lab 04/03/21 12:45 Completed Transfer Order Routine Transfer 04/03/21 Ordered Medication Summary Discontinued Medications Generic Name Dose Route Start Last Admin Trade Name Freq PRN Reason Stop Dose Admin Al Hydrox/Mg Hydrox/Simethicone Confirm 04/03/21 15:31 Maalox Es 30 Ml Unit Dose Administered 04/03/21 15:32 Dose 30 ml .ROUTE .STK-MED ONE Sodium Chloride 1,000 mls @ 999 mls/hr 04/03/21 12:37 04/03/21 14:33 Sodium Chloride 0.9% 1000 Ml IV 04/03/21 13:37 Infused .Q1H1M STA Infusion Sodium Chloride Confirm 04/03/21 12:53 Sodium Chloride 0.9% 1000 Ml Administered 04/03/21 12:54 Dose 1,000 mls @ ud .ROUTE .STK-MED ONE Lidocaine HCl Confirm 04/03/21 15:30 Xylocaine Hcl Viscous * Administered 04/03/21 15:31 Dose 15 ml .ROUTE .STK-MED ONE Magnesium Hydroxide 45 ml 04/03/21 15:27 04/03/21 15:32 Gi Cocktail 45 Ml (Maalox/Lidocaine) PO 04/03/21 15:28 45 ml STAT ONE Administration Morphine Sulfate 4 mg 04/03/21 12:37 04/03/21 12:56 Morphine Sulfate 4 Mg Inj IV 04/03/21 12:38 4 mg STAT ONE Administration Morphine Sulfate Confirm 04/03/21 12:53 Morphine Sulfate 4 Mg Inj Administered 04/03/21 12:54 Dose 4 mg .ROUTE .STK-MED ONE Morphine Sulfate 4 mg 04/03/21 14:07 04/03/21 14:11 Morphine Sulfate 4 Mg Inj IV 04/03/21 14:08 4 mg STAT ONE Administration Morphine Sulfate Confirm 04/03/21 14:09 Morphine Sulfate 4 Mg Inj Administered 04/03/21 14:10 Dose 4 mg .ROUTE .STK-MED ONE Ondansetron HCl 4 mg 04/03/21 12:52 04/03/21 12:55 Zofran 4 Mg/2 Ml Vial IV 04/03/21 12:53 4 mg STAT ONE Administration Ondansetron HCl Confirm 04/03/21 12:53 Zofran 4 Mg/2 Ml Vial Administered 04/03/21 12:54 Dose 4 mg .ROUTE .STK-MED ONE Ondansetron HCl 4 mg 04/03/21 14:14 04/03/21 14:18 Zofran 4 Mg/2 Ml Vial IV 04/03/21 14:15 4 mg STAT ONE Administration Ondansetron HCl Confirm 04/03/21 14:17 Zofran 4 Mg/2 Ml Vial Administered 04/03/21 14:18 Dose 4 mg .ROUTE .STK-MED ONE Lab/Rad Data: Laboratory Result Diagrams 04/03/21 12:45 04/03/21 12:45 Laboratory Results 04/03/21 04/03/21 04/03/21 Range/Units 15:54 15:45 12:45 WBC (4.0-10.5) K/mm3 RBC (4.1-5.4) M/mm3 Hgb (12.0-16.0) gm/dl Hct (35-47) % MCV (78-100) fl MCH (26-32) pg MCHC (32-36) g/dl RDW (11.5-14.0) % Plt Count (150-450) K/mm3 MPV (7.5-11.0) fl Gran % (36.0-66.0) % Eos # (Auto) (0-0.5) Absolute Lymphs (auto) (1.0-4.6) Absolute Monos (auto) (0.0-1.3) Lymphocytes % (24.0-44.0) % Monocytes % (0.0-12.0) % Eosinophils % (0.00-5.0) % Basophils % (0.0-0.4) % Absolute Granulocytes (1.4-6.9) Basophils # (0-0.4) Sodium (137-145) mmol/L Potassium (3.5-5.1) mmol/L Chloride (98-107) mmol/L Carbon Dioxide (22-30) mmol/L Anion Gap (5-15) MEQ/L BUN (7-17) mg/dL Creatinine (0.52-1.04) mg/dL Estimated GFR ML/MIN Glucose (74-106) mg/dL Calcium (8.4-10.2) mg/dL Total Bilirubin (0.2-1.3) mg/dL AST (14-36) U/L ALT (0-35) U/L Alkaline Phosphatase (38-126) U/L Troponin I < 0.012 (0.000-0.034) ng/mL Serum Total Protein (6.3-8.2) g/dL Albumin (3.5-5.0) g/dL Lipase (23-300) U/L Urine Color (YELLOW) Urine Appearance (CLEAR) Urine pH (5-6) Ur Specific [place] (1.005-1.025) Urine Protein (Negative) Urine Ketones (NEGATIVE) Urine Blood (0-5) Ajay/ul Urine Nitrite (NEGATIVE) Urine Bilirubin (NEGATIVE) Urine Urobilinogen (0-1) mg/dL Ur Leukocyte Esterase (NEGATIVE) Urine WBC (Auto) (0-5) /HPF Urine RBC (Auto) (0-2) /HPF U Epithel Cells (Auto) (FEW) /HPF Urine Bacteria (Auto) (NEGATIVE) /HPF Urine Mucus (Auto) (NEGATIVE) /HPF Urine Culture Reflexed (NO) Urine Glucose (NEGATIVE) mg/dL Urine HCG, Qual NEGATIVE (Negative) SARS-CoV-2 (PCR) NEGATIVE (NEGATIVE) 04/03/21 04/03/21 04/03/21 Range/Units 12:45 12:45 12:45 WBC 13.3 H (4.0-10.5) K/mm3 RBC 5.96 H (4.1-5.4) M/mm3 Hgb 18.6 H (12.0-16.0) gm/dl Hct 56.3 H (35-47) % MCV 94.5 (78-100) fl MCH 31.2 (26-32) pg MCHC 33.0 (32-36) g/dl RDW 13.2 (11.5-14.0) % Plt Count 354 (150-450) K/mm3 MPV 9.8 (7.5-11.0) fl Gran % 82.3 H (36.0-66.0) % Eos # (Auto) 0.04 (0-0.5) Absolute Lymphs (auto) 1.82 (1.0-4.6) Absolute Monos (auto) 0.47 (0.0-1.3) Lymphocytes % 13.7 L (24.0-44.0) % Monocytes % 3.5 (0.0-12.0) % Eosinophils % 0.3 (0.00-5.0) % Basophils % 0.2 (0.0-0.4) % Absolute Granulocytes 10.90 H (1.4-6.9) Basophils # 0.03 (0-0.4) Sodium 137 (137-145) mmol/L Potassium 3.9 (3.5-5.1) mmol/L Chloride 106 (98-107) mmol/L Carbon Dioxide 21 L (22-30) mmol/L Anion Gap 15.2 H (5-15) MEQ/L BUN 4 L (7-17) mg/dL Creatinine 0.59 (0.52-1.04) mg/dL Estimated GFR > 60.0 ML/MIN Glucose 116 H (74-106) mg/dL Calcium 9.2 (8.4-10.2) mg/dL Total Bilirubin 0.60 (0.2-1.3) mg/dL AST 28 (14-36) U/L ALT 20 (0-35) U/L Alkaline Phosphatase 127 H (38-126) U/L Troponin I < 0.012 (0.000-0.034) ng/mL Serum Total Protein 8.1 (6.3-8.2) g/dL Albumin 4.5 (3.5-5.0) g/dL Lipase 75 (23-300) U/L Urine Color (YELLOW) Urine Appearance (CLEAR) Urine pH (5-6) Ur Specific [place] (1.005-1.025) Urine Protein (Negative) Urine Ketones (NEGATIVE) Urine Blood (0-5) Ajay/ul Urine Nitrite (NEGATIVE) Urine Bilirubin (NEGATIVE) Urine Urobilinogen (0-1) mg/dL Ur Leukocyte Esterase (NEGATIVE) Urine WBC (Auto) (0-5) /HPF Urine RBC (Auto) (0-2) /HPF U Epithel Cells (Auto) (FEW) /HPF Urine Bacteria (Auto) (NEGATIVE) /HPF Urine Mucus (Auto) (NEGATIVE) /HPF Urine Culture Reflexed (NO) Urine Glucose (NEGATIVE) mg/dL Urine HCG, Qual (Negative) SARS-CoV-2 (PCR) (NEGATIVE) 04/03/21 Range/Units 12:45 WBC (4.0-10.5) K/mm3 RBC (4.1-5.4) M/mm3 Hgb (12.0-16.0) gm/dl Hct (35-47) % MCV (78-100) fl MCH (26-32) pg MCHC (32-36) g/dl RDW (11.5-14.0) % Plt Count (150-450) K/mm3 MPV (7.5-11.0) fl Gran % (36.0-66.0) % Eos # (Auto) (0-0.5) Absolute Lymphs (auto) (1.0-4.6) Absolute Monos (auto) (0.0-1.3) Lymphocytes % (24.0-44.0) % Monocytes % (0.0-12.0) % Eosinophils % (0.00-5.0) % Basophils % (0.0-0.4) % Absolute Granulocytes (1.4-6.9) Basophils # (0-0.4) Sodium (137-145) mmol/L Potassium (3.5-5.1) mmol/L Chloride (98-107) mmol/L Carbon Dioxide (22-30) mmol/L Anion Gap (5-15) MEQ/L BUN (7-17) mg/dL Creatinine (0.52-1.04) mg/dL Estimated GFR ML/MIN Glucose (74-106) mg/dL Calcium (8.4-10.2) mg/dL Total Bilirubin (0.2-1.3) mg/dL AST (14-36) U/L ALT (0-35) U/L Alkaline Phosphatase (38-126) U/L Troponin I (0.000-0.034) ng/mL Serum Total Protein (6.3-8.2) g/dL Albumin (3.5-5.0) g/dL Lipase (23-300) U/L Urine Color YELLOW (YELLOW) Urine Appearance SLIGHTLY CLOUDY (CLEAR) Urine pH 8.0 (5-6) Ur Specific [place] 1.020 (1.005-1.025) Urine Protein 30 (Negative) Urine Ketones NEGATIVE (NEGATIVE) Urine Blood NEGATIVE (0-5) Ajay/ul Urine Nitrite NEGATIVE (NEGATIVE) Urine Bilirubin NEGATIVE (NEGATIVE) Urine Urobilinogen NEGATIVE (0-1) mg/dL Ur Leukocyte Esterase NEGATIVE (NEGATIVE) Urine WBC (Auto) 0-2 (0-5) /HPF Urine RBC (Auto) 3-5 (0-2) /HPF U Epithel Cells (Auto) RARE (FEW) /HPF Urine Bacteria (Auto) RARE (NEGATIVE) /HPF Urine Mucus (Auto) SLIGHT (NEGATIVE) /HPF Urine Culture Reflexed NO (NO) Urine Glucose NEGATIVE (NEGATIVE) mg/dL Urine HCG, Qual (Negative) SARS-CoV-2 (PCR) (NEGATIVE) - Progress Progress: improved Progress Note: Patient reassessed. Patient remains asymptomatic. Work-up does not explain patient's symptoms. Case discussed with Dr. Lopez who accepts admission to observation. Plan of care discussed with patient. She agrees to admission to [facility] for further evaluation and treatment patient is Covid negative. Dr. Lopez is covering Dr. Galvez today. 04/03/21 17:38 04/03/21 17:39 Discussed with : Sherley Will see patient in: hospital (observation) Counseled pt/family regarding: lab results, diagnosis, rad results - Departure Departure Disposition: Observation Clinical Impression: Leukocytosis, Hiatal hernia, Intractable nausea and vomiting, Intractable abdominal pain Condition: Stable Critical Care Time: No Referrals: SAHRA GALVEZ MD [Primary Care Provider] -
[2021-04-03] MEDS ORDERED: GI COCKTAIL 45 ML (Maalox/Lidocaine) PO ONE (15:27)
[2021-04-03] MEDS ORDERED: XYLOCAINE HCl Viscous ONE (15:30)
[2021-04-03] MEDS ORDERED: MAALOX ES 30 ML UNIT DOSE ONE (15:31)
[2021-04-03] MEDS ORDERED: Hydromorphone 1 mg/ml Injection IV PRN (17:42)
[2021-04-03] MEDS ORDERED: Hydromorphone 1 mg/ml Injection ONE (17:52)
[2021-04-03] MEDS ORDERED: TORAdol 30 mg Injection IV PRN (17:58)
[2021-04-03] MEDS ORDERED: DESYREL 50 MG PO PRN (17:58)
[2021-04-03] MEDS: Sodium Chloride 0.9% 1000 ML 1,000 ML IV SCH (17:59)
[2021-04-03] MEDS: Zofran 4 MG/2 ML VIAL IV PRN ×2 (18:00→23:50)
[2021-04-03 20:47] LABS: Amphetamine,Urine NEGATIVE (NEGATIVE); Barbiturate,Urine NEGATIVE (NEGATIVE); Benzodiazepine,Urine NEGATIVE (NEGATIVE); Cocaine,Urine NEGATIVE (NEGATIVE); Methadone,Urine NEGATIVE (NEGATIVE); Opiate,Urine NEGATIVE (NEGATIVE); PCP,Urine NEGATIVE (NEGATIVE); THC,Urine POSITIVE (NEGATIVE)
[2021-04-03] MEDS: Carafate 1 GM PO SCH (21:01)
[2021-04-03] MEDS ORDERED: NICODERM CQ 14 MG TOP SCH (21:30)
[2021-04-03] MEDS ORDERED: ELAVIL 10 MG PO SCH (22:00)
[2021-04-03] MEDS ORDERED: PROTONIX 40 MG IV IV SCH (22:00)
[2021-04-04] MEDS: Sodium Chloride 0.9% 1000 ML 1,000 ML IV SCH (03:59)
[2021-04-04 05:24] LABS: Absolute Neutrophil Ct (ANC) 9.25 (1.4-6.9); BASOPHIL % 0.2 % (0.0-0.4); Basophil (Absolute #) 0.03 (0-0.4); Eosinophil % 0.8 % (0.00-5.0); Eosinophil (Absolute #) 0.11 (0-0.5); Hematocrit 52.7 % (35-47); Hemoglobin 17.1 gm/dl (12.0-16.0); Lymphocyte (Absolute #) 3.46 (1.0-4.6); Lymphocytes % 25.1 % (24.0-44.0); Mean Cell Volume 96.7 fl (78-100); Mean Corpuscular Hemoglobin 31.4 pg (26-32); Mean Corpuscular Hgb Concent. 32.4 g/dl (32-36); Mean Platelet Volume 9.9 fl (7.5-11.0); Monocyte (Absolute #) 0.91 (0.0-1.3); Monocytes % 6.6 % (0.0-12.0); Neutrophil % 67.3 % (36.0-66.0); Platelet Count 300 K/mm3 (150-450); Red Blood Count 5.45 M/mm3 (4.1-5.4); Red Cell Distribution Width 13.1 % (11.5-14.0); White Blood Count 13.8 K/mm3 (4.0-10.5)
[2021-04-04] MEDS ORDERED: Zofran 4 MG/2 ML VIAL ONE (06:23)
[2021-04-04] MEDS: Zofran 4 MG/2 ML VIAL IV PRN (06:24)
[2021-04-04 07:02] VITALS: BP 132/88; PULSE 88; O2SAT 98
--- NOTE | 2021-04-04 08:11 | PCM.SSS ---
History of Present Illness - Chief Complaint Chief Complaint: intractable abdominal pain,n/v History of Present Illness: is a 31 year old female with chronic recurrent abdominal pain and vomiting, she has had trouble for over a year. She had a cholecystecomty [address] Pierre Hardy, following continued to have troubles, workup has been negative with Dr Juan Miguel RHODES and was referrred to GI in [place], recently started on amitriptyline, diagnosed with IBS. her pain and vomiting are resolved today and she is tolerating po intake. - Review of Systems Constitutional: No Fever, No Chills Respiratory: No Cough, No Short Of Breath Cardiac: No Chest Pain, No Edema, No Syncope Abdominal/Gastrointestinal: Abdominal Pain, Nausea, Vomiting, No Diarrhea, No Constipation Genitourinary Symptoms: No Dysuria Skin: No Rash All Other Systems: Reviewed and Negative Medications & Allergies Home Medications: Home Medication List Promethazine HCl 25 mg [Phenergan 25 mg] 25 mg PO Q8H PRN PRN #10 tablet 04/29/20 [Rx Confirmed 04/03/21] Amitriptyline HCl 10 mg [Elavil 10 mg] 1 ea PO HS 04/03/21 [History Confirmed 04/03/21] Ondansetron ODT 4 MG [Zofran Odt 4 mg] 1 ea PO QIDPRN PRN 04/03/21 [History Confirmed 04/03/21] Trazodone HCl 50 mg PO HSPRN PRN 04/03/21 [History Confirmed 04/03/21] Allergies/Adverse Reactions: Allergies Allergy/AdvReac Type Severity Reaction Status Date / Time cephalexin monohydrate Allergy Mild Hives Verified 04/03/21 11:52 [From Keflex] - Past Medical History Past Medical History: Yes Neurological History: No Pertinent History ENT History: Other Cardiac History: No Pertinent History Respiratory History: No Pertinent History Endocrine Medical History: No Pertinent History Musculoskelatal History: Other GI Medical History: No Pertinent History History: Other Pyscho-Social History: Anxiety, Depression Reproductive Disorders: No Pertinent History Comment: IBS. ACL TEAR ON RIGHT KNEE AT AGE 14 WITH TWO SURGERIES. - Female History Hx Last Menstrual Period: unsure Are you now?: No - Past Surgical History Past Surgical History: Yes Neuro Surgical History: No Pertinent History Cardiac History: No Pertinent History Respiratory Surgery: No Pertinent History GI Surgical History: Cholecystectomy Genitourinary Surgical Hx: No Pertinent History Musculskeletal Surgical Hx: Orthopedic Surgery Female Surgical History: No Pertinent History Other Surgical History: knee - tonsils - adenoids - tubes in ears. nicole - Social History Smoking Status: Current every day smoker How long have you smoked: 13 Exposure to second hand smoke: Yes Alcohol: Occasionally Drug Use: marijuana - Physical Exam Vital Signs: Vital Signs - 24 hr Temp Pulse Resp BP Pulse Ox 04/04/21 07:00 98.1 F 88 16 132/88 98 04/04/21 04:00 98.1 F 87 18 132/82 94 L 04/04/21 00:00 97.8 F 90 16 115/79 96 04/03/21 19:52 98.4 F 78 18 157/84 96 04/03/21 18:09 98.4 F 78 18 157/84 96 04/03/21 17:50 96 04/03/21 17:42 98.4 F 78 16 157/84 96 04/03/21 17:39 98 04/03/21 16:09 80 16 123/58 98 04/03/21 14:27 64 20 173/93 98 04/03/21 13:33 96.0 F 56 L 16 158/98 98 04/03/21 12:45 68 16 152/85 98 04/03/21 11:45 96.0 F 80 16 159/97 99 General Appearance: no apparent distress, alert Respiratory Exam: normal breath sounds, lungs clear, No respiratory distress Cardiovascular Exam: regular rate/rhythm, normal heart sounds, normal peripheral pulses Gastrointestinal/Abdomen Exam: soft, normal bowel sounds, No tenderness, No mass Extremity Exam: normal inspection, normal range of motion, pelvis stable Skin Exam: normal color, warm, dry, No rash Results - Labs Lab/Micro Results: Lab Results-Last 24 Hours 04/03/21 04/03/21 04/03/21 Range/Units 12:45 12:45 12:45 WBC 13.3 H (4.0-10.5) K/mm3 RBC 5.96 H (4.1-5.4) M/mm3 Hgb 18.6 H (12.0-16.0) gm/dl Hct 56.3 H (35-47) % MCV 94.5 (78-100) fl MCH 31.2 (26-32) pg MCHC 33.0 (32-36) g/dl RDW 13.2 (11.5-14.0) % Plt Count 354 (150-450) K/mm3 MPV 9.8 (7.5-11.0) fl Gran % 82.3 H (36.0-66.0) % Eos # (Auto) 0.04 (0-0.5) Absolute Lymphs (auto) 1.82 (1.0-4.6) Absolute Monos (auto) 0.47 (0.0-1.3) Lymphocytes % 13.7 L (24.0-44.0) % Monocytes % 3.5 (0.0-12.0) % Eosinophils % 0.3 (0.00-5.0) % Basophils % 0.2 (0.0-0.4) % Absolute Granulocytes 10.90 H (1.4-6.9) Basophils # 0.03 (0-0.4) Sodium 137 (137-145) mmol/L Potassium 3.9 (3.5-5.1) mmol/L Chloride 106 (98-107) mmol/L Carbon Dioxide 21 L (22-30) mmol/L Anion Gap 15.2 H (5-15) MEQ/L BUN 4 L (7-17) mg/dL Creatinine 0.59 (0.52-1.04) mg/dL Estimated GFR > 60.0 ML/MIN Glucose 116 H (74-106) mg/dL Calcium 9.2 (8.4-10.2) mg/dL Total Bilirubin 0.60 (0.2-1.3) mg/dL AST 28 (14-36) U/L ALT 20 (0-35) U/L Alkaline Phosphatase 127 H (38-126) U/L Troponin I (0.000-0.034) ng/mL Serum Total Protein 8.1 (6.3-8.2) g/dL Albumin 4.5 (3.5-5.0) g/dL Lipase 75 (23-300) U/L Urine Color YELLOW (YELLOW) Urine Appearance SLIGHTLY CLOUDY (CLEAR) Urine pH 8.0 (5-6) Ur Specific [place] 1.020 (1.005-1.025) Urine Protein 30 (Negative) Urine Ketones NEGATIVE (NEGATIVE) Urine Blood NEGATIVE (0-5) Ajay/ul Urine Nitrite NEGATIVE (NEGATIVE) Urine Bilirubin NEGATIVE (NEGATIVE) Urine Urobilinogen NEGATIVE (0-1) mg/dL Ur Leukocyte Esterase NEGATIVE (NEGATIVE) Urine WBC (Auto) 0-2 (0-5) /HPF Urine RBC (Auto) 3-5 (0-2) /HPF U Epithel Cells (Auto) RARE (FEW) /HPF Urine Bacteria (Auto) RARE (NEGATIVE) /HPF Urine Mucus (Auto) SLIGHT (NEGATIVE) /HPF Urine Culture Reflexed NO (NO) Urine Glucose NEGATIVE (NEGATIVE) mg/dL Urine HCG, Qual (Negative) Urine Opiates Level (NEGATIVE) Ur Methadone (NEGATIVE) Urine Barbiturates (NEGATIVE) Ur Phencyclidine (PCP) (NEGATIVE) Urine Amphetamine (NEGATIVE) U Benzodiazepine Level (NEGATIVE) Urine Cocaine (NEGATIVE) Urine Marijuana (THC) (NEGATIVE) SARS-CoV-2 (PCR) (NEGATIVE) 04/03/21 04/03/21 04/03/21 Range/Units 12:45 12:45 15:45 WBC (4.0-10.5) K/mm3 RBC (4.1-5.4) M/mm3 Hgb (12.0-16.0) gm/dl Hct (35-47) % MCV (78-100) fl MCH (26-32) pg MCHC (32-36) g/dl RDW (11.5-14.0) % Plt Count (150-450) K/mm3 MPV (7.5-11.0) fl Gran % (36.0-66.0) % Eos # (Auto) (0-0.5) Absolute Lymphs (auto) (1.0-4.6) Absolute Monos (auto) (0.0-1.3) Lymphocytes % (24.0-44.0) % Monocytes % (0.0-12.0) % Eosinophils % (0.00-5.0) % Basophils % (0.0-0.4) % Absolute Granulocytes (1.4-6.9) Basophils # (0-0.4) Sodium (137-145) mmol/L Potassium (3.5-5.1) mmol/L Chloride (98-107) mmol/L Carbon Dioxide (22-30) mmol/L Anion Gap (5-15) MEQ/L BUN (7-17) mg/dL Creatinine (0.52-1.04) mg/dL Estimated GFR ML/MIN Glucose (74-106) mg/dL Calcium (8.4-10.2) mg/dL Total Bilirubin (0.2-1.3) mg/dL AST (14-36) U/L ALT (0-35) U/L Alkaline Phosphatase (38-126) U/L Troponin I < 0.012 < 0.012 (0.000-0.034) ng/mL Serum Total Protein (6.3-8.2) g/dL Albumin (3.5-5.0) g/dL Lipase (23-300) U/L Urine Color (YELLOW) Urine Appearance (CLEAR) Urine pH (5-6) Ur Specific [place] (1.005-1.025) Urine Protein (Negative) Urine Ketones (NEGATIVE) Urine Blood (0-5) Ajay/ul Urine Nitrite (NEGATIVE) Urine Bilirubin (NEGATIVE) Urine Urobilinogen (0-1) mg/dL Ur Leukocyte Esterase (NEGATIVE) Urine WBC (Auto) (0-5) /HPF Urine RBC (Auto) (0-2) /HPF U Epithel Cells (Auto) (FEW) /HPF Urine Bacteria (Auto) (NEGATIVE) /HPF Urine Mucus (Auto) (NEGATIVE) /HPF Urine Culture Reflexed (NO) Urine Glucose (NEGATIVE) mg/dL Urine HCG, Qual NEGATIVE (Negative) Urine Opiates Level (NEGATIVE) Ur Methadone (NEGATIVE) Urine Barbiturates (NEGATIVE) Ur Phencyclidine (PCP) (NEGATIVE) Urine Amphetamine (NEGATIVE) U Benzodiazepine Level (NEGATIVE) Urine Cocaine (NEGATIVE) Urine Marijuana (THC) (NEGATIVE) SARS-CoV-2 (PCR) (NEGATIVE) 04/03/21 04/03/21 04/04/21 Range/Units 15:54 Unknown 04:35 WBC 13.8 H (4.0-10.5) K/mm3 RBC 5.45 H (4.1-5.4) M/mm3 Hgb 17.1 H (12.0-16.0) gm/dl Hct 52.7 H (35-47) % MCV 96.7 (78-100) fl MCH 31.4 (26-32) pg MCHC 32.4 (32-36) g/dl RDW 13.1 (11.5-14.0) % Plt Count 300 (150-450) K/mm3 MPV 9.9 (7.5-11.0) fl Gran % 67.3 H (36.0-66.0) % Eos # (Auto) 0.11 (0-0.5) Absolute Lymphs (auto) 3.46 (1.0-4.6) Absolute Monos (auto) 0.91 (0.0-1.3) Lymphocytes % 25.1 (24.0-44.0) % Monocytes % 6.6 (0.0-12.0) % Eosinophils % 0.8 (0.00-5.0) % Basophils % 0.2 (0.0-0.4) % Absolute Granulocytes 9.25 H (1.4-6.9) Basophils # 0.03 (0-0.4) Sodium (137-145) mmol/L Potassium (3.5-5.1) mmol/L Chloride (98-107) mmol/L Carbon Dioxide (22-30) mmol/L Anion Gap (5-15) MEQ/L BUN (7-17) mg/dL Creatinine (0.52-1.04) mg/dL Estimated GFR ML/MIN Glucose (74-106) mg/dL Calcium (8.4-10.2) mg/dL Total Bilirubin (0.2-1.3) mg/dL AST (14-36) U/L ALT (0-35) U/L Alkaline Phosphatase (38-126) U/L Troponin I (0.000-0.034) ng/mL Serum Total Protein (6.3-8.2) g/dL Albumin (3.5-5.0) g/dL Lipase (23-300) U/L Urine Color (YELLOW) Urine Appearance (CLEAR) Urine pH (5-6) Ur Specific [place] (1.005-1.025) Urine Protein (Negative) Urine Ketones (NEGATIVE) Urine Blood (0-5) Ajay/ul Urine Nitrite (NEGATIVE) Urine Bilirubin (NEGATIVE) Urine Urobilinogen (0-1) mg/dL Ur Leukocyte Esterase (NEGATIVE) Urine WBC (Auto) (0-5) /HPF Urine RBC (Auto) (0-2) /HPF U Epithel Cells (Auto) (FEW) /HPF Urine Bacteria (Auto) (NEGATIVE) /HPF Urine Mucus (Auto) (NEGATIVE) /HPF Urine Culture Reflexed (NO) Urine Glucose (NEGATIVE) mg/dL Urine HCG, Qual (Negative) Urine Opiates Level NEGATIVE (NEGATIVE) Ur Methadone NEGATIVE (NEGATIVE) Urine Barbiturates NEGATIVE (NEGATIVE) Ur Phencyclidine (PCP) NEGATIVE (NEGATIVE) Urine Amphetamine NEGATIVE (NEGATIVE) U Benzodiazepine Level NEGATIVE (NEGATIVE) Urine Cocaine NEGATIVE (NEGATIVE) Urine Marijuana (THC) POSITIVE (NEGATIVE) SARS-CoV-2 (PCR) NEGATIVE (NEGATIVE) - Radiology Impressions Radiology Exams & Impressions: Radiology Procedures Category Date Time Status ABDOMEN AND PELVIS W CONTRAST [CT] Stat Exams 04/03/21 12:37 Completed Assessment/Plan (1) Intractable abdominal pain Current Visit: Yes Status: Acute Assessment & Plan: resolved, home today and will f/u with her GI, recently started new med Code(s): R10.9 - UNSPECIFIED ABDOMINAL PAIN (2) Intractable nausea and vomiting Current Visit: Yes Status: Acute Code(s): R11.2 - NAUSEA WITH VOMITING, UNSPECIFIED (3) Irritable bowel syndrome (IBS) Current Visit: Yes Status: Acute Hospital Summary - Vitals & Intake/Output Vital Signs: Vital Signs Temperature 98.1 F 04/04/21 07:00 Pulse Rate 88 04/04/21 07:00 Respiratory Rate 16 04/04/21 07:00 Blood Pressure 132/88 04/04/21 07:00 O2 Sat by Pulse Oximetry 98 04/04/21 07:00 Intake & Output: Intake & Output 04/01/21 04/02/21 04/03/21 04/04/21 11:59 11:59 11:59 11:59 Intake Total 1673 Balance 1673 Weight 80 kg 83 kg - Lab Result Diagrams: 04/04/21 04:35 04/03/21 12:45 Lab Results-Last 24 Hrs: Lab Results-Last 24 Hours 04/03/21 04/03/21 04/03/21 Range/Units 12:45 12:45 12:45 WBC 13.3 H (4.0-10.5) K/mm3 RBC 5.96 H (4.1-5.4) M/mm3 Hgb 18.6 H (12.0-16.0) gm/dl Hct 56.3 H (35-47) % MCV 94.5 (78-100) fl MCH 31.2 (26-32) pg MCHC 33.0 (32-36) g/dl RDW 13.2 (11.5-14.0) % Plt Count 354 (150-450) K/mm3 MPV 9.8 (7.5-11.0) fl Gran % 82.3 H (36.0-66.0) % Eos # (Auto) 0.04 (0-0.5) Absolute Lymphs (auto) 1.82 (1.0-4.6) Absolute Monos (auto) 0.47 (0.0-1.3) Lymphocytes % 13.7 L (24.0-44.0) % Monocytes % 3.5 (0.0-12.0) % Eosinophils % 0.3 (0.00-5.0) % Basophils % 0.2 (0.0-0.4) % Absolute Granulocytes 10.90 H (1.4-6.9) Basophils # 0.03 (0-0.4) Sodium 137 (137-145) mmol/L Potassium 3.9 (3.5-5.1) mmol/L Chloride 106 (98-107) mmol/L Carbon Dioxide 21 L (22-30) mmol/L Anion Gap 15.2 H (5-15) MEQ/L BUN 4 L (7-17) mg/dL Creatinine 0.59 (0.52-1.04) mg/dL Estimated GFR > 60.0 ML/MIN Glucose 116 H (74-106) mg/dL Calcium 9.2 (8.4-10.2) mg/dL Total Bilirubin 0.60 (0.2-1.3) mg/dL AST 28 (14-36) U/L ALT 20 (0-35) U/L Alkaline Phosphatase 127 H (38-126) U/L Troponin I (0.000-0.034) ng/mL Serum Total Protein 8.1 (6.3-8.2) g/dL Albumin 4.5 (3.5-5.0) g/dL Lipase 75 (23-300) U/L Urine Color YELLOW (YELLOW) Urine Appearance SLIGHTLY CLOUDY (CLEAR) Urine pH 8.0 (5-6) Ur Specific [place] 1.020 (1.005-1.025) Urine Protein 30 (Negative) Urine Ketones NEGATIVE (NEGATIVE) Urine Blood NEGATIVE (0-5) Ajay/ul Urine Nitrite NEGATIVE (NEGATIVE) Urine Bilirubin NEGATIVE (NEGATIVE) Urine Urobilinogen NEGATIVE (0-1) mg/dL Ur Leukocyte Esterase NEGATIVE (NEGATIVE) Urine WBC (Auto) 0-2 (0-5) /HPF Urine RBC (Auto) 3-5 (0-2) /HPF U Epithel Cells (Auto) RARE (FEW) /HPF Urine Bacteria (Auto) RARE (NEGATIVE) /HPF Urine Mucus (Auto) SLIGHT (NEGATIVE) /HPF Urine Culture Reflexed NO (NO) Urine Glucose NEGATIVE (NEGATIVE) mg/dL Urine HCG, Qual (Negative) Urine Opiates Level (NEGATIVE) Ur Methadone (NEGATIVE) Urine Barbiturates (NEGATIVE) Ur Phencyclidine (PCP) (NEGATIVE) Urine Amphetamine (NEGATIVE) U Benzodiazepine Level (NEGATIVE) Urine Cocaine (NEGATIVE) Urine Marijuana (THC) (NEGATIVE) SARS-CoV-2 (PCR) (NEGATIVE) 04/03/21 04/03/21 04/03/21 Range/Units 12:45 12:45 15:45 WBC (4.0-10.5) K/mm3 RBC (4.1-5.4) M/mm3 Hgb (12.0-16.0) gm/dl Hct (35-47) % MCV (78-100) fl MCH (26-32) pg MCHC (32-36) g/dl RDW (11.5-14.0) % Plt Count (150-450) K/mm3 MPV (7.5-11.0) fl Gran % (36.0-66.0) % Eos # (Auto) (0-0.5) Absolute Lymphs (auto) (1.0-4.6) Absolute Monos (auto) (0.0-1.3) Lymphocytes % (24.0-44.0) % Monocytes % (0.0-12.0) % Eosinophils % (0.00-5.0) % Basophils % (0.0-0.4) % Absolute Granulocytes (1.4-6.9) Basophils # (0-0.4) Sodium (137-145) mmol/L Potassium (3.5-5.1) mmol/L Chloride (98-107) mmol/L Carbon Dioxide (22-30) mmol/L Anion Gap (5-15) MEQ/L BUN (7-17) mg/dL Creatinine (0.52-1.04) mg/dL Estimated GFR ML/MIN Glucose (74-106) mg/dL Calcium (8.4-10.2) mg/dL Total Bilirubin (0.2-1.3) mg/dL AST (14-36) U/L ALT (0-35) U/L Alkaline Phosphatase (38-126) U/L Troponin I < 0.012 < 0.012 (0.000-0.034) ng/mL Serum Total Protein (6.3-8.2) g/dL Albumin (3.5-5.0) g/dL Lipase (23-300) U/L Urine Color (YELLOW) Urine Appearance (CLEAR) Urine pH (5-6) Ur Specific [place] (1.005-1.025) Urine Protein (Negative) Urine Ketones (NEGATIVE) Urine Blood (0-5) Ajay/ul Urine Nitrite (NEGATIVE) Urine Bilirubin (NEGATIVE) Urine Urobilinogen (0-1) mg/dL Ur Leukocyte Esterase (NEGATIVE) Urine WBC (Auto) (0-5) /HPF Urine RBC (Auto) (0-2) /HPF U Epithel Cells (Auto) (FEW) /HPF Urine Bacteria (Auto) (NEGATIVE) /HPF Urine Mucus (Auto) (NEGATIVE) /HPF Urine Culture Reflexed (NO) Urine Glucose (NEGATIVE) mg/dL Urine HCG, Qual NEGATIVE (Negative) Urine Opiates Level (NEGATIVE) Ur Methadone (NEGATIVE) Urine Barbiturates (NEGATIVE) Ur Phencyclidine (PCP) (NEGATIVE) Urine Amphetamine (NEGATIVE) U Benzodiazepine Level (NEGATIVE) Urine Cocaine (NEGATIVE) Urine Marijuana (THC) (NEGATIVE) SARS-CoV-2 (PCR) (NEGATIVE) 04/03/21 04/03/21 04/04/21 Range/Units 15:54 Unknown 04:35 WBC 13.8 H (4.0-10.5) K/mm3 RBC 5.45 H (4.1-5.4) M/mm3 Hgb 17.1 H (12.0-16.0) gm/dl Hct 52.7 H (35-47) % MCV 96.7 (78-100) fl MCH 31.4 (26-32) pg MCHC 32.4 (32-36) g/dl RDW 13.1 (11.5-14.0) % Plt Count 300 (150-450) K/mm3 MPV 9.9 (7.5-11.0) fl Gran % 67.3 H (36.0-66.0) % Eos # (Auto) 0.11 (0-0.5) Absolute Lymphs (auto) 3.46 (1.0-4.6) Absolute Monos (auto) 0.91 (0.0-1.3) Lymphocytes % 25.1 (24.0-44.0) % Monocytes % 6.6 (0.0-12.0) % Eosinophils % 0.8 (0.00-5.0) % Basophils % 0.2 (0.0-0.4) % Absolute Granulocytes 9.25 H (1.4-6.9) Basophils # 0.03 (0-0.4) Sodium (137-145) mmol/L Potassium (3.5-5.1) mmol/L Chloride (98-107) mmol/L Carbon Dioxide (22-30) mmol/L Anion Gap (5-15) MEQ/L BUN (7-17) mg/dL Creatinine (0.52-1.04) mg/dL Estimated GFR ML/MIN Glucose (74-106) mg/dL Calcium (8.4-10.2) mg/dL Total Bilirubin (0.2-1.3) mg/dL AST (14-36) U/L ALT (0-35) U/L Alkaline Phosphatase (38-126) U/L Troponin I (0.000-0.034) ng/mL Serum Total Protein (6.3-8.2) g/dL Albumin (3.5-5.0) g/dL Lipase (23-300) U/L Urine Color (YELLOW) Urine Appearance (CLEAR) Urine pH (5-6) Ur Specific [place] (1.005-1.025) Urine Protein (Negative) Urine Ketones (NEGATIVE) Urine Blood (0-5) Ajay/ul Urine Nitrite (NEGATIVE) Urine Bilirubin (NEGATIVE) Urine Urobilinogen (0-1) mg/dL Ur Leukocyte Esterase (NEGATIVE) Urine WBC (Auto) (0-5) /HPF Urine RBC (Auto) (0-2) /HPF U Epithel Cells (Auto) (FEW) /HPF Urine Bacteria (Auto) (NEGATIVE) /HPF Urine Mucus (Auto) (NEGATIVE) /HPF Urine Culture Reflexed (NO) Urine Glucose (NEGATIVE) mg/dL Urine HCG, Qual (Negative) Urine Opiates Level NEGATIVE (NEGATIVE) Ur Methadone NEGATIVE (NEGATIVE) Urine Barbiturates NEGATIVE (NEGATIVE) Ur Phencyclidine (PCP) NEGATIVE (NEGATIVE) Urine Amphetamine NEGATIVE (NEGATIVE) U Benzodiazepine Level NEGATIVE (NEGATIVE) Urine Cocaine NEGATIVE (NEGATIVE) Urine Marijuana (THC) POSITIVE (NEGATIVE) SARS-CoV-2 (PCR) NEGATIVE (NEGATIVE) - Radiology Exams Ordered Rad Exams-Entire Visit: Radiology Procedures Category Date Time Status ABDOMEN AND PELVIS W CONTRAST [CT] Stat Exams 04/03/21 12:37 Completed - Procedures and Test Procedures and Tests throughout Hospitalization: Therapy Orders & Screens 04/03/21 18:18 Smoking Cessation Education ONCE Comment: Diagnosis: intractable abdominal pain,n/v Smoking Status: Current every day smoker How long have you smoked: 13 Have you smoked in the past 12 months: Yes Approximately how many cigarettes per day: 15 Do you dip or chew tobacco: No - Discharge Disposition: Home, Self-Care Condition: Stable Prescriptions: Continue Promethazine HCl 25 mg [Phenergan 25 mg] 25 mg PO Q8H PRN PRN #10 tablet PRN Reason: Vomiting Ondansetron ODT 4 MG [Zofran Odt 4 mg] 1 ea PO QIDPRN PRN PRN Reason: n/v Amitriptyline HCl 10 mg [Elavil 10 mg] 1 ea PO HS Trazodone HCl 50 mg PO HSPRN PRN PRN Reason: sleep Follow up with: SAHRA GALVEZ MD [Primary Care Provider] -
[2021-04-04] MEDS: Carafate 1 GM PO SCH (08:31)
[2021-04-04 15:28] LABS: ALBUMIN 3.5 g/dL (3.5-5.0); ALKALINE PHOSPHATASE 99 U/L (38-126); ANION GAP 12.7 MEQ/L (5-15); BLOOD UREA NITROGEN 4 mg/dL (7-17); CHLORIDE 104 mmol/L (98-107); Calcium 8.5 mg/dL (8.4-10.2); Carbon Dioxide 25 mmol/L (22-30); Creatinine 1 0.71 mg/dL (0.52-1.04); EST GLOMERULAR FILTRATION RATE > 60.0 ML/MIN; Glucose 93 mg/dL (74-106); Potassium 4.3 mmol/L (3.5-5.1); SGOT/AST 22 U/L (14-36); SGPT/ALT 15 U/L (0-35); SODIUM 137 mmol/L (137-145); Total Protein 6.6 g/dL (6.3-8.2)
[2021-04-04] MEDS ORDERED: NICODERM CQ 14 MG TOP SCH (22:00)
== END 2021-04-04 09:25 | disposition home or self-care (01) ==
LOC: ED 11:32 → MED SURG 17:42
PROVIDERS: ADMIT Family Medicine; ATTEND Family Medicine
DX: R10.13 Epigastric pain (principal); K58.9 Irritable bowel syndrome, unspecified; R11.2 Nausea with vomiting, unspecified; Z79.899 Other long term (current) drug therapy; D72.829 Elevated white blood cell count, unspecified; Z20.828 Contact with and (suspected) exposure to other viral communicable diseases
CPT/HCPCS: 36000; 36415; 74177; 80053; 80307; 81001; 83690; 84484; 84703; 85025; 96360; 96374; 96375; 96376; 99285; G0378; U0003; J1170; J2270; J2405; A9270-GY

== ENCOUNTER 2021-04-06 13:08 | Emergency (ER) | payer OTHER ==
--- NOTE | 2021-04-06 13:10 | ERPHSYRPT ---
- History of Present Illness Time Seen by Provider: 04/06/21 13:10 Historian: patient Exam Limitations: no limitations Physician History: This is an obese 31-year-old white female who has been diagnosed in the past with intractable, recurrent vomiting and epigastric abdominal pain. She is a patient of Dr. Galvez. She also sees Dr. Bullard in [facility] for her gastroenterology services. She has been told she has cyclic vomiting syndrome. She also has been told that she has irritable bowel syndrome. She has been diagnosed with gastritis in the past. She has had a cholecystectomy in the past. She occasionally uses marijuana. And she has anxiety issues. Recently, her GI specialist in [facility] referred her to a different gastroenterology specialist out of [facility]. She saw that individual last week. She reports that she was started on a new medication. She does not know the name of that medication offhand. Patient was seen in this emergency department and admitted overnight been discharged approximately 24 hours later for similar symptoms. She attempted using Zofran this morning and then oral Phenergan. She took these around 8 and 830 respectively. They are not helping and she vomited them up. The CAT scan of the abdomen and pelvis without contrast from 04/03/2021 did not show any acute findings. Timing/Duration: today Quality: aching Abdominal Pain Onset Location: epigastric Pain Radiation: no radiation Severity of Pain-Max: mild Severity of Pain-Current: mild Modifying Factors: Improves With: vomiting Associated Symptoms: nausea, vomiting Previous symptoms: same symptoms as today, recently seen, recent hospitalization, recently treated Allergies/Adverse Reactions: cephalexin monohydrate [From [employer]] Allergy (Mild, Verified 04/06/21 13:26) Hives Home Medications: Amitriptyline HCl 10 mg [Elavil 10 mg] 1 ea PO HS 04/03/21 [History] Ondansetron ODT 4 MG [Zofran Odt 4 mg] 1 ea PO QIDPRN PRN 04/03/21 [Hi story] Trazodone HCl 50 mg PO HSPRN PRN 04/03/21 [History] Hx Tetanus, Diphtheria Vaccination/Date Given: No Hx Influenza Vaccination/Date Given: No Hx Pneumococcal Vaccination/Date Given: No Travel Risk - International Travel Have you traveled outside of the country in past 3 weeks: No - Coronavirus Screening Are you exhibiting any of the following symptoms?: No Close contact with a COVID-19 positive Pt in past 14-21 Days: No - Vaccine Status Have you recieved a Covid-19 vaccination: No - Review of Systems Constitutional: No Symptoms Eyes: No Symptoms Ears, Nose, & Throat: No Symptoms Respiratory: No Symptoms Cardiac: No Symptoms Abdominal/Gastrointestinal: Abdominal Pain, Nausea, Vomiting Genitourinary Symptoms: No Symptoms Musculoskeletal: No Symptoms Skin: No Symptoms Neurological: No Symptoms Psychological: No Symptoms Endocrine: No Symptoms Hematologic/Lymphatic: No Symptoms Immunological/Allergic: No Symptoms All Other Systems: Reviewed and Negative - Past Medical History Pertinent Past Medical History: Yes Neurological History: No Pertinent History ENT History: Other Cardiac History: No Pertinent History Respiratory History: No Pertinent History Endocrine Medical History: No Pertinent History Musculoskeletal History: Other GI Medical History: No Pertinent History History: Other Psycho-Social History: Anxiety, Depression Female Reproductive Disorders: No Pertinent History Other Medical History: IBS. ACL TEAR ON RIGHT KNEE AT AGE 14 WITH TWO SURGERIES. - Past Surgical History Past Surgical History: Yes Neuro Surgical History: No Pertinent History Cardiac: No Pertinent History Respiratory: No Pertinent History Gastrointestinal: Cholecystectomy Genitourinary: No Pertinent History Musculoskeletal: Orthopedic Surgery Female Surgical History: No Pertinent History Other Surgical History: knee - tonsils - adenoids - tubes in ears. nicole - Social History Smoking Status: Current every day smoker How long have you smoked: 13 Exposure to second hand smoke: Yes Drug Use: marijuana Patient Lives Alone: No - Nursing Vital Signs Nursing Vital Signs: Initial Vital Signs Temperature 97.8 F 04/06/21 13:20 Pulse Rate 102 H 04/06/21 13:20 Respiratory Rate 16 04/06/21 13:20 Blood Pressure 133/88 04/06/21 13:20 O2 Sat by Pulse Oximetry 96 04/06/21 13:20 Pain Scale Pain Intensity 7 - Physical Exam General Appearance: no apparent distress, alert, anxiety, obese Eye Exam: PERRL/EOMI, eyes nml inspection Ears, Nose, Throat Exam: normal ENT inspection, moist mucous membranes Neck Exam: normal inspection, non-tender, supple, full range of motion Respiratory Exam: normal breath sounds, lungs clear, airway intact, No chest tenderness, No respiratory distress Cardiovascular Exam: regular rate/rhythm, normal heart sounds, normal peripheral pulses Gastrointestinal/Abdomen Exam: soft, normal bowel sounds, tenderness (Mild epigastric to palpation), No guarding, No rebound Pelvic Exam: not done Rectal Exam: not done Back Exam: normal inspection, normal range of motion, No CVA tenderness, No vertebral tenderness Extremity Exam: normal inspection, normal range of motion, pelvis stable Neurologic Exam: alert, oriented x 3, cooperative, 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 tested, normal mood/affect, nml cerebellar function, nml station & gait, sensation nml Skin Exam: normal color, warm, dry Lymphatic Exam: No adenopathy SpO2 Interpretation: normal O2 Delivery: Room Air - Course Nursing assessment & vital signs reviewed: Yes Ordered Tests: Active Orders 24 hr Category Date Time Status IV Insertion STAT Care 04/06/21 13:30 Active AMYLASE Stat Lab 04/06/21 13:38 Completed CBC W DIFF Stat Lab 04/06/21 13:38 Completed CMP Stat Lab 04/06/21 13:38 Completed HCG,QUALITATIVE URINE Stat Lab 04/06/21 13:34 Completed LIPASE Stat Lab 04/06/21 13:38 Completed Lactic Acid Stat Lab 04/06/21 13:41 Completed UA W/RFX UR CULTURE Stat Lab 04/06/21 13:34 Completed Medication Summary Generic Name Dose Route Start Last Admin Trade Name Freq PRN Reason Stop Dose Admin Sodium Chloride 1,000 mls @ 999 mls/hr 04/06/21 13:30 04/06/21 13:46 Sodium Chloride 0.9% 1000 Ml IV 04/06/21 14:30 999 mls/hr .Q1H1M STA Administration Discontinued Medications Generic Name Dose Route Start Last Admin Trade Name Freq PRN Reason Stop Dose Admin Famotidine 40 mg 04/06/21 13:30 04/06/21 13:46 Pepcid 20 Mg Vial IV 04/06/21 13:31 40 mg STAT ONE Administration Famotidine Confirm 04/06/21 13:43 Pepcid 20 Mg Vial Administered 04/06/21 13:44 Dose 40 mg IV .STK-MED ONE Hydromorphone HCl 1 mg 04/06/21 14:04 Hydromorphone 1 Mg/Ml Injection IV 04/06/21 14:05 STAT ONE Hydromorphone HCl Confirm 04/06/21 14:16 Hydromorphone 1 Mg/Ml Injection Administered 04/06/21 14:17 Dose 1 mg .ROUTE .STK-MED ONE Sodium Chloride Confirm 04/06/21 13:43 Sodium Chloride 0.9% 1000 Ml Administered 04/06/21 13:44 Dose 1,000 mls @ ud .ROUTE .STK-MED ONE Sodium Chloride Confirm 04/06/21 14:16 Sodium Chloride 0.9% 1000 Ml Administered 04/06/21 14:17 Dose 1,000 mls @ ud .ROUTE .STK-MED ONE Ondansetron HCl 4 mg 04/06/21 13:30 04/06/21 13:46 Zofran 4 Mg/2 Ml Vial IV 04/06/21 13:31 4 mg STAT ONE Administration Ondansetron HCl Confirm 04/06/21 13:43 Zofran 4 Mg/2 Ml Vial Administered 04/06/21 13:44 Dose 4 mg .ROUTE .STK-MED ONE Prochlorperazine Edisylate 10 mg 04/06/21 14:04 Compazine 10 Mg/2 Ml IV 04/06/21 14:05 STAT ONE Prochlorperazine Edisylate Confirm 04/06/21 14:16 Compazine 10 Mg/2 Ml Administered 04/06/21 14:17 Dose 10 mg .ROUTE .STK-MED ONE Lab/Rad Data: Laboratory Result Diagrams 04/06/21 13:38 04/06/21 13:38 Laboratory Results 04/06/21 04/06/21 04/06/21 Range/Units 13:41 13:38 13:38 WBC 10.7 H (4.0-10.5) K/mm3 RBC 5.69 H (4.1-5.4) M/mm3 Hgb 17.9 H (12.0-16.0) gm/dl Hct 53.7 H (35-47) % MCV 94.4 (78-100) fl MCH 31.5 (26-32) pg MCHC 33.3 (32-36) g/dl RDW 12.8 (11.5-14.0) % Plt Count 311 (150-450) K/mm3 MPV 9.5 (7.5-11.0) fl Gran % 79.1 H (36.0-66.0) % Eos # (Auto) 0.08 (0-0.5) Absolute Lymphs (auto) 1.62 (1.0-4.6) Absolute Monos (auto) 0.51 (0.0-1.3) Lymphocytes % 15.1 L (24.0-44.0) % Monocytes % 4.8 (0.0-12.0) % Eosinophils % 0.7 (0.00-5.0) % Basophils % 0.3 (0.0-0.4) % Absolute Granulocytes 8.47 H (1.4-6.9) Basophils # 0.03 (0-0.4) Sodium 136 L (137-145) mmol/L Potassium 3.9 (3.5-5.1) mmol/L Chloride 103 (98-107) mmol/L Carbon Dioxide 24 (22-30) mmol/L Anion Gap 13.3 (5-15) MEQ/L BUN 5 L (7-17) mg/dL Creatinine 0.71 (0.52-1.04) mg/dL Estimated GFR > 60.0 ML/MIN Glucose 112 H (74-106) mg/dL Lactic Acid 1.0 (0.4-2.0) Calcium 8.9 (8.4-10.2) mg/dL Total Bilirubin 0.50 (0.2-1.3) mg/dL AST 22 (14-36) U/L ALT 17 (0-35) U/L Alkaline Phosphatase 101 (38-126) U/L Serum Total Protein 7.4 (6.3-8.2) g/dL Albumin 4.0 (3.5-5.0) g/dL Amylase 50 (30-110) U/L Lipase 44 (23-300) U/L Urine Color (YELLOW) Urine Appearance (CLEAR) Urine pH (5-6) Ur Specific Custer (1.005-1.025) Urine Protein (Negative) Urine Ketones (NEGATIVE) Urine Blood (0-5) Ajay/ul Urine Nitrite (NEGATIVE) Urine Bilirubin (NEGATIVE) Urine Urobilinogen (0-1) mg/dL Ur Leukocyte Esterase (NEGATIVE) Urine WBC (Auto) (0-5) /HPF Urine RBC (Auto) (0-2) /HPF U Epithel Cells (Auto) (FEW) /HPF Urine Bacteria (Auto) (NEGATIVE) /HPF Urine Culture Reflexed (NO) Urine Glucose (NEGATIVE) mg/dL Urine HCG, Qual (Negative) 04/06/21 04/06/21 Range/Units 13:34 13:34 WBC (4.0-10.5) K/mm3 RBC (4.1-5.4) M/mm3 Hgb (12.0-16.0) gm/dl Hct (35-47) % MCV (78-100) fl MCH (26-32) pg MCHC (32-36) g/dl RDW (11.5-14.0) % Plt Count (150-450) K/mm3 MPV (7.5-11.0) fl Gran % (36.0-66.0) % Eos # (Auto) (0-0.5) Absolute Lymphs (auto) (1.0-4.6) Absolute Monos (auto) (0.0-1.3) Lymphocytes % (24.0-44.0) % Monocytes % (0.0-12.0) % Eosinophils % (0.00-5.0) % Basophils % (0.0-0.4) % Absolute Granulocytes (1.4-6.9) Basophils # (0-0.4) Sodium (137-145) mmol/L Potassium (3.5-5.1) mmol/L Chloride (98-107) mmol/L Carbon Dioxide (22-30) mmol/L Anion Gap (5-15) MEQ/L BUN (7-17) mg/dL Creatinine (0.52-1.04) mg/dL Estimated GFR ML/MIN Glucose (74-106) mg/dL Lactic Acid (0.4-2.0) Calcium (8.4-10.2) mg/dL Total Bilirubin (0.2-1.3) mg/dL AST (14-36) U/L ALT (0-35) U/L Alkaline Phosphatase (38-126) U/L Serum Total Protein (6.3-8.2) g/dL Albumin (3.5-5.0) g/dL Amylase (30-110) U/L Lipase (23-300) U/L Urine Color YELLOW (YELLOW) Urine Appearance SLIGHTLY CLOUDY (CLEAR) Urine pH 8.0 (5-6) Ur Specific Custer 1.016 (1.005-1.025) Urine Protein NEGATIVE (Negative) Urine Ketones NEGATIVE (NEGATIVE) Urine Blood NEGATIVE (0-5) Ajay/ul Urine Nitrite NEGATIVE (NEGATIVE) Urine Bilirubin NEGATIVE (NEGATIVE) Urine Urobilinogen NEGATIVE (0-1) mg/dL Ur Leukocyte Esterase NEGATIVE (NEGATIVE) Urine WBC (Auto) 3-5 (0-5) /HPF Urine RBC (Auto) 0-2 (0-2) /HPF U Epithel Cells (Auto) RARE (FEW) /HPF Urine Bacteria (Auto) RARE (NEGATIVE) /HPF Urine Culture Reflexed NO (NO) Urine Glucose NEGATIVE (NEGATIVE) mg/dL Urine HCG, Qual NEGATIVE (Negative) - Progress Progress: improved, pain not gone completely, re-examined Counseled pt/family regarding: lab results, diagnosis, need for follow-up - Departure Departure Disposition: Home Clinical Impression: Cyclical vomiting syndrome Condition: Stable Critical Care Time: No Referrals: SAHRA GALVEZ MD [Primary Care Provider] - Additional Instructions: Use Phenergan suppositories as prescribed. Drink plenty of clear liquids before you advance your diet. Avoid fatty greasy spicy foods. 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 Prescriptions: Promethazine HCl [Phenergan] 25 mg RC Q8H PRN PRN #10 supp.rect PRN Reason: Nausea/Vomiting
[2021-04-06 13:26] VITALS: O2SAT 96
[2021-04-06] MEDS ORDERED: Sodium Chloride 0.9% 1000 ML 1,000 ML IV STA (13:30)
[2021-04-06] MEDS ORDERED: Pepcid 20 MG VIAL IV ONE ×2 (13:30→13:43)
[2021-04-06] MEDS ORDERED: Zofran 4 MG/2 ML VIAL IV ONE (13:30)
[2021-04-06] MEDS ORDERED: Zofran 4 MG/2 ML VIAL ONE (13:43)
[2021-04-06] MEDS ORDERED: Sodium Chloride 0.9% 1000 ML 0 ML ONE (13:43)
[2021-04-06 13:45] LABS: Absolute Neutrophil Ct (ANC) 8.47 (1.4-6.9); BASOPHIL % 0.3 % (0.0-0.4); Basophil (Absolute #) 0.03 (0-0.4); Eosinophil % 0.7 % (0.00-5.0); Eosinophil (Absolute #) 0.08 (0-0.5); Hematocrit 53.7 % (35-47); Hemoglobin 17.9 gm/dl (12.0-16.0); Lymphocyte (Absolute #) 1.62 (1.0-4.6); Lymphocytes % 15.1 % (24.0-44.0); Mean Cell Volume 94.4 fl (78-100); Mean Corpuscular Hemoglobin 31.5 pg (26-32); Mean Corpuscular Hgb Concent. 33.3 g/dl (32-36); Mean Platelet Volume 9.5 fl (7.5-11.0); Monocyte (Absolute #) 0.51 (0.0-1.3); Monocytes % 4.8 % (0.0-12.0); Neutrophil % 79.1 % (36.0-66.0); Platelet Count 311 K/mm3 (150-450); Red Blood Count 5.69 M/mm3 (4.1-5.4); Red Cell Distribution Width 12.8 % (11.5-14.0); White Blood Count 10.7 K/mm3 (4.0-10.5)
[2021-04-06 13:50] LABS: Appearance SLIGHTLY CLOUDY (CLEAR); Bacteria RARE /HPF (NEGATIVE); Bilirubin NEGATIVE (NEGATIVE); Blood NEGATIVE Ery/ul (0-5); Epithelial Cells RARE /HPF (FEW); Glucose NEGATIVE (NEGATIVE); Ketones NEGATIVE (NEGATIVE); Leukocyte Esterase NEGATIVE (NEGATIVE); Nitrite NEGATIVE (NEGATIVE); Protein,Urine Dip NEGATIVE (Negative); RBC 0-2 /HPF (0-2); Specific Gravity 1.016 (1.005-1.025); Urobilinogen NEGATIVE mg/dL (0-1)
[2021-04-06 13:56] LABS: ALKALINE PHOSPHATASE 101 U/L (38-126); AMYLASE 50 U/L (30-110); ANION GAP 13.3 MEQ/L (5-15); BLOOD UREA NITROGEN 5 mg/dL (7-17); CHLORIDE 103 mmol/L (98-107); Calcium 8.9 mg/dL (8.4-10.2); Carbon Dioxide 24 mmol/L (22-30); Creatinine 1 0.71 mg/dL (0.52-1.04); EST GLOMERULAR FILTRATION RATE > 60.0 ML/MIN; Glucose 112 mg/dL (74-106); LIPASE 44 U/L (23-300); Potassium 3.9 mmol/L (3.5-5.1); SGOT/AST 22 U/L (14-36); SGPT/ALT 17 U/L (0-35); SODIUM 136 mmol/L (137-145); Total Protein 7.4 g/dL (6.3-8.2)
[2021-04-06] MEDS ORDERED: Hydromorphone 1 mg/ml Injection IV ONE (14:04)
[2021-04-06] MEDS ORDERED: Compazine 10 MG/2 ML IV ONE (14:04)
[2021-04-06] MEDS ORDERED: Sodium Chloride 0.9% 1000 ML 1,000 ML ONE (14:16)
[2021-04-06] MEDS ORDERED: Hydromorphone 1 mg/ml Injection ONE (14:16)
[2021-04-06] MEDS ORDERED: Compazine 10 MG/2 ML ONE (14:16)
[2021-04-06 14:26] VITALS: BP 108/74; PULSE 92
== END 2021-04-06 14:45 | disposition home or self-care (01) ==
LOC: ED 13:08
DX: R11.15 Cyclical vomiting syndrome unrelated to migraine (principal)
CPT/HCPCS: 36000; 36415; 80053; 81001; 82150; 83605; 83690; 84703; 85025; 96360; 96374; 96375; 99284; J1170; J2405

== ENCOUNTER 2021-04-08 06:11 | Emergency (ER) | payer OTHER ==
--- NOTE | 2021-04-08 06:42 | ERPHSYRPT ---
- History of Present Illness Historian: patient Exam Limitations: no limitations Patient Subjective Stated Complaint: pt states "The pain hasn't stopped. Its been bad since Friday." Triage Nursing Assessment: pt ambulated into the er; pt is axo x4; pt is tearful and crying; c/o vomiting since Friday; pt states "I've been vomiting since Friday and it hasn't stopped."; pt states hx IBS; c/o epigastric pain; c/o constant vomiting since 04/03/21; pt denies diarrhea; active bowel sounds in all quads; tenderness to epigastric region with palpitation; hypertension; pt denies fever Timing/Duration: other Activities at Onset: none (Chronic recurrent) Quality: aching, cramping Abdominal Pain Onset Location: RUQ, LUQ, epigastric Severity of Pain-Max: moderate Severity of Pain-Current: mild (Mild to moderate) Modifying Factors: Improves With: vomiting Associated Symptoms: loss of appetite, nausea, vomiting, No chest pain Previous symptoms: same symptoms as today, recently seen, recent hospitalization, recently treated Hx Tetanus, Diphtheria Vaccination/Date Given: Yes Hx Influenza Vaccination/Date Given: Yes Hx Pneumococcal Vaccination/Date Given: No <CHASTITY RUELAS - Last Filed: 04/08/21 06:45> <MARIALUISA PATEL - Last Filed: 04/08/21 07:57> - History of Present Illness Time Seen by Provider: 04/08/21 06:30 Physician History: This is an obese 31-year-old white female who has been diagnosed in the past with intractable recurrent vomiting and epigastric abdominal pain. This is a patient of Dr. Calderon. She also sees Dr. Bullard in [facility] for her given her gastroenterology services. She has been told she has cyclic vomiting syndrome she also has been told that she has irritable bowel syndrome. She has been diagnosed with gastritis in the past she has had a cholecystectomy in the past she occasionally uses marijuana and she has anxiety issues. Recently, her GI specialist in [facility] referred her to a different gastroenterology group out of [facility]. She saw that individual last week. She was started on a new medication which she does not recall the name of. Patient was seen in the emergency room yesterday and discharged from the hospital after being evaluated in this emergency room the day before that. A CAT scan of the abdomen pelvis without contrast was done 4 days ago which did not show any acute findings. Patient was told by me when I saw her in this emergency department on 04/06/2021, that she can always come to the emergency department to be evaluated and managed but that the management might not always include narcotic pain medicine or admission to the hospital. (CHASTITY RUELAS) Allergies/Adverse Reactions: cephalexin monohydrate [From [place]] Allergy (Mild, Verified 04/08/21 06:15) Hives Home Medications: Amitriptyline HCl 10 mg [Elavil 10 mg] 1 ea PO HS 04/03/21 [History] Ondansetron ODT 4 MG [Zofran Odt 4 mg] 1 ea PO QIDPRN PRN 04/03/21 [History] Trazodone HCl 100 mg PO HSPRN PRN 04/03/21 [History] Travel Risk - International Travel Have you traveled outside of the country in past 3 weeks: No - Coronavirus Screening Are you exhibiting any of the following symptoms?: No - Vaccine Status Have you recieved a Covid-19 vaccination: No <CHASTITY RUELAS - Last Filed: 04/08/21 06:45> - Review of Systems Constitutional: No Symptoms Eyes: No Symptoms Ears, Nose, & Throat: No Symptoms Respiratory: No Symptoms Cardiac: No Symptoms Abdominal/Gastrointestinal: Abdominal Pain, Nausea, Vomiting Genitourinary Symptoms: No Symptoms Musculoskeletal: No Symptoms Skin: No Symptoms Neurological: No Symptoms Psychological: No Symptoms Endocrine: No Symptoms Hematologic/Lymphatic: No Symptoms Immunological/Allergic: No Symptoms All Other Systems: Reviewed and Negative <CHASTITY RUELAS - Last Filed: 04/08/21 06:45> - Past Medical History Pertinent Past Medical History: Yes Neurological History: No Pertinent History ENT History: Other Cardiac History: No Pertinent History Respiratory History: No Pertinent History Endocrine Medical History: No Pertinent History Musculoskeletal History: Other GI Medical History: Irritable Bowel History: Other Psycho-Social History: Anxiety, Depression Female Reproductive Disorders: No Pertinent History Other Medical History: IBS. ACL TEAR ON RIGHT KNEE AT AGE 14 WITH TWO SURGERIES. - Past Surgical History Past Surgical History: Yes Neuro Surgical History: No Pertinent History Cardiac: No Pertinent History Respiratory: No Pertinent History Gastrointestinal: Cholecystectomy Genitourinary: No Pertinent History Musculoskeletal: Orthopedic Surgery Female Surgical History: No Pertinent History Other Surgical History: knee - tonsils - adenoids - tubes in ears. nicole - Social History Smoking Status: Current every day smoker How long have you smoked: 13 Exposure to second hand smoke: Yes Drug Use: marijuana Patient Lives Alone: No - Female History Hx Now: No <CHASTITY RUELAS - Last Filed: 04/08/21 06:45> - Physical Exam General Appearance: no apparent distress, alert, anxiety, obese Eye Exam: PERRL/EOMI, eyes nml inspection Ears, Nose, Throat Exam: normal ENT inspection, moist mucous membranes Neck Exam: normal inspection, non-tender, supple, full range of motion Respiratory Exam: normal breath sounds, lungs clear, airway intact, No chest tenderness, No respiratory distress Cardiovascular Exam: regular rate/rhythm, normal heart sounds, normal peripheral pulses Gastrointestinal/Abdomen Exam: soft, normal bowel sounds, tenderness (Mild epigastric and right upper quadrant with palpation), No guarding, No rebound Pelvic Exam: not done Rectal Exam: not done Back Exam: normal inspection, normal range of motion, No CVA tenderness, No vertebral tenderness Extremity Exam: normal inspection, normal range of motion, pelvis stable Neurologic Exam: alert, oriented x 3, cooperative, 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 as tested, normal mood/affect, nml cerebellar function, nml station & gait, sensation nml Skin Exam: normal color, warm, dry Lymphatic Exam: No adenopathy SpO2 Interpretation: normal SpO2: 97 O2 Delivery: Room Air <CHASTITY RUELAS - Last Filed: 04/08/21 06:45> - Nursing Vital Signs Nursing Vital Signs: Initial Vital Signs Temperature 97.9 F 04/08/21 06:18 Pulse Rate 83 04/08/21 06:18 Respiratory Rate 18 04/08/21 06:18 Blood Pressure 181/120 04/08/21 06:18 O2 Sat by Pulse Oximetry 97 04/08/21 06:18 Pain Scale Pain Intensity 4 - Course Nursing assessment & vital signs reviewed: Yes <CHASTITY RUELAS - Last Filed: 04/08/21 06:45> Ordered Tests: Active Orders 24 hr Category Date Time Status Clean Catch Urine Specimen STAT Care 04/08/21 06:42 Active IV Insertion STAT Care 04/08/21 06:42 Active AMYLASE Stat Lab 04/08/21 06:51 Completed CBC W DIFF Stat Lab 04/08/21 06:51 Completed CMP Stat Lab 04/08/21 06:51 Completed LIPASE Stat Lab 04/08/21 06:51 Completed Lactic Acid Stat Lab 04/08/21 06:42 Completed UA W/RFX UR CULTURE Stat Lab 04/08/21 06:42 Completed Urine Triage Profile Stat Lab 04/08/21 06:42 Completed Medication Summary Discontinued Medications Generic Name Dose Route Start Last Admin Trade Name Freq PRN Reason Stop Dose Admin Famotidine 40 mg 04/08/21 06:42 04/08/21 06:51 Pepcid 20 Mg Vial IV 04/08/21 06:43 40 mg STAT ONE Administration Famotidine Confirm 04/08/21 06:50 Pepcid 20 Mg Vial Administered 04/08/21 06:51 Dose 40 mg IV .STK-MED ONE Sodium Chloride 1,000 mls @ 999 mls/hr 04/08/21 06:43 04/08/21 07:54 Sodium Chloride 0.9% 1000 Ml IV 04/08/21 07:43 Infused .Q1H1M STA Infusion Sodium Chloride 1,000 mls @ 999 mls/hr 04/08/21 06:42 04/08/21 07:01 Sodium Chloride 0.9% 1000 Ml IV 04/08/21 07:42 Not Given .Q1H1M STA Sodium Chloride Confirm 04/08/21 06:44 Sodium Chloride 0.9% 1000 Ml Administered 04/08/21 06:45 Dose 1,000 mls @ ud .ROUTE .STK-MED ONE Morphine Sulfate 4 mg 04/08/21 07:38 04/08/21 07:47 Morphine Sulfate 4 Mg Inj IV 04/08/21 07:39 4 mg STAT ONE Administration Morphine Sulfate Confirm 04/08/21 07:45 Morphine Sulfate 4 Mg Inj Administered 04/08/21 07:46 Dose 4 mg .ROUTE .STK-MED ONE Ondansetron HCl 4 mg 04/08/21 06:43 04/08/21 06:45 Zofran 4 Mg/2 Ml Vial IV 04/08/21 06:44 4 mg STAT ONE Administration Ondansetron HCl Confirm 04/08/21 06:44 Zofran 4 Mg/2 Ml Vial Administered 04/08/21 06:45 Dose 4 mg .ROUTE .STK-MED ONE Prochlorperazine Edisylate 10 mg 04/08/21 06:42 04/08/21 06:51 Compazine 10 Mg/2 Ml IV 04/08/21 06:43 10 mg STAT ONE Administration Prochlorperazine Edisylate Confirm 04/08/21 06:50 Compazine 10 Mg/2 Ml Administered 04/08/21 06:51 Dose 10 mg .ROUTE .STK-MED ONE Lab/Rad Data: Laboratory Result Diagrams 04/08/21 06:51 04/08/21 06:51 Laboratory Results 04/08/21 04/08/21 04/08/21 Range/Units 06:51 06:51 06:42 WBC 12.1 H (4.0-10.5) K/mm3 RBC 5.49 H (4.1-5.4) M/mm3 Hgb 17.5 H (12.0-16.0) gm/dl Hct 52.8 H (35-47) % MCV 96.2 (78-100) fl MCH 31.9 (26-32) pg MCHC 33.1 (32-36) g/dl RDW 12.7 (11.5-14.0) % Plt Count 328 (150-450) K/mm3 MPV 9.7 (7.5-11.0) fl Gran % 69.5 H (36.0-66.0) % Eos # (Auto) 0.34 (0-0.5) Absolute Lymphs (auto) 2.47 (1.0-4.6) Absolute Monos (auto) 0.84 (0.0-1.3) Lymphocytes % 20.5 L (24.0-44.0) % Monocytes % 7.0 (0.0-12.0) % Eosinophils % 2.8 (0.00-5.0) % Basophils % 0.2 (0.0-0.4) % Absolute Granulocytes 8.38 H (1.4-6.9) Basophils # 0.02 (0-0.4) Sodium 137 (137-145) mmol/L Potassium 3.6 (3.5-5.1) mmol/L Chloride 102 (98-107) mmol/L Carbon Dioxide 23 (22-30) mmol/L Anion Gap 15.0 (5-15) MEQ/L BUN 4 L (7-17) mg/dL Creatinine 0.74 (0.52-1.04) mg/dL Estimated GFR > 60.0 ML/MIN Glucose 110 H (74-106) mg/dL Lactic Acid 1.5 (0.4-2.0) Calcium 9.0 (8.4-10.2) mg/dL Total Bilirubin 0.60 (0.2-1.3) mg/dL AST 23 (14-36) U/L ALT 16 (0-35) U/L Alkaline Phosphatase 96 (38-126) U/L Serum Total Protein 7.4 (6.3-8.2) g/dL Albumin 4.1 (3.5-5.0) g/dL Amylase 56 (30-110) U/L Lipase 78 (23-300) U/L Urine Color (YELLOW) Urine Appearance (CLEAR) Urine pH (5-6) Ur Specific [place] (1.005-1.025) Urine Protein (Negative) Urine Ketones (NEGATIVE) Urine Blood (0-5) Ajay/ul Urine Nitrite (NEGATIVE) Urine Bilirubin (NEGATIVE) Urine Urobilinogen (0-1) mg/dL Ur Leukocyte Esterase (NEGATIVE) Urine WBC (Auto) (0-5) /HPF Urine RBC (Auto) (0-2) /HPF U Hyaline Cast (Auto) (0-2) /LPF U Epithel Cells (Auto) (FEW) /HPF Urine Bacteria (Auto) (NEGATIVE) /HPF Urine Mucus (Auto) (NEGATIVE) /HPF Urine Culture Reflexed (NO) Urine Glucose (NEGATIVE) mg/dL Urine Opiates Level (NEGATIVE) Ur Methadone (NEGATIVE) Urine Barbiturates (NEGATIVE) Ur Phencyclidine (PCP) (NEGATIVE) Urine Amphetamine (NEGATIVE) U Benzodiazepine Level (NEGATIVE) Urine Cocaine (NEGATIVE) Urine Marijuana (THC) (NEGATIVE) 04/08/21 04/08/21 Range/Units 06:42 06:42 WBC (4.0-10.5) K/mm3 RBC (4.1-5.4) M/mm3 Hgb (12.0-16.0) gm/dl Hct (35-47) % MCV (78-100) fl MCH (26-32) pg MCHC (32-36) g/dl RDW (11.5-14.0) % Plt Count (150-450) K/mm3 MPV (7.5-11.0) fl Gran % (36.0-66.0) % Eos # (Auto) (0-0.5) Absolute Lymphs (auto) (1.0-4.6) Absolute Monos (auto) (0.0-1.3) Lymphocytes % (24.0-44.0) % Monocytes % (0.0-12.0) % Eosinophils % (0.00-5.0) % Basophils % (0.0-0.4) % Absolute Granulocytes (1.4-6.9) Basophils # (0-0.4) Sodium (137-145) mmol/L Potassium (3.5-5.1) mmol/L Chloride (98-107) mmol/L Carbon Dioxide (22-30) mmol/L Anion Gap (5-15) MEQ/L BUN (7-17) mg/dL Creatinine (0.52-1.04) mg/dL Estimated GFR ML/MIN Glucose (74-106) mg/dL Lactic Acid (0.4-2.0) Calcium (8.4-10.2) mg/dL Total Bilirubin (0.2-1.3) mg/dL AST (14-36) U/L ALT (0-35) U/L Alkaline Phosphatase (38-126) U/L Serum Total Protein (6.3-8.2) g/dL Albumin (3.5-5.0) g/dL Amylase (30-110) U/L Lipase (23-300) U/L Urine Color YELLOW (YELLOW) Urine Appearance SLIGHTLY CLOUDY (CLEAR) Urine pH 7.0 (5-6) Ur Specific [place] 1.015 (1.005-1.025) Urine Protein NEGATIVE (Negative) Urine Ketones NEGATIVE (NEGATIVE) Urine Blood SMALL (0-5) Ajay/ul Urine Nitrite NEGATIVE (NEGATIVE) Urine Bilirubin NEGATIVE (NEGATIVE) Urine Urobilinogen NEGATIVE (0-1) mg/dL Ur Leukocyte Esterase NEGATIVE (NEGATIVE) Urine WBC (Auto) 0-2 (0-5) /HPF Urine RBC (Auto) 0-2 (0-2) /HPF U Hyaline Cast (Auto) 0-2 (0-2) /LPF U Epithel Cells (Auto) RARE (FEW) /HPF Urine Bacteria (Auto) NONE (NEGATIVE) /HPF Urine Mucus (Auto) SLIGHT (NEGATIVE) /HPF Urine Culture Reflexed NO (NO) Urine Glucose NEGATIVE (NEGATIVE) mg/dL Urine Opiates Level NEGATIVE (NEGATIVE) Ur Methadone NEGATIVE (NEGATIVE) Urine Barbiturates NEGATIVE (NEGATIVE) Ur Phencyclidine (PCP) NEGATIVE (NEGATIVE) Urine Amphetamine NEGATIVE (NEGATIVE) U Benzodiazepine Level POSITIVE (NEGATIVE) Urine Cocaine NEGATIVE (NEGATIVE) Urine Marijuana (THC) POSITIVE (NEGATIVE) - Progress Progress: pain not gone completely Counseled pt/family regarding: lab results, diagnosis, need for follow-up <CHASTITY RUELAS - Last Filed: 04/08/21 06:45> - Progress Counseled pt/family regarding: lab results, diagnosis, need for follow-up <MARIALUISA PATEL - Last Filed: 04/08/21 07:57> - Progress Progress Note: 04/08/21 06:47 Patient care was transferred to Dr. Patel at shift change. He was informed of the lab results that were pending to be followed up on. He will make the final disposition on this patient (CHASTITY RUELAS) 04/08/21 07:54 Patient is checked out to me at shift change from Dr. Ruelas with pending work- up. Patient presented with abdominal pain vomiting. This has been an ongoing issue for quite some time and patient has done follow-up with GI in [facility]. Patient does continue to smoke marijuana. I believe patient has cyclical vomiting syndrome. She is encouraged to stop smoking marijuana. Her work-up for acute abdomen is grossly unremarkable. She has recently CT done and was admitted and abdominal exam is soft with no peritoneal signs. I do not think can do agree with Dr. Ruelas that patient does not meet another CT imaging. She does have antiemetics at home. She is given morphine for symptomatic relief, on reevaluation feeling better. She is being discharged with outpatient primary care and GI follow-up. Discussed signs symptoms of worsening needing return to ER which she seemed understanding. Stable for discharge. (MARIALUISA PATEL) - Departure Departure Disposition: Home Critical Care Time: No <CHASTITY RUELAS - Last Filed: 04/08/21 06:45> - Departure Departure Disposition: Home <MARIALUISA PATEL - Last Filed: 04/08/21 07:57> - Departure Clinical Impression: Cyclical vomiting syndrome Condition: Stable Referrals: SAHRA CALDERON MD [Primary Care Provider] - (1-2 days for reevaluation) MARCELLA BULLARD JR [NON-STAFF PHY W/O PRIVILEGES] - (Call tomorrow for appointment) Instructions: Nausea and Vomiting, Adult (DC) Additional Instructions: Drink plenty of fluids. Take Tylenol/ibuprofen as needed. Continue with antiemetics which you have at home. Follow-up with your primary care and [facility] for reevaluation early next week. Return to ER for intractable abdominal pain/vomiting/fever chills etc.
[2021-04-08] MEDS ORDERED: Sodium Chloride 0.9% 1000 ML 1,000 ML ONE (06:44)
[2021-04-08] MEDS ORDERED: Zofran 4 MG/2 ML VIAL ONE (06:44)
[2021-04-08] MEDS: Sodium Chloride 0.9% 1000 ML 1,000 ML IV STA ×2 (06:45→07:01)
[2021-04-08] MEDS: Zofran 4 MG/2 ML VIAL IV ONE (06:45)
[2021-04-08] MEDS ORDERED: Pepcid 20 MG VIAL IV ONE (06:50)
[2021-04-08] MEDS ORDERED: Compazine 10 MG/2 ML ONE (06:50)
[2021-04-08] MEDS: Compazine 10 MG/2 ML IV ONE (06:51)
[2021-04-08] MEDS: Pepcid 20 MG VIAL IV ONE (06:51)
[2021-04-08 07:10] LABS: Absolute Neutrophil Ct (ANC) 8.38 (1.4-6.9); BASOPHIL % 0.2 % (0.0-0.4); Basophil (Absolute #) 0.02 (0-0.4); Eosinophil % 2.8 % (0.00-5.0); Eosinophil (Absolute #) 0.34 (0-0.5); Hematocrit 52.8 % (35-47); Hemoglobin 17.5 gm/dl (12.0-16.0); Lymphocyte (Absolute #) 2.47 (1.0-4.6); Lymphocytes % 20.5 % (24.0-44.0); Mean Cell Volume 96.2 fl (78-100); Mean Corpuscular Hemoglobin 31.9 pg (26-32); Mean Corpuscular Hgb Concent. 33.1 g/dl (32-36); Mean Platelet Volume 9.7 fl (7.5-11.0); Monocyte (Absolute #) 0.84 (0.0-1.3); Neutrophil % 69.5 % (36.0-66.0); Platelet Count 328 K/mm3 (150-450); Red Blood Count 5.49 M/mm3 (4.1-5.4); Red Cell Distribution Width 12.7 % (11.5-14.0); White Blood Count 12.1 K/mm3 (4.0-10.5)
[2021-04-08 07:13] LABS: ALBUMIN 4.1 g/dL (3.5-5.0); ALKALINE PHOSPHATASE 96 U/L (38-126); AMYLASE 56 U/L (30-110); BLOOD UREA NITROGEN 4 mg/dL (7-17); CHLORIDE 102 mmol/L (98-107); Carbon Dioxide 23 mmol/L (22-30); Creatinine 1 0.74 mg/dL (0.52-1.04); EST GLOMERULAR FILTRATION RATE > 60.0 ML/MIN; Glucose 110 mg/dL (74-106); LIPASE 78 U/L (23-300); Potassium 3.6 mmol/L (3.5-5.1); SGOT/AST 23 U/L (14-36); SGPT/ALT 16 U/L (0-35); SODIUM 137 mmol/L (137-145); Total Protein 7.4 g/dL (6.3-8.2)
[2021-04-08 07:14] LABS: Appearance SLIGHTLY CLOUDY (CLEAR); Bilirubin NEGATIVE (NEGATIVE); Blood SMALL Ery/ul (0-5); Epithelial Cells RARE /HPF (FEW); Glucose NEGATIVE (NEGATIVE); Hyaline Casts 0-2 /LPF (0-2); Ketones NEGATIVE (NEGATIVE); Leukocyte Esterase NEGATIVE (NEGATIVE); Mucus SLIGHT /HPF (NEGATIVE); Nitrite NEGATIVE (NEGATIVE); Protein,Urine Dip NEGATIVE (Negative); RBC 0-2 /HPF (0-2); Specific Gravity 1.015 (1.005-1.025); Urobilinogen NEGATIVE mg/dL (0-1); WBC 0-2 /HPF (0-5)
[2021-04-08 07:25] LABS: Amphetamine,Urine NEGATIVE (NEGATIVE); Barbiturate,Urine NEGATIVE (NEGATIVE); Benzodiazepine,Urine POSITIVE (NEGATIVE); Cocaine,Urine NEGATIVE (NEGATIVE); Methadone,Urine NEGATIVE (NEGATIVE); Opiate,Urine NEGATIVE (NEGATIVE); PCP,Urine NEGATIVE (NEGATIVE); THC,Urine POSITIVE (NEGATIVE)
[2021-04-08] MEDS ORDERED: MORPHINE SULFATE 4 MG INJ ONE (07:45)
[2021-04-08] MEDS: MORPHINE SULFATE 4 MG INJ IV ONE (07:47)
[2021-04-08 07:56] VITALS: PULSE 90; O2SAT 98
[2021-04-08 07:57] VITALS: BP 160/94
== END 2021-04-08 08:10 | disposition home or self-care (01) ==
LOC: ED 06:11
DX: R11.15 Cyclical vomiting syndrome unrelated to migraine (principal)
CPT/HCPCS: 36000; 36415; 80053; 80307; 81001; 82150; 83605; 83690; 85025; 96360; 96374; 96375; 99284; J2270; J2405

== ENCOUNTER 2021-08-28 14:51 | Emergency (ER) | payer OTHER ==
[2021-08-28] MEDS ORDERED: Inapsine 5 MG/2 ML ONE (15:30)
[2021-08-28] MEDS ORDERED: BENADRYL 50 MG/ML ONE (15:31)
[2021-08-28] MEDS ORDERED: Sodium Chloride 0.9% 1000 ML 1,000 ML ONE (15:31)
[2021-08-28] MEDS ORDERED: PROTONIX 40 MG IV IV ONE (15:31)
--- NOTE | 2021-08-28 15:31 | ERPHSYRPT ---
- History of Present Illness Time Seen by Provider: 08/28/21 14:59 Historian: patient Exam Limitations: no limitations Patient Subjective Stated Complaint: abdominal pain and vomiting associated with IBS Triage Nursing Assessment: Pt was brought to the ER by her father, vitals wnl, rates pain as 8/10, hx of IBS, pain and vomiting began this morning while having a bowel movement, pulses normal, skin n/w/d, no difficulties breathing, pain with palpatation to the RLQ and both left quadrants, denies any blood in the stool Physician History: 31 years old female with history of irritable bowel syndrome presented in the ER with chief complaint of sudden onset right-sided abdominal pain with nausea while she was on the commode this morning with multiple episodes of nonprojectile, nonbilious vomiting without hematemesis. She is unable to hold anything down. Pain is moderate to severe intensity, sharp nature, feeling weak fatigued and tired. No fever or chills reported. Timing/Duration: today, constant, sudden, worse Activities at Onset: other Quality: sharpness Abdominal Pain Onset Location: RUQ, RLQ, flank Severity of Pain-Max: severe Severity of Pain-Current: moderate Modifying Factors: Improves With: nothing Associated Symptoms: nausea, vomiting Previous symptoms: same symptoms as today Allergies/Adverse Reactions: cephalexin monohydrate [From Keflex] Allergy (Mild, Verified 08/28/21 15:11) Hives Home Medications: Amitriptyline HCl 10 mg [Elavil 10 mg] 50 mg PO HS 04/03/21 [History] Ondansetron ODT 4 MG [Zofran Odt 4 mg] 1 ea PO QIDPRN PRN 04/03/21 [History] Trazodone HCl 100 mg PO HSPRN PRN 04/03/21 [History] Duloxetine HCl 30 mg [Cymbalta 30 MG Capsule] 30 mg PO DAILY 08/28/21 [History] Hx Tetanus, Diphtheria Vaccination/Date Given: Yes Hx Influenza Vaccination/Date Given: Yes Hx Pneumococcal Vaccination/Date Given: No Travel Risk - International Travel Have you traveled outside of the country in past 3 weeks: No - Coronavirus Screening Are you exhibiting any of the following symptoms?: No Close contact with a COVID-19 positive Pt in past 14-21 Days: No - Vaccine Status Have you recieved a Covid-19 vaccination: Yes 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: [employer] - Review of Systems Constitutional: Fatigue, Weakness Eyes: No Symptoms Ears, Nose, & Throat: No Symptoms Respiratory: No Symptoms Cardiac: No Symptoms Abdominal/Gastrointestinal: Abdominal Pain, Nausea, Vomiting Genitourinary Symptoms: No Symptoms Musculoskeletal: No Symptoms Skin: No Symptoms Neurological: No Symptoms Psychological: No Symptoms Endocrine: No Symptoms Hematologic/Lymphatic: No Symptoms Immunological/Allergic: No Symptoms - Past Medical History Pertinent Past Medical History: Yes Neurological History: No Pertinent History ENT History: Other Cardiac History: No Pertinent History Respiratory History: No Pertinent History Endocrine Medical History: No Pertinent History Musculoskeletal History: Other GI Medical History: Irritable Bowel History: Other Psycho-Social History: Anxiety, Depression Female Reproductive Disorders: No Pertinent History Other Medical History: IBS. ACL TEAR ON RIGHT KNEE AT AGE 14 WITH TWO SURGERIES. - Past Surgical History Past Surgical History: Yes Neuro Surgical History: No Pertinent History Cardiac: No Pertinent History Respiratory: No Pertinent History Gastrointestinal: Cholecystectomy Genitourinary: No Pertinent History Musculoskeletal: Orthopedic Surgery Female Surgical History: No Pertinent History Other Surgical History: knee - tonsils - adenoids - tubes in ears. nicole - Social History Smoking Status: Current every day smoker How long have you smoked: 13 Exposure to second hand smoke: Yes Drug Use: marijuana Patient Lives Alone: No - Female History Hx Now: No (mendezna) - Nursing Vital Signs Nursing Vital Signs: Initial Vital Signs Temperature 96.2 F 08/28/21 14:57 Pulse Rate 96 H 08/28/21 14:57 Blood Pressure 139/87 08/28/21 14:57 O2 Sat by Pulse Oximetry 96 08/28/21 14:57 Pain Scale Pain Intensity 0 - Physical Exam General Appearance: no apparent distress, alert Eye Exam: PERRL/EOMI, eyes nml inspection Ears, Nose, Throat Exam: normal ENT inspection, pharynx normal Neck Exam: normal inspection, supple, full range of motion Respiratory Exam: normal breath sounds, lungs clear Cardiovascular Exam: regular rate/rhythm, normal heart sounds Gastrointestinal/Abdomen Exam: soft, normal bowel sounds, tenderness (Right upper and lower quadrant with minimal guarding in right lower quadrant) Extremity Exam: normal inspection, normal range of motion Neurologic Exam: alert, oriented x 3, cooperative Skin Exam: normal color SpO2 Interpretation: normal SpO2: 96 O2 Delivery: Room Air Ordered Tests: Active Orders 24 hr Category Date Time Status IV Insertion STAT Care 08/28/21 15:24 Active NPO (ED) STAT Care 08/28/21 15:27 Active ABDOMEN AND PELVIS W/0 CONTRAS [CT] Stat Exams 08/28/21 15:27 Completed CBC W DIFF Stat Lab 08/28/21 15:00 Completed CMP Stat Lab 08/28/21 15:00 Completed HCG,QUALITATIVE URINE Stat Lab 08/28/21 15:29 Completed LIPASE Stat Lab 08/28/21 15:00 Completed UA W/RFX UR CULTURE Stat Lab 08/28/21 15:29 Completed Medication Summary Discontinued Medications Generic Name Dose Route Start Last Admin Trade Name Freq PRN Reason Stop Dose Admin Diphenhydramine HCl 25 mg 08/28/21 15:27 08/28/21 15:34 Diphenhydramine Hcl 50 Mg/Ml Vial IV 08/28/21 15:28 25 mg STAT ONE Administration Diphenhydramine HCl Confirm 08/28/21 15:31 Diphenhydramine Hcl 50 Mg/Ml Vial Administered 08/28/21 15:32 Dose 50 mg .ROUTE .STK-MED ONE Droperidol 1.25 mg 08/28/21 15:27 08/28/21 15:34 Droperidol 5 Mg/2 Ml Vial IV 08/28/21 15:28 1.25 mg STAT ONE Administration Droperidol Confirm 08/28/21 15:30 Droperidol 5 Mg/2 Ml Vial Administered 08/28/21 15:31 Dose 5 mg .ROUTE .STK-MED ONE Sodium Chloride 1,000 mls @ 999 mls/hr 08/28/21 15:27 08/28/21 16:35 Sodium Chloride 0.9% 1000 Ml IV 08/28/21 16:27 Infused .Q1H1M STA Infusion Sodium Chloride Confirm 08/28/21 15:31 Sodium Chloride 0.9% 1000 Ml Administered 08/28/21 15:32 Dose 1,000 mls @ ud .ROUTE .STK-MED ONE Pantoprazole Sodium 40 mg 08/28/21 15:27 08/28/21 15:34 Pantoprazole 40 Mg Vial IV 08/28/21 15:28 40 mg STAT ONE Administration Pantoprazole Sodium Confirm 08/28/21 15:31 Pantoprazole 40 Mg Vial Administered 08/28/21 15:32 Dose 40 mg IV .STK-MED ONE Lab/Rad Data: Laboratory Result Diagrams 08/28/21 15:00 08/28/21 15:00 Laboratory Results 08/28/21 08/28/21 08/28/21 Range/Units 15:29 15:29 15:00 WBC (4.0-10.5) K/mm3 RBC (4.1-5.4) M/mm3 Hgb (12.0-16.0) gm/dl Hct (35-47) % MCV (78-100) fl MCH (26-32) pg MCHC (32-36) g/dl RDW (11.5-14.0) % Plt Count (150-450) K/mm3 MPV (7.5-11.0) fl Gran % (36.0-66.0) % Eos # (Auto) (0-0.5) Absolute Lymphs (auto) (1.0-4.6) Absolute Monos (auto) (0.0-1.3) Lymphocytes % (24.0-44.0) % Monocytes % (0.0-12.0) % Eosinophils % (0.00-5.0) % Basophils % (0.0-0.4) % Absolute Granulocytes (1.4-6.9) Basophils # (0-0.4) Sodium 137 (137-145) mmol/L Potassium 4.4 (3.5-5.1) mmol/L Chloride 104 (98-107) mmol/L Carbon Dioxide 26 (22-30) mmol/L Anion Gap 11.2 (5-15) MEQ/L BUN 5 L (7-17) mg/dL Creatinine 0.72 (0.52-1.04) mg/dL Estimated GFR > 60.0 ML/MIN Glucose 97 (74-106) mg/dL Calcium 9.2 (8.4-10.2) mg/dL Total Bilirubin 0.60 (0.2-1.3) mg/dL AST 33 (14-36) U/L ALT 25 (0-35) U/L Alkaline Phosphatase 153 H (38-126) U/L Serum Total Protein 8.0 (6.3-8.2) g/dL Albumin 4.3 (3.5-5.0) g/dL Lipase 67 (23-300) U/L Urine Color YELLOW (YELLOW) Urine Appearance CLEAR (CLEAR) Urine pH 8.0 (5-6) Ur Specific [place] 1.019 (1.005-1.025) Urine Protein NEGATIVE (Negative) Urine Ketones NEGATIVE (NEGATIVE) Urine Blood NEGATIVE (0-5) Ajay/ul Urine Nitrite NEGATIVE (NEGATIVE) Urine Bilirubin NEGATIVE (NEGATIVE) Urine Urobilinogen NEGATIVE (0-1) mg/dL Ur Leukocyte Esterase NEGATIVE (NEGATIVE) Urine WBC (Auto) NONE (0-5) /HPF Urine RBC (Auto) NONE (0-2) /HPF U Epithel Cells (Auto) RARE (FEW) /HPF Urine Bacteria (Auto) NONE (NEGATIVE) /HPF Urine Mucus (Auto) SLIGHT (NEGATIVE) /HPF Urine Culture Reflexed NO (NO) Urine Glucose NEGATIVE (NEGATIVE) mg/dL Urine HCG, Qual NEGATIVE (Negative) 08/28/21 Range/Units 15:00 WBC 14.9 H (4.0-10.5) K/mm3 RBC 6.28 H (4.1-5.4) M/mm3 Hgb 19.4 H (12.0-16.0) gm/dl Hct 59.7 H (35-47) % MCV 95.1 (78-100) fl MCH 30.9 (26-32) pg MCHC 32.5 (32-36) g/dl RDW 13.3 (11.5-14.0) % Plt Count 316 (150-450) K/mm3 MPV 9.5 (7.5-11.0) fl Gran % 81.3 H (36.0-66.0) % Eos # (Auto) 0.25 (0-0.5) Absolute Lymphs (auto) 1.85 (1.0-4.6) Absolute Monos (auto) 0.65 (0.0-1.3) Lymphocytes % 12.4 L (24.0-44.0) % Monocytes % 4.4 (0.0-12.0) % Eosinophils % 1.7 (0.00-5.0) % Basophils % 0.2 (0.0-0.4) % Absolute Granulocytes 12.12 H (1.4-6.9) Basophils # 0.03 (0-0.4) Sodium (137-145) mmol/L Potassium (3.5-5.1) mmol/L Chloride (98-107) mmol/L Carbon Dioxide (22-30) mmol/L Anion Gap (5-15) MEQ/L BUN (7-17) mg/dL Creatinine (0.52-1.04) mg/dL Estimated GFR ML/MIN Glucose (74-106) mg/dL Calcium (8.4-10.2) mg/dL Total Bilirubin (0.2-1.3) mg/dL AST (14-36) U/L ALT (0-35) U/L Alkaline Phosphatase (38-126) U/L Serum Total Protein (6.3-8.2) g/dL Albumin (3.5-5.0) g/dL Lipase (23-300) U/L Urine Color (YELLOW) Urine Appearance (CLEAR) Urine pH (5-6) Ur Specific [place] (1.005-1.025) Urine Protein (Negative) Urine Ketones (NEGATIVE) Urine Blood (0-5) Ajay/ul Urine Nitrite (NEGATIVE) Urine Bilirubin (NEGATIVE) Urine Urobilinogen (0-1) mg/dL Ur Leukocyte Esterase (NEGATIVE) Urine WBC (Auto) (0-5) /HPF Urine RBC (Auto) (0-2) /HPF U Epithel Cells (Auto) (FEW) /HPF Urine Bacteria (Auto) (NEGATIVE) /HPF Urine Mucus (Auto) (NEGATIVE) /HPF Urine Culture Reflexed (NO) Urine Glucose (NEGATIVE) mg/dL Urine HCG, Qual (Negative) - Progress Progress: improved Progress Note: 08/28/21 17:02 FEELING BETTER Counseled pt/family regarding: lab results, diagnosis, need for follow-up, rad results - Departure Departure Disposition: Home Clinical Impression: Abdominal pain, Nausea and vomiting Condition: Stable Critical Care Time: No Referrals: SAHRA GALVEZ MD [Primary Care Provider] - Follow Up with PCP/3 days Instructions: Nausea and Vomiting, Adult (DC), Acute Abdomen (Belly Pain), Adult (DC) Additional Instructions: Take tylenol as needed, follow up with PCP for re evaluation. take zofran as needed for nausea /vomiting. return to ER for any worsening . Prescriptions: Ondansetron ODT 4 MG [Zofran Odt 4 mg] 1 ea PO QIDPRN PRN #7 tablet PRN Reason: n/v
[2021-08-28] MEDS: Inapsine 5 MG/2 ML IV ONE (15:34)
[2021-08-28] MEDS: BENADRYL 50 MG/ML IV ONE (15:34)
[2021-08-28] MEDS: PROTONIX 40 MG IV IV ONE (15:34)
[2021-08-28] MEDS: Sodium Chloride 0.9% 1000 ML 1,000 ML IV STA (15:34)
[2021-08-28 15:41] LABS: Absolute Neutrophil Ct (ANC) 12.12 (1.4-6.9); BASOPHIL % 0.2 % (0.0-0.4); Basophil (Absolute #) 0.03 (0-0.4); Eosinophil % 1.7 % (0.00-5.0); Eosinophil (Absolute #) 0.25 (0-0.5); Hematocrit 59.7 % (35-47); Hemoglobin 19.4 gm/dl (12.0-16.0); Lymphocyte (Absolute #) 1.85 (1.0-4.6); Lymphocytes % 12.4 % (24.0-44.0); Mean Cell Volume 95.1 fl (78-100); Mean Corpuscular Hemoglobin 30.9 pg (26-32); Mean Corpuscular Hgb Concent. 32.5 g/dl (32-36); Mean Platelet Volume 9.5 fl (7.5-11.0); Monocyte (Absolute #) 0.65 (0.0-1.3); Monocytes % 4.4 % (0.0-12.0); Neutrophil % 81.3 % (36.0-66.0); Platelet Count 316 K/mm3 (150-450); Red Blood Count 6.28 M/mm3 (4.1-5.4); Red Cell Distribution Width 13.3 % (11.5-14.0); White Blood Count 14.9 K/mm3 (4.0-10.5)
[2021-08-28 15:43] LABS: Appearance CLEAR (CLEAR); Bilirubin NEGATIVE (NEGATIVE); Blood NEGATIVE Ery/ul (0-5); Epithelial Cells RARE /HPF (FEW); Glucose NEGATIVE (NEGATIVE); Ketones NEGATIVE (NEGATIVE); Leukocyte Esterase NEGATIVE (NEGATIVE); Mucus SLIGHT /HPF (NEGATIVE); Nitrite NEGATIVE (NEGATIVE); Protein,Urine Dip NEGATIVE (Negative); Specific Gravity 1.019 (1.005-1.025); Urobilinogen NEGATIVE mg/dL (0-1)
[2021-08-28 16:26] LABS: ALBUMIN 4.3 g/dL (3.5-5.0); ALKALINE PHOSPHATASE 153 U/L (38-126); ANION GAP 11.2 MEQ/L (5-15); BLOOD UREA NITROGEN 5 mg/dL (7-17); CHLORIDE 104 mmol/L (98-107); Calcium 9.2 mg/dL (8.4-10.2); Carbon Dioxide 26 mmol/L (22-30); Creatinine 1 0.72 mg/dL (0.52-1.04); EST GLOMERULAR FILTRATION RATE > 60.0 ML/MIN; Glucose 97 mg/dL (74-106); LIPASE 67 U/L (23-300); Potassium 4.4 mmol/L (3.5-5.1); SGOT/AST 33 U/L (14-36); SGPT/ALT 25 U/L (0-35); SODIUM 137 mmol/L (137-145)
--- NOTE | 2021-08-28 16:35 | XRAY ---
Indication: Chronic right abdomen pain and vomiting 2 years. Multiple contiguous axial images obtained through the abdomen and pelvis without contrast. Comparison: April 03, 2021. Lung bases demonstrate stable small left lower lobe calcified granuloma. No infiltrate or effusion. Heart not enlarged. Again small hiatal hernia. Noncontrasted stomach and bowel loops nonobstructed again with normal appendix. Stable cholecystectomy clips and uterine IUD. No free fluid/air. Remaining liver, pancreas, spleen, adrenal glands, kidneys, ureters, bladder, uterus, and aorta are unremarkable for noncontrast exam. Osseous structures intact. No ventral or inguinal hernias. Impression: 1. Stable small hiatal hernia and uterine IUD 2. Continued negative CT abdomen/pelvis without contrast exam.
[2021-08-28 17:08] VITALS: BP 111/70; PULSE 80; O2SAT 95
== END 2021-08-28 17:13 | disposition home or self-care (01) ==
LOC: ED 14:51
DX: R10.31 Right lower quadrant pain (principal); R10.11 Right upper quadrant pain; R11.2 Nausea with vomiting, unspecified; K58.9 Irritable bowel syndrome, unspecified; Z72.0 Tobacco use
CPT/HCPCS: 36000; 36415; 74176; 80053; 81001; 83690; 84703; 85025; 96374; 96375; 99284; J1200

== ENCOUNTER 2022-04-02 10:25 | Observation (INO) | payer OTHER ==
[2022-04-02] MEDS ORDERED: Zofran 4 MG/2 ML VIAL IV ONE ×2 (10:46→11:20)
[2022-04-02] MEDS ORDERED: MORPHINE SULFATE 2 MG INJ IV ONE ×2 (10:46→12:38)
[2022-04-02] MEDS ORDERED: Zofran 4 MG/2 ML VIAL ONE ×2 (10:50→11:22)
[2022-04-02] MEDS ORDERED: Sodium Chloride 0.9% 1000 ML 1,000 ML ONE (10:50)
[2022-04-02] MEDS ORDERED: MORPHINE SULFATE 2 MG INJ ONE ×2 (10:50→12:42)
[2022-04-02] MEDS: Sodium Chloride 0.9% 1000 ML 1,000 ML IV SCH ×2 (10:51→22:57)
--- NOTE | 2022-04-02 10:56 | ERPHSYRPT ---
- History of Present Illness Time Seen by Provider: 04/02/22 10:45 Historian: patient Exam Limitations: no limitations Patient Subjective Stated Complaint: Pt woke up around 0400 vomiting and has done so approx 10 x since Triage Nursing Assessment: Pt brought to the ER by her mother, hypertensive, rates abdominal pain as 9/10, N&V, denies diarrhea, smokes marijuana with the last time being 4 days ago, pt c/o of upper vick quadrant pain, does not have her gall bladder, last bowel movement this morning, has progressive IBS Physician History: Patient is a 32-year-old female presents to emergency department for evaluation of epigastric pain. Pain awoke her from her sleep at approximately 4 AM this morning. Patient states she began vomiting. Patient states she is had approximately 10 episodes of vomiting. No trauma. No fever. No constipation or diarrhea. Patient states her gallbladder was surgically removed. She does have a history of irritable bowel syndrome. Symptoms are constant. Symptoms are moderate in intensity. No specific worsening improving factors. Patient voices no other complaints or concerns at this time. Timing/Duration: today Activities at Onset: none Quality: aching Abdominal Pain Onset Location: epigastric Pain Radiation: no radiation Severity of Pain-Max: moderate Severity of Pain-Current: mild Modifying Factors: Improves With: nothing Associated Symptoms: denies symptoms, No chest pain, No diarrhea, No fever/chills, No weakness Previous symptoms: no prior history Allergies/Adverse Reactions: cephalexin monohydrate [From Keflex] Allergy (Mild, Verified 04/02/22 10:36) Hives Home Medications: Amitriptyline HCl 10 mg [Elavil 10 mg] 50 mg PO HS 04/03/21 [History] Duloxetine HCl 30 mg [Cymbalta 30 MG Capsule] 60 mg PO DAILY 08/28/21 [History] Prazosin HCl [Minipress] 1 mg PO DAILY 04/02/22 [History] Propranolol HCl 10 mg PO DAILY 04/02/22 [History] Hx Tetanus, Diphtheria Vaccination/Date Given: Yes Hx Influenza Vaccination/Date Given: Yes Hx Pneumococcal Vaccination/Date Given: No Travel Risk - International Travel Have you traveled outside of the country in past 3 weeks: No - Coronavirus Screening Are you exhibiting any of the following symptoms?: Yes Symptoms: Vomiting/Diarrhea Close contact with a COVID-19 positive Pt in past 14-21 Days: No - Vaccine Status Have you recieved a Covid-19 vaccination: Yes 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: [employer] - Review of Systems Constitutional: No Symptoms, No Fever, No Chills Eyes: No Symptoms Ears, Nose, & Throat: No Symptoms Respiratory: No Symptoms, No Cough, No Dyspnea Cardiac: No Symptoms, No Chest Pain, No Edema, No Syncope Abdominal/Gastrointestinal: No Symptoms, No Abdominal Pain, No Nausea, No Vomiting, No Diarrhea Genitourinary Symptoms: No Symptoms, No Dysuria Musculoskeletal: No Symptoms, No Back Pain, No Neck Pain Skin: No Symptoms, No Rash Neurological: No Symptoms, No Dizziness, No Focal Weakness, No Sensory Changes Psychological: No Symptoms Endocrine: No Symptoms Hematologic/Lymphatic: No Symptoms Immunological/Allergic: No Symptoms All Other Systems: Reviewed and Negative - Past Medical History Pertinent Past Medical History: Yes Neurological History: No Pertinent History ENT History: Other Cardiac History: No Pertinent History Respiratory History: No Pertinent History Endocrine Medical History: No Pertinent History Musculoskeletal History: Other GI Medical History: Irritable Bowel History: Other Psycho-Social History: Anxiety, Depression Female Reproductive Disorders: No Pertinent History Other Medical History: IBS. Recent ACL reconstruction in 2020 - Past Surgical History Past Surgical History: Yes Neuro Surgical History: No Pertinent History Cardiac: No Pertinent History Respiratory: No Pertinent History Gastrointestinal: Cholecystectomy Genitourinary: No Pertinent History Musculoskeletal: Orthopedic Surgery Female Surgical History: No Pertinent History Other Surgical History: knee - tonsils - adenoids - tubes in ears. nicole - Social History Smoking Status: Current every day smoker How long have you smoked: 13 Exposure to second hand smoke: Yes Drug Use: marijuana Patient Lives Alone: No - Female History Hx Now: No (merena) - Nursing Vital Signs Nursing Vital Signs: Initial Vital Signs Temperature 97.9 F 04/02/22 10:29 Pulse Rate 77 04/02/22 10:29 Blood Pressure 194/127 04/02/22 10:29 O2 Sat by Pulse Oximetry 100 04/02/22 10:29 Pain Scale Pain Intensity 6 - Physical Exam General Appearance: no apparent distress, alert Eye Exam: PERRL/EOMI, eyes nml inspection Ears, Nose, Throat Exam: normal ENT inspection, pharynx normal, moist mucous membranes Neck Exam: normal inspection, non-tender, supple, full range of motion Respiratory Exam: normal breath sounds, lungs clear, airway intact, No respiratory distress Cardiovascular Exam: regular rate/rhythm, normal heart sounds, normal peripheral pulses Gastrointestinal/Abdomen Exam: soft, No tenderness, No mass Back Exam: normal inspection, normal range of motion, No CVA tenderness, No vertebral tenderness Extremity Exam: normal inspection, normal range of motion, pelvis stable Neurologic Exam: alert, oriented x 3, cooperative, normal mood/affect, nml cerebellar function, sensation nml, No motor deficits Skin Exam: normal color, warm, dry Lymphatic Exam: No adenopathy SpO2 Interpretation: normal SpO2: 100 O2 Delivery: Room Air - Course Nursing assessment & vital signs reviewed: Yes EKG Interpreted by Me: RATE (82), Sinus Rhythm, NORMAL AXIS, NORMAL INTERVALS - CT Exams Abdomen/Pelvis CT Interpretation: Tele-radiologist Report (No acute intra-abdominal pathology) Ordered Tests: Active Orders 24 hr Category Date Time Status EKG-ER Only STAT Care 04/02/22 10:46 Active IV Insertion STAT Care 04/02/22 10:46 Active ABDOMEN AND PELVIS W/0 CONTRAS [CT] Stat Exams 04/02/22 12:52 Completed CBC W DIFF Stat Lab 04/02/22 10:10 Completed CMP Stat Lab 04/02/22 10:10 Completed LIPASE Stat Lab 04/02/22 10:10 Completed TROPONIN Q3H Lab 04/02/22 10:10 Completed TROPONIN Q3H Lab 04/02/22 14:34 Completed TROPONIN Q3H Lab 04/02/22 17:00 Completed UA W/RFX CULTURE Stat Lab 04/02/22 16:03 Completed Transfer Order Routine Transfer 04/02/22 Ordered Medication Summary Generic Name Dose Route Start Last Admin Trade Name Freq PRN Reason Stop Dose Admin Sodium Chloride 1,000 mls @ 100 mls/hr 04/02/22 11:00 04/02/22 19:33 Sodium Chloride 0.9% 1000 Ml IV 05/02/22 10:59 Infused .Q10H RASHEL Infusion Dextrose/Sodium Chloride 1,000 mls @ 250 mls/hr 04/02/22 17:30 04/02/22 18:20 Dextrose 5% -0.45 Nacl 1000 Ml IV 05/02/22 17:29 250 mls/hr .Q4H RASHEL Administration Discontinued Medications Generic Name Dose Route Start Last Admin Trade Name Freq PRN Reason Stop Dose Admin Al Hydrox/Mg Hydrox/Simethicone Confirm 04/02/22 16:32 Mag Hydrox/Al Hydrox/Simeth 30 Ml Udcup Administered 04/02/22 16:33 Dose 30 ml .ROUTE .STK-MED ONE Lidocaine HCl Confirm 04/02/22 16:32 Lidocaine Hcl 2% Viscous 15 Ml Udcup Administered 04/02/22 16:33 Dose 15 ml .ROUTE .STK-MED ONE Magnesium Hydroxide 45 ml 04/02/22 16:14 04/02/22 16:33 Mag Hydrx/Alum Hyd/Simeth/Lido 45 Ml Bottle PO 04/02/22 16:15 45 ml STAT ONE Administration Morphine Sulfate 2 mg 04/02/22 10:46 04/02/22 10:51 Morphine Sulfate 2 Mg/Ml Inj IV 04/02/22 10:47 2 mg STAT ONE Administration Morphine Sulfate Confirm 04/02/22 10:50 Morphine Sulfate 2 Mg/Ml Inj Administered 04/02/22 10:51 Dose 2 mg .ROUTE .STK-MED ONE Morphine Sulfate 4 mg 04/02/22 11:20 04/02/22 11:26 Morphine Sulfate 4 Mg/Ml Injection IV 04/02/22 11:21 4 mg STAT ONE Administration Morphine Sulfate Confirm 04/02/22 11:22 Morphine Sulfate 4 Mg/Ml Injection Administered 04/02/22 11:23 Dose 4 mg .ROUTE .STK-MED ONE Morphine Sulfate 2 mg 04/02/22 12:38 04/02/22 12:44 Morphine Sulfate 2 Mg/Ml Inj IV 04/02/22 12:39 2 mg STAT ONE Administration Morphine Sulfate Confirm 04/02/22 12:42 Morphine Sulfate 2 Mg/Ml Inj Administered 04/02/22 12:43 Dose 2 mg .ROUTE .STK-MED ONE Ondansetron HCl 4 mg 04/02/22 10:46 04/02/22 10:51 Ondansetron Hcl 4 Mg/2 Ml Vial IV 04/02/22 10:47 4 mg STAT ONE Administration Ondansetron HCl Confirm 04/02/22 10:50 Ondansetron Hcl 4 Mg/2 Ml Vial Administered 04/02/22 10:51 Dose 4 mg .ROUTE .STK-MED ONE Ondansetron HCl 4 mg 04/02/22 11:20 04/02/22 11:26 Ondansetron Hcl 4 Mg/2 Ml Vial IV 04/02/22 11:21 4 mg STAT ONE Administration Ondansetron HCl Confirm 04/02/22 11:22 Ondansetron Hcl 4 Mg/2 Ml Vial Administered 04/02/22 11:23 Dose 4 mg .ROUTE .STK-MED ONE Pantoprazole Sodium 40 mg 04/02/22 18:18 04/02/22 18:56 Pantoprazole 40 Mg Vial IV 04/02/22 18:19 40 mg STAT ONE Administration Pantoprazole Sodium Confirm 04/02/22 18:56 Pantoprazole 40 Mg Vial Administered 04/02/22 18:57 Dose 40 mg IV .STK-MED ONE Lab/Rad Data: Laboratory Result Diagrams 04/02/22 10:10 04/02/22 10:10 Laboratory Results 04/02/22 04/02/22 04/02/22 Range/Units 20:42 17:00 16:03 WBC (4.0-10.5) x10^3/uL RBC (4.1-5.4) x10^6/uL Hgb (12.0-16.0) g/dL Hct (35-47) % MCV (78-100) fL MCH (26-32) pg MCHC (32-36) g/dL RDW (11.5-14.0) % Plt Count (150-450) x10^3/uL MPV (7.5-11.0) fL Gran % (36.0-66.0) % Immature Gran % (Auto) (0.00-0.4) % Nucleat RBC Rel Count (0.00-0.1) % Eos # (Auto) (0-0.5) x10^3/uL Immature Gran # (Auto) (0.00-0.03) x10^3u/L Absolute Lymphs (auto) (1.0-4.6) x10^3/uL Absolute Monos (auto) (0.0-1.3) x10^3/uL Absolute Nucleated RBC (0.00-0.01) x10^3u/L Lymphocytes % (24.0-44.0) % Monocytes % (0.0-12.0) % Eosinophils % (0.00-5.0) % Basophils % (0.0-0.4) % Absolute Granulocytes (1.4-6.9) x10^3/uL Basophils # (0-0.4) x10^3/uL Sodium (137-145) mmol/L Potassium (3.5-5.1) mmol/L Chloride (98-107) mmol/L Carbon Dioxide (22-30) mmol/L Anion Gap (5-15) MEQ/L BUN (7-17) mg/dL Creatinine (0.52-1.04) mg/dL Estimated GFR ML/MIN Glucose (74-106) mg/dL Calcium (8.4-10.2) mg/dL Total Bilirubin (0.2-1.3) mg/dL AST (14-36) U/L ALT (0-35) U/L Alkaline Phosphatase (38-126) U/L Troponin I < 0.012 (0.000-0.034) ng/mL Serum Total Protein (6.3-8.2) g/dL Albumin (3.5-5.0) g/dL Lipase (23-300) U/L Urinalys Dipstick Clnc MAIN LAB Urine Color YELLOW (YELLOW) Urine Appearance CLEAR (CLEAR) Urine pH >=9.0 (5-6) Ur Specific [place] 1.020 (1.005-1.025) POC Urine Protein Conf 30 (Negative) Urine Ketones LARGE-80 (NEGATIVE) Urine Nitrite NEGATIVE (NEGATIVE) Urine Bilirubin NEGATIVE (NEGATIVE) Urine Urobilinogen 0.2 (0-1) mg/dL Urine Leukocytes NEGATIVE (NEGATIVE) Urine WBC (Auto) NONE (0-5) /HPF Urine RBC (Auto) 3-5 (0-2) /HPF U Epithel Cells (Auto) RARE (FEW) /HPF Urine Bacteria (Auto) NONE (NEGATIVE) /HPF Urine RBC TRACE-INTACT (0-5) Ajay/ul Urine Mucus (Auto) SLIGHT (NEGATIVE) /HPF Ur Culture Indicated? NO Urine Glucose NEGATIVE (NEGATIVE) mg/dL Influenza Type A Ag NEGATIVE (NEGATIVE) Influenza Type B Ag NEGATIVE (NEGATIVE) RSV (PCR) NEGATIVE (Negative) SARS-CoV-2 (PCR) NEGATIVE (NEGATIVE) 04/02/22 04/02/22 04/02/22 Range/Units 14:34 10:10 10:10 WBC (4.0-10.5) x10^3/uL RBC (4.1-5.4) x10^6/uL Hgb (12.0-16.0) g/dL Hct (35-47) % MCV (78-100) fL MCH (26-32) pg MCHC (32-36) g/dL RDW (11.5-14.0) % Plt Count (150-450) x10^3/uL MPV (7.5-11.0) fL Gran % (36.0-66.0) % Immature Gran % (Auto) (0.00-0.4) % Nucleat RBC Rel Count (0.00-0.1) % Eos # (Auto) (0-0.5) x10^3/uL Immature Gran # (Auto) (0.00-0.03) x10^3u/L Absolute Lymphs (auto) (1.0-4.6) x10^3/uL Absolute Monos (auto) (0.0-1.3) x10^3/uL Absolute Nucleated RBC (0.00-0.01) x10^3u/L Lymphocytes % (24.0-44.0) % Monocytes % (0.0-12.0) % Eosinophils % (0.00-5.0) % Basophils % (0.0-0.4) % Absolute Granulocytes (1.4-6.9) x10^3/uL Basophils # (0-0.4) x10^3/uL Sodium 133 L (137-145) mmol/L Potassium 3.5 (3.5-5.1) mmol/L Chloride 100 (98-107) mmol/L Carbon Dioxide 24 (22-30) mmol/L Anion Gap 11.5 (5-15) MEQ/L BUN 4 L (7-17) mg/dL Creatinine 0.65 (0.52-1.04) mg/dL Estimated GFR > 60.0 ML/MIN Glucose 134 H (74-106) mg/dL Calcium 9.5 (8.4-10.2) mg/dL Total Bilirubin 1.00 (0.2-1.3) mg/dL AST 46 H (14-36) U/L ALT 52 H (0-35) U/L Alkaline Phosphatase 175 H (38-126) U/L Troponin I < 0.012 < 0.012 (0.000-0.034) ng/mL Serum Total Protein 8.3 H (6.3-8.2) g/dL Albumin 4.5 (3.5-5.0) g/dL Lipase 44 (23-300) U/L Urinalys Dipstick Clnc Urine Color (YELLOW) Urine Appearance (CLEAR) Urine pH (5-6) Ur Specific [place] (1.005-1.025) POC Urine Protein Conf (Negative) Urine Ketones (NEGATIVE) Urine Nitrite (NEGATIVE) Urine Bilirubin (NEGATIVE) Urine Urobilinogen (0-1) mg/dL Urine Leukocytes (NEGATIVE) Urine WBC (Auto) (0-5) /HPF Urine RBC (Auto) (0-2) /HPF U Epithel Cells (Auto) (FEW) /HPF Urine Bacteria (Auto) (NEGATIVE) /HPF Urine RBC (0-5) Ajay/ul Urine Mucus (Auto) (NEGATIVE) /HPF Ur Culture Indicated? Urine Glucose (NEGATIVE) mg/dL Influenza Type A Ag (NEGATIVE) Influenza Type B Ag (NEGATIVE) RSV (PCR) (Negative) SARS-CoV-2 (PCR) (NEGATIVE) 04/02/22 Range/Units 10:10 WBC 12.5 H (4.0-10.5) x10^3/uL RBC 5.03 (4.1-5.4) x10^6/uL Hgb 17.3 H (12.0-16.0) g/dL Hct 48.6 H (35-47) % MCV 96.6 (78-100) fL MCH 34.4 H (26-32) pg MCHC 35.6 (32-36) g/dL RDW 11.0 L (11.5-14.0) % Plt Count 301 (150-450) x10^3/uL MPV 9.3 (7.5-11.0) fL Gran % 87.9 H (36.0-66.0) % Immature Gran % (Auto) 0.2 (0.00-0.4) % Nucleat RBC Rel Count 0.0 (0.00-0.1) % Eos # (Auto) 0.01 (0-0.5) x10^3/uL Immature Gran # (Auto) 0.03 (0.00-0.03) x10^3u/L Absolute Lymphs (auto) 1.10 (1.0-4.6) x10^3/uL Absolute Monos (auto) 0.34 (0.0-1.3) x10^3/uL Absolute Nucleated RBC 0.00 (0.00-0.01) x10^3u/L Lymphocytes % 8.8 L (24.0-44.0) % Monocytes % 2.7 (0.0-12.0) % Eosinophils % 0.1 (0.00-5.0) % Basophils % 0.3 (0.0-0.4) % Absolute Granulocytes 10.94 H (1.4-6.9) x10^3/uL Basophils # 0.04 (0-0.4) x10^3/uL Sodium (137-145) mmol/L Potassium (3.5-5.1) mmol/L Chloride (98-107) mmol/L Carbon Dioxide (22-30) mmol/L Anion Gap (5-15) MEQ/L BUN (7-17) mg/dL Creatinine (0.52-1.04) mg/dL Estimated GFR ML/MIN Glucose (74-106) mg/dL Calcium (8.4-10.2) mg/dL Total Bilirubin (0.2-1.3) mg/dL AST (14-36) U/L ALT (0-35) U/L Alkaline Phosphatase (38-126) U/L Troponin I (0.000-0.034) ng/mL Serum Total Protein (6.3-8.2) g/dL Albumin (3.5-5.0) g/dL Lipase (23-300) U/L Urinalys Dipstick Clnc Urine Color (YELLOW) Urine Appearance (CLEAR) Urine pH (5-6) Ur Specific [place] (1.005-1.025) POC Urine Protein Conf (Negative) Urine Ketones (NEGATIVE) Urine Nitrite (NEGATIVE) Urine Bilirubin (NEGATIVE) Urine Urobilinogen (0-1) mg/dL Urine Leukocytes (NEGATIVE) Urine WBC (Auto) (0-5) /HPF Urine RBC (Auto) (0-2) /HPF U Epithel Cells (Auto) (FEW) /HPF Urine Bacteria (Auto) (NEGATIVE) /HPF Urine RBC (0-5) Ajay/ul Urine Mucus (Auto) (NEGATIVE) /HPF Ur Culture Indicated? Urine Glucose (NEGATIVE) mg/dL Influenza Type A Ag (NEGATIVE) Influenza Type B Ag (NEGATIVE) RSV (PCR) (Negative) SARS-CoV-2 (PCR) (NEGATIVE) - Progress Progress: improved Progress Note: Patient reassessed. She feels much better. Patient received a GI cocktail for which significantly improved her pain. CT abdomen pelvis shows no acute intra- abdominal process. Patient has a slight leukocytosis. Urinalysis negative. Patient received normal saline and D50. Patient also received Protonix. Prescription for Protonix was forwarded to patient's pharmacy. No indication for further work-up at this time. Will discharge home. Patient agrees to follow-up with primary care doctor within 48 hours for evaluation. 04/02/22 18:17 Portions of this note were created with voice recognition technology. There may be grammatical, spelling, punctuation or sound alike errors 04/02/22 18:21 At discharge patient told nurse that her pain was returning and she was feeling nauseous. Patient stated that she was not ready for discharge. We contacted patient's GI physician who is being covered by his partner. Partner stated that patient typically gets admitted for IV fluids and pain control until symptoms resolve. We contacted Dr. Parada covering Dr. Galvez. Dr. Parada advised that we should admit patient under Dr. Galvez. Patient will be endorsed to Dr. Galvez in the morning by Dr. Parada. Plan of care discussed with patient. She agrees to admission [facility] for further evaluation and treatment. Portions of this note were created with voice recognition technology. There may be grammatical, spelling, punctuation or sound alike errors 04/02/22 21:51 COVID test negative 04/02/22 21:52 Counseled pt/family regarding: lab results, diagnosis, need for follow-up, rad results - Departure Departure Disposition: Home Clinical Impression: Abdominal pain, Leukocytosis, Polycythemia, Elevated alkaline phosphatase level, Hiatal hernia, Nausea and vomiting Condition: Stable Critical Care Time: No Referrals: SAHRA GALVEZ MD [Primary Care Provider] - Follow up/PCP as directed Instructions: Abdominal Pain, Adult ED, Nausea and Vomiting, Adult ED Additional Instructions: Discharge/Care Plan SVITLANAJUNIOR JARRELL was seen on 04/02/22 in the Emergency Room. The patient was counseled regarding Diagnosis,Lab results, Imaging studies, need for follow up and when to return to the Emergency Room. Prescriptions given: Discharge Note I have spoken with the patient and/or caregivers. I have explained the patient's condition, diagnosis and treatment plan based on the information available to me at this time. I have answered the patient's and/or caregiver's questions and addressed any concerns. The patient and/or caregivers have as good understanding of the patient's diagnosis, condition and treatment plan as can be expected at this point. The vital signs have been stable. The patient's condition is stable and appropriate for discharge from the emergency department. The patient will pursue further outpatient evaluation with the primary care physician or other designated or consulting physician as outlined in the discharge instructions. The patient and/or caregivers are agreeable to this plan of care and follow-up instructions have been explained in detail. The patient and/or caregivers have received these instruction. The patient/and or caregivers are aware that any significant change in condition or worsening of symptoms should prompt an immediate return to this or the closest emergency department or call 911. Prescriptions: PANTOPRAZOLE 40 mg Tablet [Protonix 40MG Tablet] 40 mg PO QPM 14 Days #14 tab
[2022-04-02 11:04] LABS: Absolute Neutrophil Ct (ANC) 10.94 x10^3/uL (1.4-6.9); Basophil (Absolute #) 0.04 x10^3/uL (0-0.4); Eosinophil % 0.1 % (0.00-5.0); Eosinophil (Absolute #) 0.01 x10^3/uL (0-0.5); Hematocrit 48.6 % (35-47); Hemoglobin 17.3 g/dL (12.0-16.0); Lymphocytes % 8.8 % (24.0-44.0); Mean Cell Volume 96.6 fL (78-100); Mean Corpuscular Hemoglobin 34.4 pg (26-32); Mean Corpuscular Hgb Concent. 35.6 g/dL (32-36); Mean Platelet Volume 9.3 fL (7.5-11.0); Monocyte (Absolute #) 0.34 x10^3/uL (0.0-1.3); Monocytes % 2.7 % (0.0-12.0); Neutrophil % 87.9 % (36.0-66.0); Platelet Count 301 x10^3/uL (150-450); Red Blood Count 5.03 x10^6/uL (4.1-5.4); White Blood Count 12.5 x10^3/uL (4.0-10.5)
[2022-04-02 11:17] LABS: ALBUMIN 4.5 g/dL (3.5-5.0); ALKALINE PHOSPHATASE 175 U/L (38-126); ANION GAP 11.5 MEQ/L (5-15); BLOOD UREA NITROGEN 4 mg/dL (7-17); CHLORIDE 100 mmol/L (98-107); Calcium 9.5 mg/dL (8.4-10.2); Carbon Dioxide 24 mmol/L (22-30); Creatinine 1 0.65 mg/dL (0.52-1.04); EST GLOMERULAR FILTRATION RATE > 60.0 ML/MIN; Glucose 134 mg/dL (74-106); LIPASE 44 U/L (23-300); Potassium 3.5 mmol/L (3.5-5.1); SGOT/AST 46 U/L (14-36); SGPT/ALT 52 U/L (0-35); SODIUM 133 mmol/L (137-145); Total Protein 8.3 g/dL (6.3-8.2)
[2022-04-02] MEDS ORDERED: MORPHINE SULFATE 4 MG INJ IV ONE (11:20)
[2022-04-02] MEDS ORDERED: MORPHINE SULFATE 4 MG INJ ONE (11:22)
--- NOTE | 2022-04-02 14:38 | XRAY ---
Exam: CT of the abdomen and pelvis without IV contrast from 04/02/2022. CTDI: 7.34 mGy Comparison: CT of the abdomen and pelvis without IV contrast from 08/28/2021. Indication: 32-year-old female with diffuse abdominal pain; history of prior cholecystectomy. Technique: Non-IV contrast axial images were obtained through the abdomen and pelvis. Reconstructed coronal and sagittal images were created and reviewed. No oral contrast was given. Findings: The lung bases appear clear. I again see a small hiatal hernia. Moderate fluid/secretions are seen within the stomach lumen. Assessment of the solid organs is limited without the use of IV contrast. The liver and spleen appear of normal size and uniform attenuation. No intrahepatic biliary duct distention is seen. Surgical clips consistent with prior cholecystectomy are seen within the right upper quadrant. The pancreas and adrenal glands appear unremarkable. The kidneys appear of normal size, shape, and axis. No renal calculi or hydronephrosis is seen. The ureters appear of normal diameter without definite ureterolith. The abdominal aorta is of normal diameter. No abnormal retroperitoneal lymphadenopathy is seen. No ventral abdominal wall hernia or free intraperitoneal air is seen. The bowel does not appear obstructed. Some scattered colonic stool is seen. I see no findings to suggest acute appendicitis within the right lower quadrant. The uterus is anteflexed and tilted toward the right. An IUD is seen in satisfactory position within the upper uterine segment. The ovaries appeared grossly unremarkable. No abnormal pelvic mass or pelvic lymphadenopathy is seen. No free intraperitoneal fluid is seen. The skeleton reveals no fracture or other aggressive bone lesion. Impression: 1. I again see evidence of a small hiatal hernia, surgical clips consistent with prior cholecystectomy, and an IUD which appears to be in satisfactory position. 2. I see no evidence of acute appendicitis or other acute intra-abdominal or pelvic process.
[2022-04-02] MEDS ORDERED: GI COCKTAIL 45 ML (Maalox/Lidocaine) PO ONE (16:14)
[2022-04-02 16:22] LABS: Appearance CLEAR (CLEAR); Bilirubin NEGATIVE (NEGATIVE); Epithelial Cells RARE /HPF (FEW); Glucose NEGATIVE (NEGATIVE); Ketones LARGE-80 (NEGATIVE); Mucus SLIGHT /HPF (NEGATIVE)
[2022-04-02 16:23] LABS: Dipstick done @ ? MAIN LAB; Nitrite NEGATIVE (NEGATIVE); Ph >=9.0 (5-6); Protein,Urine Dip 30 (Negative); RBC TRACE-INTACT Ery/ul (0-5); Urine Cultured Indicated? NO; Urobilinogen 0.2 mg/dL (0-1)
[2022-04-02] MEDS ORDERED: MAALOX ES 30 ML UNIT DOSE ONE (16:32)
[2022-04-02] MEDS ORDERED: XYLOCAINE VISCOUS 2% 15 ML CUP ONE (16:32)
[2022-04-02] MEDS ORDERED: PROTONIX 40 MG IV IV ONE ×2 (18:18→18:56)
[2022-04-02] MEDS ORDERED: Dextrose 5% -0.45 NaCl 1000 ML 1,000 ML IV ONE (18:19)
[2022-04-02] MEDS: Dextrose 5% -0.45 NaCl 1000 ML 1,000 ML IV SCH (18:20)
[2022-04-02 21:20] LABS: INFLUENZA A NEGATIVE (NEGATIVE); INFLUENZA B NEGATIVE (NEGATIVE); RESPIRATORY SYNCTIAL VIRUS NEGATIVE (Negative); SARS-CoV-2 Xpert Express NEGATIVE (NEGATIVE)
[2022-04-02] MEDS: MORPHINE SULFATE 4 MG INJ IV PRN (22:57)
[2022-04-02] MEDS: Zofran 4 MG/2 ML VIAL IV PRN (23:11)
[2022-04-03 05:25] LABS: Absolute Neutrophil Ct (ANC) 12.41 x10^3/uL (1.4-6.9); Basophil (Absolute #) 0.03 x10^3/uL (0-0.4); Eosinophil % 0.3 % (0.00-5.0); Eosinophil (Absolute #) 0.05 x10^3/uL (0-0.5); Hematocrit 46.2 % (35-47); Hemoglobin 16.1 g/dL (12.0-16.0); Lymphocyte (Absolute #) 2.52 x10^3/uL (1.0-4.6); Mean Cell Volume 97.1 fL (78-100); Mean Corpuscular Hemoglobin 33.8 pg (26-32); Mean Corpuscular Hgb Concent. 34.8 g/dL (32-36); Mean Platelet Volume 9.3 fL (7.5-11.0); Monocytes % 4.4 % (0.0-12.0); Neutrophil % 78.7 % (36.0-66.0); Platelet Count 288 x10^3/uL (150-450); Red Blood Count 4.76 x10^6/uL (4.1-5.4); Red Cell Distribution Width 11.1 % (11.5-14.0); White Blood Count 15.8 x10^3/uL (4.0-10.5)
[2022-04-03] MEDS: MORPHINE SULFATE 4 MG INJ IV PRN ×4 (05:33→17:52)
[2022-04-03] MEDS: Zofran 4 MG/2 ML VIAL IV PRN ×2 (05:33→13:36)
[2022-04-03 05:49] LABS: ALBUMIN 3.6 g/dL (3.5-5.0); ALKALINE PHOSPHATASE 130 U/L (38-126); ANION GAP 9.4 MEQ/L (5-15); CHLORIDE 102 mmol/L (98-107); Calcium 8.6 mg/dL (8.4-10.2); Carbon Dioxide 26 mmol/L (22-30); Creatinine 1 0.59 mg/dL (0.52-1.04); EST GLOMERULAR FILTRATION RATE > 60.0 ML/MIN; Glucose 101 mg/dL (74-106); Potassium 3.1 mmol/L (3.5-5.1); SGOT/AST 29 U/L (14-36); SGPT/ALT 36 U/L (0-35); SODIUM 134 mmol/L (137-145); Total Protein 6.9 g/dL (6.3-8.2)
[2022-04-03 05:51] LABS: BLOOD UREA NITROGEN < 2 mg/dL (7-17)
[2022-04-03] MEDS: Sodium Chloride 0.9% 1000 ML 1,000 ML IV SCH ×2 (07:11→10:55)
[2022-04-03] MEDS: Dextrose 5% -0.45 NaCl 1000 ML 1,000 ML IV SCH (07:12)
[2022-04-03] MEDS ORDERED: MEDICATION INTERVENTION MC SCH (08:45)
--- NOTE | 2022-04-03 08:56 | PCM.SSS ---
History of Present Illness - Chief Complaint Chief Complaint: Intractable abdominal pain History of Present Illness: is a 32 year old female pt of Dr. Galvez with hx IBS who was admitted yesterday through ER with abd pain and vomiting. She had woken at 4 am and vomited x 10 by the time she got to ER. CT abd/pelvis was nonacute. She was given GI cocktail and felt better so was going to be discharged to home when sx recurred. The ER doctor spoke with the on-call for her GI doctor and pt was admitted for IV fluids and pain control. Pt's pain has been epigastric/LUQ/RUQ, 9/10, constant, sharp/crampy/achy. She has had multiple admissions for same in the past. She is feeling better this morning, 4-5/10 pain. She is trying to tolerate some po today; if she can tolerate food she would like to discharge to be home, which would be fine. - Review of Systems Abdominal/Gastrointestinal: Abdominal Pain, Nausea, Vomiting Psychological: Anxiety, Depression, Other (started seeing psychiatrist this month. Smokes 3/4 PPD TOB. Occ THC.), No Suicidal Ideations, No Homicidal Ideations Medications & Allergies Home Medications: Home Medication List Promethazine HCl 25 mg [Phenergan 25 mg] 25 mg PO Q8H PRN PRN #10 tablet 04/29/20 [Rx Confirmed 04/02/22] Amitriptyline HCl 10 mg [Elavil 10 mg] 50 mg PO HS 04/03/21 [History Confirmed 04/02/22] Duloxetine HCl 30 mg [Cymbalta 30 MG Capsule] 60 mg PO DAILY 08/28/21 [History Confirmed 04/02/22] Ondansetron ODT 4 MG [Zofran Odt 4 mg] 1 ea PO QIDPRN PRN #7 tablet 08/28/21 [Rx Confirmed 04/02/22] PANTOPRAZOLE 40 mg Tablet [Protonix 40MG Tablet] 40 mg PO QPM 14 Days #14 tab 04/02/22 [Rx] Prazosin HCl [Minipress] 1 mg PO DAILY 04/02/22 [History Confirmed 04/02/22] Propranolol HCl 10 mg PO DAILY 04/02/22 [History Confirmed 04/02/22] Allergies/Adverse Reactions: Allergies Allergy/AdvReac Type Severity Reaction Status Date / Time cephalexin monohydrate Allergy Mild Hives Verified 04/02/22 10:36 [From Keflex] - Past Medical History Past Medical History: Yes Neurological History: No Pertinent History ENT History: Other Cardiac History: No Pertinent History Respiratory History: No Pertinent History Endocrine Medical History: No Pertinent History Musculoskelatal History: Other GI Medical History: Irritable Bowel History: Other Pyscho-Social History: Anxiety, Depression Reproductive Disorders: No Pertinent History Comment: IBS. Recent ACL reconstruction in 2020 - Female History Are you now?: No - Past Surgical History Past Surgical History: Yes Neuro Surgical History: No Pertinent History Cardiac History: No Pertinent History Respiratory Surgery: No Pertinent History GI Surgical History: Cholecystectomy Genitourinary Surgical Hx: No Pertinent History Musculskeletal Surgical Hx: Orthopedic Surgery Female Surgical History: No Pertinent History Other Surgical History: knee - tonsils - adenoids - tubes in ears. nicole - Social History Smoking Status: Current every day smoker How long have you smoked: 13 Exposure to second hand smoke: Yes Alcohol: Rarely Drug Use: marijuana - Physical Exam Vital Signs: Vital Signs - 24 hr Temp Pulse Resp BP BP Pulse Ox 04/03/22 07:56 98.0 F 94 H 16 158/86 98 04/03/22 04:00 98.4 F 78 19 157/102 98 04/02/22 23:52 97.7 F 76 20 206/94 98 04/02/22 22:35 97.7 F 76 20 206/94 98 04/02/22 22:22 98 04/02/22 21:53 100 04/02/22 18:29 17 04/02/22 14:42 75 18 04/02/22 13:10 82 20 100 04/02/22 12:55 74 19 164/107 100 04/02/22 11:57 77 18 155/106 04/02/22 10:29 97.9 F 77 194/127 100 Results - Labs Lab/Micro Results: Lab Results-Last 24 Hours 04/02/22 04/02/22 04/02/22 Range/Units 10:10 10:10 10:10 WBC 12.5 H (4.0-10.5) x10^3/uL RBC 5.03 (4.1-5.4) x10^6/uL Hgb 17.3 H (12.0-16.0) g/dL Hct 48.6 H (35-47) % MCV 96.6 (78-100) fL MCH 34.4 H (26-32) pg MCHC 35.6 (32-36) g/dL RDW 11.0 L (11.5-14.0) % Plt Count 301 (150-450) x10^3/uL MPV 9.3 (7.5-11.0) fL Gran % 87.9 H (36.0-66.0) % Immature Gran % (Auto) 0.2 (0.00-0.4) % Nucleat RBC Rel Count 0.0 (0.00-0.1) % Eos # (Auto) 0.01 (0-0.5) x10^3/uL Immature Gran # (Auto) 0.03 (0.00-0.03) x10^3u/L Absolute Lymphs (auto) 1.10 (1.0-4.6) x10^3/uL Absolute Monos (auto) 0.34 (0.0-1.3) x10^3/uL Absolute Nucleated RBC 0.00 (0.00-0.01) x10^3u/L Lymphocytes % 8.8 L (24.0-44.0) % Monocytes % 2.7 (0.0-12.0) % Eosinophils % 0.1 (0.00-5.0) % Basophils % 0.3 (0.0-0.4) % Absolute Granulocytes 10.94 H (1.4-6.9) x10^3/uL Basophils # 0.04 (0-0.4) x10^3/uL Sodium 133 L (137-145) mmol/L Potassium 3.5 (3.5-5.1) mmol/L Chloride 100 (98-107) mmol/L Carbon Dioxide 24 (22-30) mmol/L Anion Gap 11.5 (5-15) MEQ/L BUN 4 L (7-17) mg/dL Creatinine 0.65 (0.52-1.04) mg/dL Estimated GFR > 60.0 ML/MIN Glucose 134 H (74-106) mg/dL Calcium 9.5 (8.4-10.2) mg/dL Total Bilirubin 1.00 (0.2-1.3) mg/dL AST 46 H (14-36) U/L ALT 52 H (0-35) U/L Alkaline Phosphatase 175 H (38-126) U/L Troponin I < 0.012 (0.000-0.034) ng/mL Serum Total Protein 8.3 H (6.3-8.2) g/dL Albumin 4.5 (3.5-5.0) g/dL Lipase 44 (23-300) U/L Urinalys Dipstick Clnc Urine Color (YELLOW) Urine Appearance (CLEAR) Urine pH (5-6) Ur Specific [place] (1.005-1.025) POC Urine Protein Conf (Negative) Urine Ketones (NEGATIVE) Urine Nitrite (NEGATIVE) Urine Bilirubin (NEGATIVE) Urine Urobilinogen (0-1) mg/dL Urine Leukocytes (NEGATIVE) Urine WBC (Auto) (0-5) /HPF Urine RBC (Auto) (0-2) /HPF U Epithel Cells (Auto) (FEW) /HPF Urine Bacteria (Auto) (NEGATIVE) /HPF Urine RBC (0-5) Ajay/ul Urine Mucus (Auto) (NEGATIVE) /HPF Ur Culture Indicated? Urine Glucose (NEGATIVE) mg/dL Influenza Type A Ag (NEGATIVE) Influenza Type B Ag (NEGATIVE) RSV (PCR) (Negative) SARS-CoV-2 (PCR) (NEGATIVE) 04/02/22 04/02/22 04/02/22 Range/Units 14:34 16:03 17:00 WBC (4.0-10.5) x10^3/uL RBC (4.1-5.4) x10^6/uL Hgb (12.0-16.0) g/dL Hct (35-47) % MCV (78-100) fL MCH (26-32) pg MCHC (32-36) g/dL RDW (11.5-14.0) % Plt Count (150-450) x10^3/uL MPV (7.5-11.0) fL Gran % (36.0-66.0) % Immature Gran % (Auto) (0.00-0.4) % Nucleat RBC Rel Count (0.00-0.1) % Eos # (Auto) (0-0.5) x10^3/uL Immature Gran # (Auto) (0.00-0.03) x10^3u/L Absolute Lymphs (auto) (1.0-4.6) x10^3/uL Absolute Monos (auto) (0.0-1.3) x10^3/uL Absolute Nucleated RBC (0.00-0.01) x10^3u/L Lymphocytes % (24.0-44.0) % Monocytes % (0.0-12.0) % Eosinophils % (0.00-5.0) % Basophils % (0.0-0.4) % Absolute Granulocytes (1.4-6.9) x10^3/uL Basophils # (0-0.4) x10^3/uL Sodium (137-145) mmol/L Potassium (3.5-5.1) mmol/L Chloride (98-107) mmol/L Carbon Dioxide (22-30) mmol/L Anion Gap (5-15) MEQ/L BUN (7-17) mg/dL Creatinine (0.52-1.04) mg/dL Estimated GFR ML/MIN Glucose (74-106) mg/dL Calcium (8.4-10.2) mg/dL Total Bilirubin (0.2-1.3) mg/dL AST (14-36) U/L ALT (0-35) U/L Alkaline Phosphatase (38-126) U/L Troponin I < 0.012 < 0.012 (0.000-0.034) ng/mL Serum Total Protein (6.3-8.2) g/dL Albumin (3.5-5.0) g/dL Lipase (23-300) U/L Urinalys Dipstick Clnc MAIN LAB Urine Color YELLOW (YELLOW) Urine Appearance CLEAR (CLEAR) Urine pH >=9.0 (5-6) Ur Specific [place] 1.020 (1.005-1.025) POC Urine Protein Conf 30 (Negative) Urine Ketones LARGE-80 (NEGATIVE) Urine Nitrite NEGATIVE (NEGATIVE) Urine Bilirubin NEGATIVE (NEGATIVE) Urine Urobilinogen 0.2 (0-1) mg/dL Urine Leukocytes NEGATIVE (NEGATIVE) Urine WBC (Auto) NONE (0-5) /HPF Urine RBC (Auto) 3-5 (0-2) /HPF U Epithel Cells (Auto) RARE (FEW) /HPF Urine Bacteria (Auto) NONE (NEGATIVE) /HPF Urine RBC TRACE-INTACT (0-5) Ajay/ul Urine Mucus (Auto) SLIGHT (NEGATIVE) /HPF Ur Culture Indicated? NO Urine Glucose NEGATIVE (NEGATIVE) mg/dL Influenza Type A Ag (NEGATIVE) Influenza Type B Ag (NEGATIVE) RSV (PCR) (Negative) SARS-CoV-2 (PCR) (NEGATIVE) 04/02/22 04/03/22 04/03/22 Range/Units 20:42 04:45 04:45 WBC 15.8 H (4.0-10.5) x10^3/uL RBC 4.76 (4.1-5.4) x10^6/uL Hgb 16.1 H (12.0-16.0) g/dL Hct 46.2 (35-47) % MCV 97.1 (78-100) fL MCH 33.8 H (26-32) pg MCHC 34.8 (32-36) g/dL RDW 11.1 L (11.5-14.0) % Plt Count 288 (150-450) x10^3/uL MPV 9.3 (7.5-11.0) fL Gran % 78.7 H (36.0-66.0) % Immature Gran % (Auto) 0.4 (0.00-0.4) % Nucleat RBC Rel Count 0.0 (0.00-0.1) % Eos # (Auto) 0.05 (0-0.5) x10^3/uL Immature Gran # (Auto) 0.06 H (0.00-0.03) x10^3u/L Absolute Lymphs (auto) 2.52 (1.0-4.6) x10^3/uL Absolute Monos (auto) 0.70 (0.0-1.3) x10^3/uL Absolute Nucleated RBC 0.00 (0.00-0.01) x10^3u/L Lymphocytes % 16.0 L (24.0-44.0) % Monocytes % 4.4 (0.0-12.0) % Eosinophils % 0.3 (0.00-5.0) % Basophils % 0.2 (0.0-0.4) % Absolute Granulocytes 12.41 H (1.4-6.9) x10^3/uL Basophils # 0.03 (0-0.4) x10^3/uL Sodium 134 L (137-145) mmol/L Potassium 3.1 L (3.5-5.1) mmol/L Chloride 102 (98-107) mmol/L Carbon Dioxide 26 (22-30) mmol/L Anion Gap 9.4 (5-15) MEQ/L BUN < 2 L (7-17) mg/dL Creatinine 0.59 (0.52-1.04) mg/dL Estimated GFR > 60.0 ML/MIN Glucose 101 (74-106) mg/dL Calcium 8.6 (8.4-10.2) mg/dL Total Bilirubin 0.80 (0.2-1.3) mg/dL AST 29 (14-36) U/L ALT 36 H (0-35) U/L Alkaline Phosphatase 130 H (38-126) U/L Troponin I (0.000-0.034) ng/mL Serum Total Protein 6.9 (6.3-8.2) g/dL Albumin 3.6 (3.5-5.0) g/dL Lipase (23-300) U/L Urinalys Dipstick Clnc Urine Color (YELLOW) Urine Appearance (CLEAR) Urine pH (5-6) Ur Specific [place] (1.005-1.025) POC Urine Protein Conf (Negative) Urine Ketones (NEGATIVE) Urine Nitrite (NEGATIVE) Urine Bilirubin (NEGATIVE) Urine Urobilinogen (0-1) mg/dL Urine Leukocytes (NEGATIVE) Urine WBC (Auto) (0-5) /HPF Urine RBC (Auto) (0-2) /HPF U Epithel Cells (Auto) (FEW) /HPF Urine Bacteria (Auto) (NEGATIVE) /HPF Urine RBC (0-5) Ajay/ul Urine Mucus (Auto) (NEGATIVE) /HPF Ur Culture Indicated? Urine Glucose (NEGATIVE) mg/dL Influenza Type A Ag NEGATIVE (NEGATIVE) Influenza Type B Ag NEGATIVE (NEGATIVE) RSV (PCR) NEGATIVE (Negative) SARS-CoV-2 (PCR) NEGATIVE (NEGATIVE) - Radiology Impressions Radiology Exams & Impressions: Radiology Procedures Category Date Time Status ABDOMEN AND PELVIS W/0 CONTRAS [CT] Stat Exams 04/02/22 12:52 Completed Assessment/Plan (1) Abdominal pain Current Visit: Yes Status: Acute Qualifiers: Abdominal location: epigastric Qualified Code(s): R10.13 - Epigastric pain Assessment & Plan: some improvement. Code(s): R10.9 - UNSPECIFIED ABDOMINAL PAIN (2) Nausea and vomiting Current Visit: Yes Status: Resolved Assessment & Plan: none since she has reached med surg. If asif po, may be able to discharge to home. Code(s): R11.2 - NAUSEA WITH VOMITING, UNSPECIFIED (3) Irritable bowel syndrome (IBS) Current Visit: No Status: Chronic Qualifiers: Irritable bowel syndrome type: without diarrhea Qualified Code(s): K58.9 - Irritable bowel syndrome without diarrhea (4) Hypokalemia Current Visit: Yes Status: Acute Code(s): E87.6 - HYPOKALEMIA Hospital Summary - Hospital Course Hospital Course: Pt is 32 yo female pt of Dr. Galvez with IBS who was admitted through ER with abd pain/n/v. Multiple admissions for same in the past. CT abd/pelvis non acute. Labs non acute. Does have some hypokalemia today. Will replete that. If she can tolerate po, may be able to discharge to home today, if she is feeling better. - Vitals & Intake/Output Vital Signs: Vital Signs Temperature 98.0 F 04/03/22 07:56 Pulse Rate 94 H 04/03/22 07:56 Respiratory Rate 16 04/03/22 07:56 Blood Pressure 158/86 04/03/22 07:56 O2 Sat by Pulse Oximetry 98 04/03/22 07:56 Intake & Output: Intake & Output 03/31/22 04/01/22 04/02/22 04/03/22 11:59 11:59 11:59 11:59 Intake Total 759 Balance 759 Weight 79.379 kg 78.2 kg - Lab Result Diagrams: 04/03/22 04:45 04/03/22 04:45 Lab Results-Last 24 Hrs: Lab Results-Last 24 Hours 04/02/22 04/02/22 04/02/22 Range/Units 10:10 10:10 10:10 WBC 12.5 H (4.0-10.5) x10^3/uL RBC 5.03 (4.1-5.4) x10^6/uL Hgb 17.3 H (12.0-16.0) g/dL Hct 48.6 H (35-47) % MCV 96.6 (78-100) fL MCH 34.4 H (26-32) pg MCHC 35.6 (32-36) g/dL RDW 11.0 L (11.5-14.0) % Plt Count 301 (150-450) x10^3/uL MPV 9.3 (7.5-11.0) fL Gran % 87.9 H (36.0-66.0) % Immature Gran % (Auto) 0.2 (0.00-0.4) % Nucleat RBC Rel Count 0.0 (0.00-0.1) % Eos # (Auto) 0.01 (0-0.5) x10^3/uL Immature Gran # (Auto) 0.03 (0.00-0.03) x10^3u/L Absolute Lymphs (auto) 1.10 (1.0-4.6) x10^3/uL Absolute Monos (auto) 0.34 (0.0-1.3) x10^3/uL Absolute Nucleated RBC 0.00 (0.00-0.01) x10^3u/L Lymphocytes % 8.8 L (24.0-44.0) % Monocytes % 2.7 (0.0-12.0) % Eosinophils % 0.1 (0.00-5.0) % Basophils % 0.3 (0.0-0.4) % Absolute Granulocytes 10.94 H (1.4-6.9) x10^3/uL Basophils # 0.04 (0-0.4) x10^3/uL Sodium 133 L (137-145) mmol/L Potassium 3.5 (3.5-5.1) mmol/L Chloride 100 (98-107) mmol/L Carbon Dioxide 24 (22-30) mmol/L Anion Gap 11.5 (5-15) MEQ/L BUN 4 L (7-17) mg/dL Creatinine 0.65 (0.52-1.04) mg/dL Estimated GFR > 60.0 ML/MIN Glucose 134 H (74-106) mg/dL Calcium 9.5 (8.4-10.2) mg/dL Total Bilirubin 1.00 (0.2-1.3) mg/dL AST 46 H (14-36) U/L ALT 52 H (0-35) U/L Alkaline Phosphatase 175 H (38-126) U/L Troponin I < 0.012 (0.000-0.034) ng/mL Serum Total Protein 8.3 H (6.3-8.2) g/dL Albumin 4.5 (3.5-5.0) g/dL Lipase 44 (23-300) U/L Urinalys Dipstick Clnc Urine Color (YELLOW) Urine Appearance (CLEAR) Urine pH (5-6) Ur Specific [place] (1.005-1.025) POC Urine Protein Conf (Negative) Urine Ketones (NEGATIVE) Urine Nitrite (NEGATIVE) Urine Bilirubin (NEGATIVE) Urine Urobilinogen (0-1) mg/dL Urine Leukocytes (NEGATIVE) Urine WBC (Auto) (0-5) /HPF Urine RBC (Auto) (0-2) /HPF U Epithel Cells (Auto) (FEW) /HPF Urine Bacteria (Auto) (NEGATIVE) /HPF Urine RBC (0-5) Ajay/ul Urine Mucus (Auto) (NEGATIVE) /HPF Ur Culture Indicated? Urine Glucose (NEGATIVE) mg/dL Influenza Type A Ag (NEGATIVE) Influenza Type B Ag (NEGATIVE) RSV (PCR) (Negative) SARS-CoV-2 (PCR) (NEGATIVE) 04/02/22 04/02/22 04/02/22 Range/Units 14:34 16:03 17:00 WBC (4.0-10.5) x10^3/uL RBC (4.1-5.4) x10^6/uL Hgb (12.0-16.0) g/dL Hct (35-47) % MCV (78-100) fL MCH (26-32) pg MCHC (32-36) g/dL RDW (11.5-14.0) % Plt Count (150-450) x10^3/uL MPV (7.5-11.0) fL Gran % (36.0-66.0) % Immature Gran % (Auto) (0.00-0.4) % Nucleat RBC Rel Count (0.00-0.1) % Eos # (Auto) (0-0.5) x10^3/uL Immature Gran # (Auto) (0.00-0.03) x10^3u/L Absolute Lymphs (auto) (1.0-4.6) x10^3/uL Absolute Monos (auto) (0.0-1.3) x10^3/uL Absolute Nucleated RBC (0.00-0.01) x10^3u/L Lymphocytes % (24.0-44.0) % Monocytes % (0.0-12.0) % Eosinophils % (0.00-5.0) % Basophils % (0.0-0.4) % Absolute Granulocytes (1.4-6.9) x10^3/uL Basophils # (0-0.4) x10^3/uL Sodium (137-145) mmol/L Potassium (3.5-5.1) mmol/L Chloride (98-107) mmol/L Carbon Dioxide (22-30) mmol/L Anion Gap (5-15) MEQ/L BUN (7-17) mg/dL Creatinine (0.52-1.04) mg/dL Estimated GFR ML/MIN Glucose (74-106) mg/dL Calcium (8.4-10.2) mg/dL Total Bilirubin (0.2-1.3) mg/dL AST (14-36) U/L ALT (0-35) U/L Alkaline Phosphatase (38-126) U/L Troponin I < 0.012 < 0.012 (0.000-0.034) ng/mL Serum Total Protein (6.3-8.2) g/dL Albumin (3.5-5.0) g/dL Lipase (23-300) U/L Urinalys Dipstick Clnc MAIN LAB Urine Color YELLOW (YELLOW) Urine Appearance CLEAR (CLEAR) Urine pH >=9.0 (5-6) Ur Specific [place] 1.020 (1.005-1.025) POC Urine Protein Conf 30 (Negative) Urine Ketones LARGE-80 (NEGATIVE) Urine Nitrite NEGATIVE (NEGATIVE) Urine Bilirubin NEGATIVE (NEGATIVE) Urine Urobilinogen 0.2 (0-1) mg/dL Urine Leukocytes NEGATIVE (NEGATIVE) Urine WBC (Auto) NONE (0-5) /HPF Urine RBC (Auto) 3-5 (0-2) /HPF U Epithel Cells (Auto) RARE (FEW) /HPF Urine Bacteria (Auto) NONE (NEGATIVE) /HPF Urine RBC TRACE-INTACT (0-5) Ajay/ul Urine Mucus (Auto) SLIGHT (NEGATIVE) /HPF Ur Culture Indicated? NO Urine Glucose NEGATIVE (NEGATIVE) mg/dL Influenza Type A Ag (NEGATIVE) Influenza Type B Ag (NEGATIVE) RSV (PCR) (Negative) SARS-CoV-2 (PCR) (NEGATIVE) 04/02/22 04/03/22 04/03/22 Range/Units 20:42 04:45 04:45 WBC 15.8 H (4.0-10.5) x10^3/uL RBC 4.76 (4.1-5.4) x10^6/uL Hgb 16.1 H (12.0-16.0) g/dL Hct 46.2 (35-47) % MCV 97.1 (78-100) fL MCH 33.8 H (26-32) pg MCHC 34.8 (32-36) g/dL RDW 11.1 L (11.5-14.0) % Plt Count 288 (150-450) x10^3/uL MPV 9.3 (7.5-11.0) fL Gran % 78.7 H (36.0-66.0) % Immature Gran % (Auto) 0.4 (0.00-0.4) % Nucleat RBC Rel Count 0.0 (0.00-0.1) % Eos # (Auto) 0.05 (0-0.5) x10^3/uL Immature Gran # (Auto) 0.06 H (0.00-0.03) x10^3u/L Absolute Lymphs (auto) 2.52 (1.0-4.6) x10^3/uL Absolute Monos (auto) 0.70 (0.0-1.3) x10^3/uL Absolute Nucleated RBC 0.00 (0.00-0.01) x10^3u/L Lymphocytes % 16.0 L (24.0-44.0) % Monocytes % 4.4 (0.0-12.0) % Eosinophils % 0.3 (0.00-5.0) % Basophils % 0.2 (0.0-0.4) % Absolute Granulocytes 12.41 H (1.4-6.9) x10^3/uL Basophils # 0.03 (0-0.4) x10^3/uL Sodium 134 L (137-145) mmol/L Potassium 3.1 L (3.5-5.1) mmol/L Chloride 102 (98-107) mmol/L Carbon Dioxide 26 (22-30) mmol/L Anion Gap 9.4 (5-15) MEQ/L BUN < 2 L (7-17) mg/dL Creatinine 0.59 (0.52-1.04) mg/dL Estimated GFR > 60.0 ML/MIN Glucose 101 (74-106) mg/dL Calcium 8.6 (8.4-10.2) mg/dL Total Bilirubin 0.80 (0.2-1.3) mg/dL AST 29 (14-36) U/L ALT 36 H (0-35) U/L Alkaline Phosphatase 130 H (38-126) U/L Troponin I (0.000-0.034) ng/mL Serum Total Protein 6.9 (6.3-8.2) g/dL Albumin 3.6 (3.5-5.0) g/dL Lipase (23-300) U/L Urinalys Dipstick Clnc Urine Color (YELLOW) Urine Appearance (CLEAR) Urine pH (5-6) Ur Specific [place] (1.005-1.025) POC Urine Protein Conf (Negative) Urine Ketones (NEGATIVE) Urine Nitrite (NEGATIVE) Urine Bilirubin (NEGATIVE) Urine Urobilinogen (0-1) mg/dL Urine Leukocytes (NEGATIVE) Urine WBC (Auto) (0-5) /HPF Urine RBC (Auto) (0-2) /HPF U Epithel Cells (Auto) (FEW) /HPF Urine Bacteria (Auto) (NEGATIVE) /HPF Urine RBC (0-5) Ajay/ul Urine Mucus (Auto) (NEGATIVE) /HPF Ur Culture Indicated? Urine Glucose (NEGATIVE) mg/dL Influenza Type A Ag NEGATIVE (NEGATIVE) Influenza Type B Ag NEGATIVE (NEGATIVE) RSV (PCR) NEGATIVE (Negative) SARS-CoV-2 (PCR) NEGATIVE (NEGATIVE) - Radiology Exams Ordered Rad Exams-Entire Visit: Radiology Procedures Category Date Time Status ABDOMEN AND PELVIS W/0 CONTRAS [CT] Stat Exams 04/02/22 12:52 Completed - Discharge Disposition: Home, Self-Care Condition: Stable Prescriptions: New PANTOPRAZOLE 40 mg Tablet [Protonix 40MG Tablet] 40 mg PO QPM 14 Days #14 tab Continue Promethazine HCl 25 mg [Phenergan 25 mg] 25 mg PO Q8H PRN PRN #10 tablet PRN Reason: Vomiting Amitriptyline HCl 10 mg [Elavil 10 mg] 50 mg PO HS Duloxetine HCl 30 mg [Cymbalta 30 MG Capsule] 60 mg PO DAILY Ondansetron ODT 4 MG [Zofran Odt 4 mg] 1 ea PO QIDPRN PRN #7 tablet PRN Reason: n/v Propranolol HCl 10 mg PO DAILY Prazosin HCl [Minipress] 1 mg PO DAILY Follow up with: SAHRA GALVEZ MD [Primary Care Provider] - 04/18/22 9:45 am
[2022-04-03] MEDS: Sodium Chloride 0.9% W/ 20 mEq KCl/LITER 1,000 ML IV SCH ×2 (09:25→17:52)
[2022-04-03] MEDS: Klor Con PO SCH ×2 (09:25→09:51)
[2022-04-03] MEDS: Inderal PO SCH ×2 (09:25→09:51)
[2022-04-03] MEDS: NICODERM CQ 14 MG TOP SCH (09:26)
[2022-04-03] MEDS: Cymbalta 30 MG Capsule PO SCH ×2 (09:26→09:50)
[2022-04-03] MEDS ORDERED: PROTONIX 40 MG IV IV SCH (10:00)
[2022-04-03] MEDS ORDERED: PRAZOSIN HCL 1 MG PO SCH (10:00)
[2022-04-03] MEDS: PHENERGAN 25 MG PO PRN ×2 (10:30→19:57)
[2022-04-03 15:39] LABS: ANION GAP 10.7 MEQ/L (5-15); CHLORIDE 100 mmol/L (98-107); Calcium 8.6 mg/dL (8.4-10.2); Carbon Dioxide 27 mmol/L (22-30); Creatinine 1 0.64 mg/dL (0.52-1.04); EST GLOMERULAR FILTRATION RATE > 60.0 ML/MIN; Glucose 89 mg/dL (74-106); MAGNESIUM 1.9 mg/dL (1.6-2.3); Potassium 3.6 mmol/L (3.5-5.1); SODIUM 134 mmol/L (137-145)
[2022-04-03 15:45] LABS: BLOOD UREA NITROGEN < 2 mg/dL (7-17)
[2022-04-03] MEDS: ZOFRAN ODT 4 MG PO PRN ×2 (17:16→22:02)
[2022-04-03] MEDS ORDERED: Protonix 40MG Tablet PO SCH (22:00)
[2022-04-04] MEDS: Sodium Chloride 0.9% W/ 20 mEq KCl/LITER 1,000 ML IV SCH (03:08)
[2022-04-04] MEDS: ZOFRAN ODT 4 MG PO PRN ×2 (03:12→10:51)
[2022-04-04] MEDS: PHENERGAN 25 MG PO PRN (07:28)
[2022-04-04] MEDS ORDERED: Ativan 1 MG PO PRN (08:25)
[2022-04-04] MEDS: Klor Con PO SCH (08:51)
[2022-04-04] MEDS: Inderal PO SCH (08:51)
[2022-04-04] MEDS: NICODERM CQ 14 MG TOP SCH (08:52)
[2022-04-04] MEDS: Cymbalta 30 MG Capsule PO SCH (08:52)
[2022-04-04 08:54] LABS: Absolute Neutrophil Ct (ANC) 9.62 x10^3/uL (1.4-6.9); Basophil (Absolute #) 0.04 x10^3/uL (0-0.4); Eosinophil % 0.5 % (0.00-5.0); Eosinophil (Absolute #) 0.06 x10^3/uL (0-0.5); Hematocrit 47.2 % (35-47); Hemoglobin 16.1 g/dL (12.0-16.0); Lymphocyte (Absolute #) 2.64 x10^3/uL (1.0-4.6); Lymphocytes % 20.1 % (24.0-44.0); Mean Cell Volume 98.7 fL (78-100); Mean Corpuscular Hemoglobin 33.7 pg (26-32); Mean Corpuscular Hgb Concent. 34.1 g/dL (32-36); Mean Platelet Volume 8.9 fL (7.5-11.0); Monocyte (Absolute #) 0.71 x10^3/uL (0.0-1.3); Monocytes % 5.4 % (0.0-12.0); Neutrophil % 73.3 % (36.0-66.0); Platelet Count 276 x10^3/uL (150-450); Red Blood Count 4.78 x10^6/uL (4.1-5.4); Red Cell Distribution Width 10.9 % (11.5-14.0); White Blood Count 13.1 x10^3/uL (4.0-10.5)
[2022-04-04 09:49] LABS: ALBUMIN 4.4 g/dL (3.5-5.0); ALKALINE PHOSPHATASE 129 U/L (38-126); ANION GAP 17.2 MEQ/L (5-15); CHLORIDE 99 mmol/L (98-107); Calcium 9.2 mg/dL (8.4-10.2); Carbon Dioxide 20 mmol/L (22-30); Creatinine 1 0.63 mg/dL (0.52-1.04); EST GLOMERULAR FILTRATION RATE > 60.0 ML/MIN; Glucose 126 mg/dL (74-106); Potassium 3.2 mmol/L (3.5-5.1); SGOT/AST 53 U/L (14-36); SGPT/ALT 41 U/L (0-35); SODIUM 134 mmol/L (137-145); Total Protein 7.9 g/dL (6.3-8.2)
[2022-04-04 10:00] LABS: BLOOD UREA NITROGEN < 2 mg/dL (7-17)
[2022-04-04] MEDS: MORPHINE SULFATE 4 MG INJ IV PRN (10:49)
[2022-04-04 12:22] VITALS: BP 128/69; PULSE 106; O2SAT 100
--- NOTE | 2022-04-04 13:02 | PCM.DS ---
Discharge Summary Date of Admission: 04/02/22 22:15 Admitting Physician: SAHRA GALVEZ Primary Care Provider: SAHRA GALVEZ Allergies Allergies cephalexin monohydrate [From Keflex] Allergy (Mild, Verified 04/02/22 10:36) [facility] Summary - Hospital Course Hospital Course: is a 32 year old female pt of Dr. Galvez with hx IBS who was admitted yesterday through ER with abd pain and vomiting. She had woken at 4 am and vomited x 10 by the time she got to ER. CT abd/pelvis was nonacute. She was given GI cocktail and felt better so was going to be discharged to home when sx recurred. The ER doctor spoke with the on-call for her GI doctor and pt was a dmitted for IV fluids and pain control. Pt's pain started out epigastric/LUQ/RUQ, 9/10, constant, sharp/crampy/achy. She has had multiple admissions for same in the past. She has been tolerating food since yesterday. Pain is still 5-6/10, down to 3/10 with morphine. Has been taking her anti-emetics regularly but states she does this at home even when she's not feeling poorly. Diet was decreased from bland to full liquid for lunch but does not seem to have made an impact. Her main complaint this morning was anxiety, felt like she couldn't sit still; didn't sleep well last night. She was given ativan 1mg po. Pt would like to be discharged to home, her car is broken down and she appare ntly is needed to deal with that. - Vitals & Intake/Output Vital Signs: Vital Signs Temperature 98.0 F 04/04/22 12:00 Pulse Rate 106 H 04/04/22 12:00 Respiratory Rate 18 04/04/22 12:00 Blood Pressure 128/69 04/04/22 12:00 O2 Sat by Pulse Oximetry 100 04/04/22 12:00 Intake & Output: Intake & Output 04/02/22 04/03/22 04/04/22 04/05/22 11:59 11:59 11:59 11:59 Intake Total 1039 2818 Balance 1039 2818 Weight 79.379 kg 78.2 kg - Lab Result Diagrams: 04/04/22 08:52 04/04/22 08:52 Lab Results-Last 24 Hrs: Lab Results-Last 24 Hours 04/03/22 04/04/22 04/04/22 Range/Units 15:27 08:52 08:52 WBC 13.1 H (4.0-10.5) x10^3/uL RBC 4.78 (4.1-5.4) x10^6/uL Hgb 16.1 H (12.0-16.0) g/dL Hct 47.2 H (35-47) % MCV 98.7 (78-100) fL MCH 33.7 H (26-32) pg MCHC 34.1 (32-36) g/dL RDW 10.9 L (11.5-14.0) % Plt Count 276 (150-450) x10^3/uL MPV 8.9 (7.5-11.0) fL Gran % 73.3 H (36.0-66.0) % Immature Gran % (Auto) 0.4 (0.00-0.4) % Nucleat RBC Rel Count 0.0 (0.00-0.1) % Eos # (Auto) 0.06 (0-0.5) x10^3/uL Immature Gran # (Auto) 0.05 H (0.00-0.03) x10^3u/L Absolute Lymphs (auto) 2.64 (1.0-4.6) x10^3/uL Absolute Monos (auto) 0.71 (0.0-1.3) x10^3/uL Absolute Nucleated RBC 0.00 (0.00-0.01) x10^3u/L Lymphocytes % 20.1 L (24.0-44.0) % Monocytes % 5.4 (0.0-12.0) % Eosinophils % 0.5 (0.00-5.0) % Basophils % 0.3 (0.0-0.4) % Absolute Granulocytes 9.62 H (1.4-6.9) x10^3/uL Basophils # 0.04 (0-0.4) x10^3/uL Sodium 134 L 134 L (137-145) mmol/L Potassium 3.6 3.2 L (3.5-5.1) mmol/L Chloride 100 99 (98-107) mmol/L Carbon Dioxide 27 20 L (22-30) mmol/L Anion Gap 10.7 17.2 H (5-15) MEQ/L BUN < 2 L < 2 L (7-17) mg/dL Creatinine 0.64 0.63 (0.52-1.04) mg/dL Estimated GFR > 60.0 > 60.0 ML/MIN Glucose 89 126 H (74-106) mg/dL Calcium 8.6 9.2 (8.4-10.2) mg/dL Magnesium 1.9 (1.6-2.3) mg/dL Total Bilirubin 0.80 (0.2-1.3) mg/dL AST 53 H (14-36) U/L ALT 41 H (0-35) U/L Alkaline Phosphatase 129 H (38-126) U/L Serum Total Protein 7.9 (6.3-8.2) g/dL Albumin 4.4 (3.5-5.0) g/dL - Radiology Exams Ordered Rad Exams-Entire Visit: Radiology Procedures Category Date Time Status ABDOMEN AND PELVIS W/0 CONTRAS [CT] Stat Exams 04/02/22 12:52 Completed Discharge Exam General Appearance: no apparent distress, alert Neurologic Exam: oriented x 3, cooperative, other (anxious) Eye Exam: eyes nml inspection Ears, Nose, Throat Exam: moist mucous membranes Neck Exam: normal inspection Respiratory Exam: normal breath sounds, lungs clear, No crackles/rales, No rhonchi, No wheezing Cardiovascular Exam: regular rate/rhythm, normal heart sounds, No murmur Gastrointestinal/Abdomen Exam: soft, normal bowel sounds, No tenderness, No distention, No mass, No guarding, No rebound Back Exam: normal inspection, No rash Extremity Exam: normal inspection, No pedal edema, No swelling Skin Exam: normal color, warm, dry, No rash Final Diagnosis/Problem List - Final Discharge Diagnosis/Problem (1) Abdominal pain Current Visit: Yes Status: Acute Assessment & Plan: Some improvement. CT was nonacute. Has slight elevation in wbc count, down from yesterday; could certainly be related to her previous vomiting. OK to discharge to home; if any increase in abd pain or new or worrisome sx, return to ER. Code(s): R10.9 - UNSPECIFIED ABDOMINAL PAIN (2) Nausea and vomiting Current Visit: Yes Status: Resolved Code(s): R11.2 - NAUSEA WITH VOMITING, UNSPECIFIED (3) Irritable bowel syndrome (IBS) Current Visit: No Status: Chronic (4) Hypokalemia Current Visit: Yes Status: Resolved Code(s): E87.6 - HYPOKALEMIA - Discharge Disposition: Home, Self-Care Condition: Stable Prescriptions: New PANTOPRAZOLE 40 mg Tablet [Protonix 40MG Tablet] 40 mg PO QPM 14 Days #14 tab Continue Promethazine HCl 25 mg [Phenergan 25 mg] 25 mg PO Q8H PRN PRN #10 tablet PRN Reason: Vomiting Amitriptyline HCl 10 mg [Elavil 10 mg] 50 mg PO HS Duloxetine HCl 30 mg [Cymbalta 30 MG Capsule] 60 mg PO DAILY Ondansetron ODT 4 MG [Zofran Odt 4 mg] 1 ea PO QIDPRN PRN #7 tablet PRN Reason: n/v Propranolol HCl 10 mg PO DAILY Prazosin HCl [Minipress] 1 mg PO DAILY Follow up with: SAHRA GALVEZ MD [Primary Care Provider] - 04/18/22 9:45 am
== END 2022-04-04 15:23 | disposition home or self-care (01) ==
LOC: ED 10:25 → MED SURG 22:15
PROVIDERS: ADMIT Family Medicine; ATTEND Family Medicine
DX: R10.9 Unspecified abdominal pain (principal); R11.2 Nausea with vomiting, unspecified; K58.9 Irritable bowel syndrome, unspecified; E87.6 Hypokalemia; F41.9 Anxiety disorder, unspecified; Z20.828 Contact with and (suspected) exposure to other viral communicable diseases; Z79.899 Other long term (current) drug therapy; Z72.0 Tobacco use
CPT/HCPCS: 0241U; 36000; 36415; 74176; 80048; 80053; 81015; 83690; 83735; 84484; 85025; 93005; 93268; 96360; 96374; 96375; 96376; 99285; G0378; J2270; J2405; Q0162; A9270-GY

== ENCOUNTER 2023-01-05 12:08 | Emergency (ER) | payer OTHER ==
--- NOTE | 2023-01-05 12:35 | ERPHSYRPT ---
- History of Present Illness Time Seen by Provider: 01/05/23 12:34 Source: patient Exam Limitations: no limitations Patient Subjective Stated Complaint: pt here for redness and swelling to both ankles for 4 days now, pt has home ankle monitor in left leg, Triage Nursing Assessment: pt alert, walked in, resp easy.skin w/d/p, has swelling redness and swelling to ankles, Timing/Duration: day(s) (4), gradual onset, worse Quality: burning Severity: moderate Location: other (ankles) Possible Causes: no cause identified, other (wears an ankle monitor device for a month, may be related) Associated Symptoms: denies symptoms, No fever, No hives Allergies/Adverse Reactions: cephalexin monohydrate [From [employer]] Allergy (Mild, Verified 01/05/23 12:19) Hives Home Medications: Amitriptyline HCl 10 mg [Elavil 10 mg] 50 mg PO HS 04/03/21 [History] Duloxetine HCl 30 mg [Cymbalta 30 MG Capsule] 60 mg PO DAILY 08/28/21 [History] Prazosin HCl [Minipress] 1 mg PO DAILY 04/02/22 [History] Propranolol HCl 10 mg PO DAILY 04/02/22 [History] Hx Tetanus, Diphtheria Vaccination/Date Given: No Hx Influenza Vaccination/Date Given: Yes Hx Pneumococcal Vaccination/Date Given: No Immunizations Up to Date: Yes Travel Risk - International Travel Have you traveled outside of the country in past 3 weeks: No - Coronavirus Screening Are you exhibiting any of the following symptoms?: No Close contact with a COVID-19 positive Pt in past 14-21 Days: No - Vaccine Status Have you recieved a Covid-19 vaccination: Yes [employer]: [place] - Vaccination Dates Dates if Unknown: ? - Review of Systems Constitutional: No Symptoms Eyes: No Symptoms Ears, Nose, & Throat: No Symptoms Respiratory: No Symptoms Cardiac: No Symptoms Abdominal/Gastrointestinal: No Symptoms Genitourinary Symptoms: No Symptoms Musculoskeletal: No Symptoms Skin: No Symptoms Neurological: No Symptoms Psychological: No Symptoms Endocrine: No Symptoms Hematologic/Lymphatic: No Symptoms Immunological/Allergic: No Symptoms All Other Systems: Reviewed and Negative - Past Medical History Pertinent Past Medical History: Yes Neurological History: No Pertinent History ENT History: Other Cardiac History: No Pertinent History Respiratory History: No Pertinent History Endocrine Medical History: No Pertinent History Musculoskeletal History: Other GI Medical History: Irritable Bowel History: Other Psycho-Social History: Anxiety, Depression Female Reproductive Disorders: No Pertinent History Other Medical History: IBS. Recent ACL reconstruction in 2020 - Past Surgical History Past Surgical History: Yes Neuro Surgical History: No Pertinent History Cardiac: No Pertinent History Respiratory: No Pertinent History Gastrointestinal: Cholecystectomy Genitourinary: No Pertinent History Musculoskeletal: Orthopedic Surgery Female Surgical History: No Pertinent History Other Surgical History: knee - tonsils - adenoids - tubes in ears. nicole - Social History Smoking Status: Current every day smoker How long have you smoked: 13 Exposure to second hand smoke: Yes Drug Use: marijuana Patient Lives Alone: No - Female History Hx Last Menstrual Period: done Hx Now: No - Nursing Vital Signs Nursing Vital Signs: Initial Vital Signs Temperature 97.6 F 01/05/23 12:21 Pulse Rate 118 H 01/05/23 12:21 Respiratory Rate 18 01/05/23 12:21 Blood Pressure 144/103 01/05/23 12:21 O2 Sat by Pulse Oximetry 97 01/05/23 12:21 Pain Scale Pain Intensity 5 - Physical Exam General Appearance: no apparent distress Eye Exam: PERRL/EOMI Ears, Nose, Throat Exam: normal ENT inspection Neck Exam: normal inspection Respiratory Exam: normal breath sounds Cardiovascular Exam: regular rate/rhythm Gastrointestinal/Abdomen Exam: soft Pelvic Exam: not done Rectal Exam: not done Back Exam: normal inspection Extremity Exam: normal inspection, normal range of motion Neurologic Exam: alert, oriented x 3, cooperative Skin Exam: rash, other (cellulitis in lower ankle bilaterally, left more than right, no abscess, no streaks) SpO2 Interpretation: normal SpO2: 97 O2 Delivery: Room Air - Course Nursing assessment & vital signs reviewed: Yes - Progress Progress: unchanged Progress Note: 01/05/23 13:07 Cellulitis in lower ankle area, not extensive, more so on the left adjacent to the ankle monitor, the device may have chafed the skin which allowed the infection, no abscess or streaking. Allergic to keflex, Rx bactrim and augmentin, says she will need nausea med, requests zofran and phenegan. Medical Desision Making - Risk of complications Low Risk: Low risk of morbidity from additional dx testing or treatment The pt has a mod risk of morbidity or mortality based on: Need for prescription drug management - Departure Departure Disposition: Home Clinical Impression: Cellulitis Qualifiers: Site of cellulitis: extremity Site of cellulitis of extremity: lower extremity Laterality: unspecified laterality Qualified Code(s): L03.119 - Cellulitis of unspecified part of limb Condition: Stable Critical Care Time: No Referrals: SAHRA GALVEZ MD [Primary Care Provider] - Follow Up with PCP/3 days Instructions: Cellulitis (Skin Infection), Adult (DC) Prescriptions: Promethazine HCl 25 mg [Phenergan 25 mg] 25 mg PO Q6H PRN PRN #30 tablet PRN Reason: Nausea/Vomiting Ondansetron ODT 4 MG [Zofran Odt 4 mg] 4 mg PO Q6HPRN PRN #30 tab PRN Reason: Nausea Amox Tr/Potass Clav. 875 mg [Augmentin 875-125 Tablet] 875 mg PO BID #20 tablet Smz/Tmp Ds Tablet [Bactrim Ds Tablet] 1 tab PO Q12H #20 tablet
[2023-01-05 13:38] VITALS: BP 173/84; PULSE 98; O2SAT 100
== END 2023-01-05 13:35 | disposition home or self-care (01) ==
LOC: ED 12:08
DX: L03.116 Cellulitis of left lower limb (principal); L03.115 Cellulitis of right lower limb; Z72.0 Tobacco use
CPT/HCPCS: 99281

== ENCOUNTER 2024-01-16 15:44 | Emergency (ER) | payer OTHER ==
--- NOTE | 2024-01-16 15:57 | ERPHSYRPT ---
- History of Present Illness Time Seen by Provider: 01/16/24 15:57 Source: patient Exam Limitations: no limitations Physician History: This is an obese 33-year-old white female patient of Dr. Haney who states that for just over a month she has had pain and swelling in both of her feet. Her outpatient, primary care provider are aware of this. In addition, she is seeing Dr. Sosa, a director of workforce development who also has evaluated her for vascular cause of her pain. He feels this is most likely peripheral neuropathy but has scheduled an outpatient vascular test for her. Patient is only taking naproxen and Tylenol to control her pain. On 12/23/2023, patient underwent an x-ray of her right knee and it was read by the radiologist as normal study. On 01/02/2024, the patient underwent a left leg arterial Doppler. The results were read by the radiologist and showed a normal NOA. The study was negative for critical arterial stenosis or obstruction. Patient has not had any recent trauma or fall involving her bilateral lower extremities. Patient has history of peripheral neuropathy, irritable bowel syndrome, anxiety and depression. Patient is a daily smoker of tobacco cigarettes. Method of Injury: other (No known injury) Occurred: other (Pain has been present in bilateral feet for over a month) Quality: constant, burning, other (Sharp shooting pains) Severity of Pain-Max: moderate Severity of Pain-Current: moderate Lower Extremities Pain: foot: bilateral Modifying Factors: Improves With: other (Palpation worsens pain) Associated Symptoms: other (Hurts to bear weight) Allergies/Adverse Reactions: cephalexin monohydrate [From Keflex] Allergy (Mild, Verified 01/16/24 15:49) Hives Home Medications: Amitriptyline HCl 10 mg [Elavil 10 mg] 50 mg PO HS 04/03/21 [History] Propranolol HCl 10 mg PO DAILY 04/02/22 [History] Hx Tetanus, Diphtheria Vaccination/Date Given: No Hx Influenza Vaccination/Date Given: Yes Hx Pneumococcal Vaccination/Date Given: No Travel Risk - International Travel Have you traveled outside of the country in past 3 weeks: No - Emerging Infectious Disease Are you exhibiting symptoms associated with any current EIDs: No - Review of Systems Constitutional: No Symptoms Eyes: No Symptoms Ears, Nose, & Throat: No Symptoms Respiratory: No Symptoms Cardiac: No Symptoms Abdominal/Gastrointestinal: No Symptoms Genitourinary Symptoms: No Symptoms Musculoskeletal: Other (Bilateral feet and ankle pain), No Injury Skin: No Symptoms Neurological: No Symptoms Psychological: No Symptoms Endocrine: No Symptoms Hematologic/Lymphatic: No Symptoms Immunological/Allergic: No Symptoms All Other Systems: Reviewed and Negative - Past Medical History Pertinent Past Medical History: Yes Neurological History: Peripheral Neuropathy ENT History: Other Cardiac History: Other Respiratory History: No Pertinent History Endocrine Medical History: No Pertinent History Musculoskeletal History: Other GI Medical History: Irritable Bowel History: Other Psycho-Social History: Anxiety, Depression Female Reproductive Disorders: No Pertinent History Other Medical History: ACL REPAIR AT AGE 14 AND CARTILAGE REMOVAL AT AGE 15. CARDIAC - SEE ABOVE. STATES HAD BLOOD WORK AND IT WAS NORMAL, seeing a director of workforce development 2023 - Past Surgical History Past Surgical History: Yes Neuro Surgical History: No Pertinent History Cardiac: No Pertinent History Respiratory: No Pertinent History Gastrointestinal: Cholecystectomy Genitourinary: No Pertinent History Musculoskeletal: Orthopedic Surgery Female Surgical History: No Pertinent History Other Surgical History: knee - tonsils - adenoids - tubes in ears. nicole - Social History Smoking Status: Current every day smoker How long have you smoked: 13 Exposure to second hand smoke: Yes Drug Use: marijuana Patient Lives Alone: No - Nursing Vital Signs Nursing Vital Signs: Initial Vital Signs Temperature 97.2 F 01/16/24 16:05 Pulse Rate 100 H 01/16/24 16:05 Respiratory Rate 16 01/16/24 16:05 Blood Pressure 137/107 01/16/24 16:05 O2 Sat by Pulse Oximetry 98 01/16/24 16:05 Pain Scale Pain Intensity 9 - Physical Exam General Appearance: mild distress, alert, anxiety, obese, other (Tearful) Eyes, Ears, Nose, Throat Exam: normal ENT inspection, moist mucous membranes Neck Exam: normal inspection, non-tender, supple, full range of motion Cardiovascular/Respiratory Exam: chest non-tender, no respiratory distress Gastrointestinal/Abdominal Exam: non-tender Back Exam: normal inspection, normal range of motion, No CVA tenderness, No vertebral tenderness Hips Exam: bilateral: non-tender, normal inspection, normal range of motion, no evidence of injury Legs Exam: bilateral leg: non-tender, normal inspection, normal range of motion, no evidence of injury Knees Exam: bilateral knee: non-tender, normal inspection, normal range of motion, no evidence of injury Ankle Exam: bilateral ankle: normal inspection, normal range of motion, no evidence of injury, soft tissue tenderness (Anteriorly), other (No evidence of cellulitis) Foot Exam: bilateral foot: normal inspection, normal range of motion, no evidence of injury, bone tenderness, soft tissue tenderness, other (No evidence of cellulitis. Very strong dopplerable pulses both PT and dorsalis pedis. Feet are warm. No skin lesions) Neuro/Tendon Exam: normal sensation, normal motor functions, normal tendon functions, responds to pain, no evidence tendon injury Mental Status Exam: alert, oriented x 3, cooperative Skin Exam: normal color, warm, dry SpO2 Interpretation: normal O2 Delivery: Room Air - Course Nursing assessment & vital signs reviewed: Yes Ordered Tests: Active Orders 24 hr Category Date Time Status BMP Stat Lab 01/16/24 16:21 Ordered MAGNESIUM Stat Lab 01/16/24 16:21 Ordered Medication Summary Discontinued Medications Generic Name Dose Route Start Last Admin Trade Name Freq PRN Reason Stop Dose Admin Methylprednisolone Sodium 0 mg 01/16/24 16:24 Succinate 125 mg/ Sterile IM 01/16/24 16:25 Water 2 ml STAT ONE Hydromorphone HCl 0.5 mg 01/16/24 16:24 Hydromorphone 1 Mg/1ml Inj IM 01/16/24 16:25 STAT ONE Ondansetron HCl 4 mg 01/16/24 16:23 Zofran 4 Mg/Udtablet Orally Disintegrating PO 01/16/24 16:24 STAT ONE - Progress Progress: improved, pain not gone completely, re-examined Progress Note: 01/16/24 16:38 My medical decision making and the assignment of low complexity to this patient's medical issue today in the emergency department is based on review of the patient's past medical history, review of the patient's outpatient radiographic studies results, review the patient's medication list, review the patient drug allergy list, history of present illness and physical findings on examination. The workup in this patient includes bedside Doppler of pedal pulses, BMP, and magnesium level. Differential diagnosis includes anxiety, electrolyte abnormalities, peripheral neuropathy, other neurologic abnormalities Counseled pt/family regarding: lab results, diagnosis, need for follow-up Medical Desision Making - Diagnostic Testing Diagnostic test were ordered, analyzed, and reviewed by me: Yes - Risk of complications The pt has a mod risk of morbidity or mortality based on: Need for prescription drug management - Departure Departure Disposition: Home Clinical Impression: Bilateral foot pain Condition: Stable Critical Care Time: No Referrals: IZZY HANEY [Primary Care Provider] - Follow up/PCP as directed Additional Instructions: Make sure that you keep a 3-hour window between your Percocet pain medicine and your gabapentin. Stop your naproxen. May resume after prednisone medication has run out. Call your primary prescribing provider, your director of workforce development on 01/19/2024, to make an appointment to be seen in the next 3 to 5 days. Discussed with your primary care provider about referring you to a neurologist and/or a vascular surgeon. Prescriptions: Oxycodone HCl/Acetaminophen [Percocet 5-325 mg Tablet] 1 each PO Q8H PRN PRN #6 tablet MDD 3 PRN Reason: Moderate To Severe Pain Prednisone 10 mg [Deltasone 10 mg] 10 mg PO TID #12 tablet Orphenadrine Citrate 100 mg [Norflex 100 MG Tablet] 100 mg PO DAILY 7 Days #10 tab
[2024-01-16 16:12] VITALS: BP 137/107; PULSE 100; RESP 16; TEMP 97.2; O2SAT 98
[2024-01-16] MEDS ORDERED: Sterile H2O 10 ml IJ ONE (16:29)
[2024-01-16] MEDS ORDERED: solu-MEDROL ONE (16:30)
[2024-01-16] MEDS ORDERED: ZOFRAN ODT 4 MG ONE (16:30)
[2024-01-16] MEDS ORDERED: Hydromorphone 1 mg/ml Injection ONE (16:31)
[2024-01-16] MEDS: ZOFRAN ODT 4 MG PO ONE (16:34)
[2024-01-16] MEDS: Hydromorphone 1 mg/ml Injection IM ONE (16:35)
[2024-01-16] MEDS: solu-MEDROL 125 MG, Sterile H2O 10 ml 2 ML IM ONE (16:35)
[2024-01-16 16:54] LABS: Calcium 9.5 mg/dL (8.4-10.2); Creatinine 1 0.8 mg/dL (0.52-1.04); MAGNESIUM 1.8 mg/dL (1.6-2.3)
[2024-01-16] MEDS ORDERED: Norflex 100 MG Tablet PO ONE (16:59)
[2024-01-16] MEDS: Norflex 100 MG Tablet PO ONE (17:00)
== END 2024-01-16 17:32 | disposition home or self-care (01) ==
LOC: ED 15:44
DX: M79.671 Pain in right foot (principal); M79.672 Pain in left foot; Z79.52 Long term (current) use of systemic steroids; Z79.891 Long term (current) use of opiate analgesic; Z79.899 Other long term (current) drug therapy; Z72.0 Tobacco use
CPT/HCPCS: 36415; 80048; 83735; 96372; 99283; J1170; J2919; Q0162; A9270-GY